=== PATIENT | male | born 1945 | race Caucasian/White ===

== ENCOUNTER 2025-04-27 14:52 | Inpatient (IN) ==
[2025-04-27] MEDS ORDERED: METOPROLOL TARTRATE 1 MG/ML VIAL IV ONE (15:10)
[2025-04-27] MEDS: METOPROLOL TARTRATE 1 MG/ML VIAL IV ONE (15:10)
--- NOTE | 2025-04-27 15:16 | XRay Report ---
XR chest 1V portable CLINICAL HISTORY: afib COMPARISON STUDY: None FINDINGS: There is mild cardiomegaly without pulmonary vascular congestion. No consolidation or pleur al effusion. No pneumothorax. IMPRESSION: No acute findings. ACT 112: Negative or not required by law. Electronically signed by: Toni Thomas M.D. 04/27/2025 3:15 PM
[2025-04-27 15:21] LABS: Hematocrit (blood only) 43.6 % (42.0-52.0); Hemoglobin 14.4 g/dl (14.0-18.0); Immature Granulocytes # (auto) 0.03 K/uL (0.01-0.20); Immature Granulocytes % (auto) 0.4 %; Mean Corpuscular Hemoglobin 31.0 pg (25.0-34.0); Mean Corpuscular Volume 93.8 fL (80.0-100.0); Platelet Count 141 K/uL (130-400); RDW Standard Deviation 46.8 fL (36.4-46.3); Red Blood Count 4.65 M/uL (4.70-6.10); White Blood Count 7.85 K/ul (4.8-10.8)
[2025-04-27] MEDS: OPTIRAY 320 125ml IV ONE (15:33)
[2025-04-27 15:40] LABS: Alanine Aminotransferase 13 U/L (7-52); Albumin Globulin Ratio 1.3 (0.9-2); Albumin Level 4.2 gm/dl (3.4-5.0); Alkaline Phosphatase 57 U/L (34-104); Anion Gap 11 (3-11); Bilirubin,Total 1.0 mg/dl (0.2-1.0); Blood Urea Nitrogen 15 mg/dl (6-23); Calcium 9.3 mg/dl (8.6-10.3); Carbon Dioxide 25 mmol/L (21-32); Chloride 100 mmol/L (98-107); Globulin 3.2 gm/dl (2.5-4.0); Glucose 155 mg/dl (70-99(Fasting)); Potassium 4.2 mmol/L (3.5-5.1); Sodium 136 mmol/L (136-145); Total Protein 7.4 gm/dl (6.0-8.3)
--- NOTE | 2025-04-27 15:47 | CT Scan Report ---
CT angio chest PE protocol CT DOSE: 898.99 mGy.cm HISTORY: Dyspnea, afib, PNA. TECHNIQUE: Multiple CTA images of the chest were obtained after the intravenous administration of 120 ml Optiray. Coronal and sagittal MIPS were obtained from the axial data set and were submitted for review. All measurements were obtained according to NASCET criteria. A dose lowering technique was u tilized adhering to the principles of ALARA. COMPARISON STUDY: None FINDINGS: There is motion artifact due to breathing. There are mild airway secretions. There is moder ate cardiomegaly with mild prominence of the pulmonary vasculature consistent with CHF. There are tra ce bilateral pleural effusions. There is septal thickening in the lungs and patchy groundglass opacit y at the mid and lower lungs which could represent pulmonary edema or pneumonia. There is bandlike op acity in the lung apices which likely represents scarring. No pneumothorax. No enlarged adenopathy. N o thoracic aortic aneurysm. No pulmonary embolism seen. No acute osseous findings. IMPRESSION: 1. No pulmonary embolism. 2. CHF with pulmonary edema versus pneumonia. ACT 112: Negative or not required by law. The above report was generated using voice recognition software. It may contain grammatical, syntax o r spelling errors. Electronically signed by: Toni Thomas M.D. 04/27/2025 3:45 PM
[2025-04-27] MEDS ORDERED: AZITHROMYCIN 500 MG/255 ML BAG IV ONE (15:48)
[2025-04-27] MEDS: METOPROLOL TARTRATE 1 MG/ML VIAL IV STA (15:59)
--- NOTE | 2025-04-27 16:01 | Emergency Department Note ---
Impression & Plan Atrial fibrillation with rapid ventricular response, Ventricular tachycardia, Pneumonia, CHF exacerbation ED Provider Note NAME: NATALIE [id number] LIDIA AGE: 80 SEX: M : 1945 ARRIVES VIA: Ambulance INFORMANT: Patient, ED PROVIDER(S): Vikram Gant MD CHIEF COMPLAINT: A-fib, chest pain HPI: This is a 80-year-old male presenting for A-fib and chest/back pain. Patient notes that being having low back pain and shoulder pain yesterday. He went to medical today where he was found to be in A-fib with RVR. He was sent to hypoxic as well. EMS provided oxygen without significant proved meant in his oxygenation. Patient continues to feel chest/back pain. He states his history of "leaky valve ". He reports has not had surgery for this yet. He reports previous heart attack in 2021. Patient describes prodrome of cough, chills previously over the past few days. ROS: See above HPI for pertinent positives & negatives. A total of 10 systems reviewed and were otherwise negative. PAST MEDICAL HISTORY: See Below PAST SURGICAL HISTORY: See Below FAMILY HISTORY: See Below SOCIAL HISTORY: See Below HOME MEDICATIONS: See Below ALLERGIES: See Below VITALS: See Below PHYSICAL EXAMINATION: General: resting comfortably in no acute distress Head: Normocephalic and atraumatic Eyes: Normal inspection, extraocular muscles intact Ear, nose, throat: Normal external exam Neck: Normal range of motion Respiratory: Crackles in all lung field Cardiovascular: Regular rate/rhythm, no murmur GI: soft, nontender, no guarding or rebound Extremities: nontender, moves all extremities Neuro: The patient awake and alert, appropriately conversive, no focal deficits, symmetric faces Skin: Warm, dry, and intact MEDICAL DECISION MAKING: This is a 80-year-old male presenting for A-fib/chest pain/back pain. Patient appears to be in A-fib with RVR with rates between 150 and 180. Will give metoprolol at this time. Patient has previous fluid overload on exam and legs. He has 2+ pitting edema. Otherwise patient describes prodrome of URI. Will do screening chest x-ray to assess for fluid overload versus pneumonia -Chest Xray independently interpreted by me showing cardiomegaly, no pneumothorax, focal opacity, or pleural effusions. -Blood reveals no leukocytosis or anemia. Creatinine 1.43. No severe electrolyte disturbances. -Troponin is elevated at 177 -CT chest does reveal signs of CHF with signs of pulmonary edema versus pneumonia -Will give antibiotics at this time but also give Lasix due to concerns of fluid overload, especially in setting of patient's previous aortic regurgitation, aortic stenosis, show regurg/stenosis and previous history of heart failure - Patient episode of NSVT for a few beats and then at when had a long run of ventricular tachycardia. Patient was asymptomatic at this time. He was awake, alert and talking. He spontaneously broke without any intervention. -At this time I bolused the patient with amiodarone as well as drip. Differential diagnosis: Tachydysrhythmia, CHF, pneumonia, PE Independent History obtained from: Skilled Nursing guards Diagnostics interpreted by me: ECG: None Cardiac Monitoring: An order was placed for continuous cardiac monitoring. The monitor shows a rate of 90 with atrial fibrillation hythm. Critical Care Note: I have personally spent 41 minutes of critical care time in the direct management of this patient. This includes bedside care, interpretation of diagnostic studies, and testing, discussion with consultants, patient, and family members, and other required patient management activities. This 41 minutes is in excess of all separately billable procedures. Past Med/Surg History Problem List (Updated 04/28/25 @ 23:54 by Vikram Gant MD) CHF exacerbation (Acute) Pneumonia (Acute) Ventricular tachycardia (Acute) Cardiomyopathy Elevated troponin Transaminitis Demand ischemia Atrial fibrillation with rapid ventricular response (Acute) Severe aortic regurgitation Pneumonia Hypoxic respiratory failure COVID V tach A-fib Valvular heart disease (HFpEF) heart failure with preserved ejection fraction Edema CKD (chronic kidney disease) Dyslipidemia Acute heart failure with preserved ejection fraction (HFpEF) Hypertension Mitral regurgitation and mitral stenosis Aortic regurgitation Aortic stenosis Medical History Cellulitis Major depressive disorder with psychotic features Degenerative disc disease Social History Smoking Status: Unknown if ever smoked Tobacco Type: Cigarettes Hx Alcohol Use: No Hx Substance Use: No Preferred Language: Swiss Communication Ability: Effective Visual Impairment: No Limitations Hearing Ability: Normal Gifted Teacher Required: No Beliefs That Will Affect Care: None Current Living Situation: Other Current Living Situation Comment: [facility] Feels Safe at Home: Yes Allergies Allergies Allergy/AdvReac Type Severity Reaction Status Date / Time No Known Drug Allergies Allergy Unknown Unverified 10/09/24 13:44 Home Meds Home Medications Medication Instructions Recorded Confirmed amlodipine 10 mg tablet 10 mg PO DAILY 11/20/22 10/09/24 aspirin 81 mg tablet,delayed 81 mg PO DAILY 11/20/22 10/09/24 release (Adult Low Dose Aspirin) atenolol 50 mg tablet 50 mg PO DAILY 11/20/22 10/09/24 lisinopril 40 mg tablet 40 mg PO DAILY 11/20/22 10/09/24 rosuvastatin 5 mg tablet 5 mg PO DAILY 11/20/22 10/09/24 vit B complex and vit C 1 tab PO DAILY 11/20/22 10/09/24 no.24-ferrous fum 66 mg-folic 1,000 mcg tablet (Nephron FA) thiothixene 2 mg capsule See Rx Instructions PO .COMPLEX 01/19/23 10/09/24 bumetanide 2 mg tablet 2 mg PO DAILY 10/09/24 10/09/24 dapagliflozin propanediol 10 mg 10 mg PO DAILY 10/09/24 10/09/24 tablet (Farxiga) omeprazole 20 mg capsule,delayed 20 mg PO DAILY 10/09/24 10/09/24 release trihexyphenidyl 5 mg tablet 5 mg PO TID 10/09/24 10/09/24 Results & Data (ED) Vital Signs Vital Signs - 24 hr 04/27/25 14:53 04/27/25 15:00 04/27/25 15:04 Temperature 37.0 C Temperature Source Oral Pulse Rate 155 H 158 H 145 H Pulse Rate from SpO2 Sensor 158 H Respiratory Rate 23 26 H Blood Pressure 112/68 Blood Pressure Mean 82 Pulse Oximetry 86 L 89 L Oxygen Delivery Method Room Air Non-rebreather Oxygen Flow Rate 15 Sepsis Recent Fever Within 48 Hours No Sepsis New/Unexplained Change in Mental Status No Sepsis Action Taken by Nursing Physician Notified Pulse Oximetry Post Tiitration 04/27/25 15:10 04/27/25 15:19 04/27/25 15:21 Temperature Temperature Source Pulse Rate 147 H 157 H Pulse Rate from SpO2 Sensor Respiratory Rate Blood Pressure 112/68 113/77 Blood Pressure Mean 94 Pulse Oximetry 81 L Oxygen Delivery Method Oxymask Oxygen Flow Rate 6 Sepsis Recent Fever Within 48 Hours Sepsis New/Unexplained Change in Mental Status Sepsis Action Taken by Nursing Pulse Oximetry Post Tiitration 04/27/25 15:41 04/27/25 15:41 04/27/25 15:42 Temperature Temperature Source Pulse Rate 152 H 145 H Pulse Rate from SpO2 Sensor 138 H Respiratory Rate 27 H Blood Pressure 115/91 115/91 Blood Pressure Mean 97 Pulse Oximetry 90 Oxygen Delivery Method Non-rebreather Oxygen Flow Rate 15 Sepsis Recent Fever Within 48 Hours Sepsis New/Unexplained Change in Mental Status Sepsis Action Taken by Nursing Pulse Oximetry Post Tiitration 04/27/25 15:45 04/27/25 15:45 04/27/25 15:50 Temperature Temperature Source Pulse Rate 138 H Pulse Rate from SpO2 Sensor 144 H Respiratory Rate 23 Blood Pressure 113/83 113/83 Blood Pressure Mean 90 93 Pulse Oximetry 89 L Oxygen Delivery Method Non-rebreather Non-rebreather Oxygen Flow Rate 15 15 Sepsis Recent Fever Within 48 Hours Sepsis New/Unexplained Change in Mental Status Sepsis Action Taken by Nursing Pulse Oximetry Post Tiitration 90 04/27/25 15:50 04/27/25 15:50 04/27/25 15:51 Temperature Temperature Source Pulse Rate 149 H Pulse Rate from SpO2 Sensor 155 H Respiratory Rate 22 Blood Pressure 104/85 Blood Pressure Mean 91 Pulse Oximetry 86 L Oxygen Delivery Method Non-rebreather Non-rebreather Oxygen Flow Rate 15 15 Sepsis Recent Fever Within 48 Hours Sepsis New/Unexplained Change in Mental Status Sepsis Action Taken by Nursing Pulse Oximetry Post Tiitration Laboratory Data 04/28/25 04:34 04/28/25 11:09 Lab Results 04/27/25 04/27/25 04/27/25 Range/Units 15:03 15:09 15:16 WBC 7.85 (4.8-10.8) K/ul RBC 4.65 L (4.70-6.10) M/uL Hgb 14.4 (14.0-18.0) g/dl POC Hgb 15.3 (14.0-18.0) g/dl Hct 43.6 (42.0-52.0) % POC Hct 45 (42-52) % MCV 93.8 (80.0-100.0) fL MCH 31.0 (25.0-34.0) pg MCHC 33.0 (32.0-36.0) g/dL RDW Std Deviation 46.8 H (36.4-46.3) fL RDW Coeff of Demarcus 13.7 (11.5-14.5) % Plt Count 141 (130-400) K/uL MPV 11.2 (9.4-12.4) fL Immature Gran % (Auto) 0.4 % Neut % (Auto) 74.4 % Lymph % (Auto) 8.9 % [place] % (Auto) 15.9 % Eos % (Auto) 0.1 % Baso % (Auto) 0.3 % Neut # (Auto) 5.84 (1.40-6.50) K/uL Lymph # (Auto) 0.70 L (1.20-3.40) K/uL [place] # (Auto) 1.25 H (0.11-0.59) K/uL Eos # (Auto) 0.01 (0.00-0.50) K/uL Baso # (Auto) 0.02 (0.00-0.20) K/uL Immature Gran # (Auto) 0.03 (0.01-0.20) K/uL PT 11.5 (9.0-12.0) Seconds INR 1.1 (0.9-1.1) APTT 31 (21-31) Seconds PTT Ratio 1.2 POC Sodium 137 (135-144) mmol/L Sodium 136 (136-145) mmol/L POC Potassium 4.2 (3.3-5.0) mmol/L Potassium 4.2 (3.5-5.1) mmol/L POC Chloride 100 L (101-112) mmol/L Chloride 100 (98-107) mmol/L Carbon Dioxide 25 (21-32) mmol/L POC Total CO2 24 (24-31) mmol/L Anion Gap 11 (3-11) POC Anion Gap 18.0 (16-25) mmol/L POC BUN 16 (7-18) mg/dl BUN 15 (6-23) mg/dl Creatinine 1.43 H (0.6-1.4) mg/dl POC Creatinine 1.5 H (0.6-1.3) mg/dl Est Cr Clr Drug Dosing Not Reportable eGFR 49.84 BUN/Creatinine Ratio 10.5 (10-20) Glucose 155 H (70-99(Fasting)) mg/dl POC Glucose (other) 154 H (70-99) mg/dl Calcium 9.3 (8.6-10.3) mg/dl POC Ioniz Calcium Madelin 1.11 L (1.12-1.32) mmol/l Total Bilirubin 1.0 (0.2-1.0) mg/dl AST 26 (13-39) U/L ALT 13 (7-52) U/L Alkaline Phosphatase 57 (34-104) U/L Troponin I High Sens 177.4 H* (0-20) pg/ml B-Natriuretic Peptide 728 H (0-100) pg/ml Total Protein 7.4 (6.0-8.3) gm/dl Albumin 4.2 (3.4-5.0) gm/dl Globulin 3.2 (2.5-4.0) gm/dl Albumin/Globulin Ratio 1.3 (0.9-2) Urine Color Urine Appearance (Clear) Urine pH (4.5-7.5) Ur Specific [place] (1.000-1.030) Urine Protein (Negative) Urine Glucose (UA) (Negative) Urine Ketones (Negative) Urine Blood (Negative) Urine Nitrite (Negative) Urine Bilirubin (Negative) Urine Urobilinogen (Negative) Ur Leukocyte Esterase (Negative) Urine Comment Adenovirus (PCR) Not Detected (NotDetected) B. pertussis DNA (PCR) Not Detected (NotDetected) B.parapertussis DNA PCR Not Detected (NotDetected) C. pneumoniae DNA (PCR) Not Detected (NotDetected) Coronavirus OC43 (PCR) Not Detected (NotDetected) Coronavirus HKU1 (PCR) Not Detected (NotDetected) Coronavirus 229E (PCR) Not Detected (NotDetected) SARS-CoV-2 (PCR) DETECTED A (NotDetected) Coronavirus NL63 (PCR) Not Detected (NotDetected) Human Metapneumovir PCR Not Detected (NotDetected) Influenza Type A (PCR) Not Detected (NotDetected) Influenza Type B (PCR) Not Detected (NotDetected) M. pneumoniae (PCR) Not Detected (NotDetected) Parainfluenza 1 (PCR) Not Detected (NotDetected) Parainfluenza 2 (PCR) Not Detected (NotDetected) Parainfluenza 3 (PCR) Not Detected (NotDetected) Parainfluenza 4 (PCR) Not Detected (NotDetected) RSV (PCR) Not Detected (NotDetected) Entero/Rhino (PCR) Not Detected (NotDetected) 04/27/25 Range/Units 16:18 WBC (4.8-10.8) K/ul RBC (4.70-6.10) M/uL Hgb (14.0-18.0) g/dl POC Hgb (14.0-18.0) g/dl Hct (42.0-52.0) % POC Hct (42-52) % MCV (80.0-100.0) fL MCH (25.0-34.0) pg MCHC (32.0-36.0) g/dL RDW Std Deviation (36.4-46.3) fL RDW Coeff of Demarcus (11.5-14.5) % Plt Count (130-400) K/uL MPV (9.4-12.4) fL Immature Gran % (Auto) % Neut % (Auto) % Lymph % (Auto) % [place] % (Auto) % Eos % (Auto) % Baso % (Auto) % Neut # (Auto) (1.40-6.50) K/uL Lymph # (Auto) (1.20-3.40) K/uL [place] # (Auto) (0.11-0.59) K/uL Eos # (Auto) (0.00-0.50) K/uL Baso # (Auto) (0.00-0.20) K/uL Immature Gran # (Auto) (0.01-0.20) K/uL PT (9.0-12.0) Seconds INR (0.9-1.1) APTT (21-31) Seconds PTT Ratio POC Sodium (135-144) mmol/L Sodium (136-145) mmol/L POC Potassium (3.3-5.0) mmol/L Potassium (3.5-5.1) mmol/L POC Chloride (101-112) mmol/L Chloride (98-107) mmol/L Carbon Dioxide (21-32) mmol/L POC Total CO2 (24-31) mmol/L Anion Gap (3-11) POC Anion Gap (16-25) mmol/L POC BUN (7-18) mg/dl BUN (6-23) mg/dl Creatinine (0.6-1.4) mg/dl POC Creatinine (0.6-1.3) mg/dl Est Cr Clr Drug Dosing eGFR BUN/Creatinine Ratio (10-20) Glucose (70-99(Fasting)) mg/dl POC Glucose (other) (70-99) mg/dl Calcium (8.6-10.3) mg/dl POC Ioniz Calcium [place] (1.12-1.32) mmol/l Total Bilirubin (0.2-1.0) mg/dl AST (13-39) U/L ALT (7-52) U/L Alkaline Phosphatase (34-104) U/L Troponin I High Sens (0-20) pg/ml B-Natriuretic Peptide (0-100) pg/ml Total Protein (6.0-8.3) gm/dl Albumin (3.4-5.0) gm/dl Globulin (2.5-4.0) gm/dl Albumin/Globulin Ratio (0.9-2) Urine Color Yellow Urine Appearance Clear (Clear) Urine pH 5.5 (4.5-7.5) Ur Specific [place] 1.037 H (1.000-1.030) Urine Protein Negative (Negative) Urine Glucose (UA) 3+ H (Negative) Urine Ketones Negative (Negative) Urine Blood Negative (Negative) Urine Nitrite Negative (Negative) Urine Bilirubin Negative (Negative) Urine Urobilinogen Negative (Negative) Ur Leukocyte Esterase Negative (Negative) Urine Comment Adenovirus (PCR) (NotDetected) B. pertussis DNA (PCR) (NotDetected) B.parapertussis DNA PCR (NotDetected) C. pneumoniae DNA (PCR) (NotDetected) Coronavirus OC43 (PCR) (NotDetected) Coronavirus HKU1 (PCR) (NotDetected) Coronavirus 229E (PCR) (NotDetected) SARS-CoV-2 (PCR) (NotDetected) Coronavirus NL63 (PCR) (NotDetected) Human Metapneumovir PCR (NotDetected) Influenza Type A (PCR) (NotDetected) Influenza Type B (PCR) (NotDetected) M. pneumoniae (PCR) (NotDetected) Parainfluenza 1 (PCR) (NotDetected) Parainfluenza 2 (PCR) (NotDetected) Parainfluenza 3 (PCR) (NotDetected) Parainfluenza 4 (PCR) (NotDetected) RSV (PCR) (NotDetected) Entero/Rhino (PCR) (NotDetected) Administered Medications Aspirin (Aspirin 81 Mg Ectab) 81 mg PO DAILY PB Stop: 05/28/25 08:59 Last Admin: 04/28/25 08:23 Dose: 81 mg Documented By: LAVERNE Guaifenesin (Guaifenesin 600 Mg Tabcr) 1,200 mg PO Q12 PB Stop: 05/27/25 20:59 Last Admin: 04/28/25 20:37 Dose: 1,200 mg Documented By: Admin: 04/28/25 08:28 Dose: 1,200 mg Documented By: Admin: 04/27/25 20:15 Dose: Not Given Documented By: CATY Amiodarone HCl/Dextrose (Nexterone / D5w) 360 mg in 200 mls @ 16.667 mls/hr IV .Q12H PB Stop: 05/27/25 22:14 Last Admin: 04/28/25 21:45 Dose: 0.5 mg/min, 16.7 mls/hr Documented By: EDEN Co-signed By: CATY Infusion: 04/28/25 21:36 Dose: Infused Documented By: MMDora Co-signed By: CATY Admin: 04/28/25 09:37 Dose: 0.5 mg/min, 16.7 mls/hr Documented By: LAVERNE Co-signed By: CB Infusion: 04/28/25 09:37 Dose: Infused Documented By: LAVERNE Co-signed By: CB Infusion: 04/28/25 07:03 Dose: 0.5 mg/min, 16.7 mls/hr Documented By: CATY Co-signed By: LAVERNE Admin: 04/27/25 22:43 Dose: 0.5 mg/min, 16.7 mls/hr Documented By: TLWilliam Co-signed By: [id number] Cefepime HCl (Maxipime 2000mg) 2,000 mg in 20 mls @ 5 mls/min IV Q12H PB; Protocol Stop: 05/02/25 20:59 Last Admin: 04/28/25 20:38 Dose: 5 mls/min Documented By: Admin: 04/28/25 08:21 Dose: 5 mls/min Documented By: Admin: 04/27/25 20:15 Dose: 5 mls/min Documented By: CATY Heparin Sodium/Dextrose (Heparin 24042 Unit/500 Ml D5w) 25,000 units in 500 mls @ 24 mls/hr IV .[id number] PB; Protocol Stop: 05/27/25 17:29 Last Titration: 04/28/25 19:16 Dose: 1,200 units/hr, 24 mls/hr Documented By: LAVERNE Co-signed By: CATY Admin: 04/28/25 16:23 Dose: 1,200 units/hr, 24 mls/hr Documented By: LAVERNE Co-signed By: [facility] Titration: 04/28/25 16:23 Dose: Infused Documented By: LAVERNE Co-signed By: [facility] Titration: 04/28/25 07:03 Dose: 1,200 units/hr, 24 mls/hr Documented By: CATY Co-signed By: LAVERNE Titration: 04/28/25 05:25 Dose: 1,200 units/hr, 24 mls/hr Documented By: CATY Co-signed By: RASHIDA Titration: 04/28/25 01:35 Dose: 0 units/hr, 0 mls/hr Documented By: CATY Co-signed By: RASHIDAG Admin: 04/27/25 18:45 Dose: 1,650 units/hr, 33 mls/hr Documented By: LAVERNE Co-signed By: CATY Azithromycin (Zithromax) 500 mg in 255 mls @ 127.5 mls/hr IV Q24H PB Stop: 05/03/25 09:59 Last Infusion: 04/28/25 13:41 Dose: Infused Documented By: Admin: 04/28/25 11:04 Dose: 127.5 mls/hr Documented By: LAVERNE Hydrocortisone Sodium (Succinate 50 mg/ Syringe) 1 mls @ 4 mls/min IV Q6H PB Stop: 05/28/25 09:59 Last Admin: 04/28/25 22:19 Dose: 4 mls/min Documented By: Admin: 04/28/25 16:22 Dose: 4 mls/min Documented By: Admin: 04/28/25 11:04 Dose: 4 mls/min Documented By: LAVERNE Insulin Aspart (Insulin Aspart Per Unit Charge) 0 units SC Q6 PB Stop: 05/28/25 00:00 Last Admin: 04/28/25 23:49 Dose: Not Given Documented By: Admin: 04/28/25 18:21 Dose: Not Given Documented By: Admin: 04/28/25 12:24 Dose: Not Given Documented By: Admin: 04/28/25 05:41 Dose: 1 units Documented By: CATY Co-signed By: RICCO Admin: 04/27/25 23:53 Dose: 1 units Documented By: CATY Co-signed By: [id number] Metoprolol Tartrate (Metoprolol Tartrate 25 Mg Tab) 12.5 mg PO BID PB Stop: 05/28/25 09:44 Last Admin: 04/28/25 20:37 Dose: 12.5 mg Documented By: Admin: 04/28/25 11:05 Dose: 12.5 mg Documented By: LAVERNE Ondansetron HCl (Ondansetron Inj 2 Mg/Ml 2 Ml Vial) 4 mg IV Q4H PRN PRN Reason: Nausea Stop: 05/27/25 21:22 Last Admin: 04/27/25 21:36 Dose: 4 mg Documented By: CATY Pantoprazole Sodium (Pantoprazole 40 Mg Tab) 40 mg PO DAILY PB Stop: 05/28/25 08:59 Last Admin: 04/28/25 08:22 Dose: 40 mg Documented By: LAVERNE Rosuvastatin Calcium (Rosuvastatin Calcium 5 Mg Tab) 5 mg PO DAILY PB Stop: 05/28/25 08:59 Last Admin: 04/28/25 08:22 Dose: 5 mg Documented By: LAVERNE Thiothixene (Thiothixene 1 Mg Cap) 3 mg PO BID PB Stop: 05/27/25 20:59 Last Admin: 04/28/25 20:38 Dose: 3 mg Documented By: Admin: 04/28/25 08:21 Dose: 3 mg Documented By: Admin: 04/27/25 21:14 Dose: 3 mg Documented By: TLM Thiothixene (Thiothixene 5 Mg Cap) 5 mg PO BID PB Stop: 05/27/25 20:59 Last Admin: 04/28/25 20:38 Dose: 5 mg Documented By: Admin: 04/28/25 08:21 Dose: 5 mg Documented By: Admin: 04/27/25 21:14 Dose: 5 mg Documented By: TLM Trihexyphenidyl HCl (Trihexyphenidyl Hcl 5 Mg Tab) 5 mg PO TIDM PB Stop: 05/27/25 18:29 Last Admin: 04/28/25 16:22 Dose: 5 mg Documented By: Admin: 04/28/25 12:45 Dose: 5 mg Documented By: Admin: 04/28/25 08:25 Dose: 5 mg Documented By: Admin: 04/27/25 19:04 Dose: Not Given Documented By: AMS Vitamin B Complex/Folic Acid (Nephrocaps) 1 cap PO DAILY PB Stop: 05/28/25 08:59 Last Admin: 04/28/25 08:21 Dose: 1 cap Documented By: AMS Discontinued Medications Amiodarone HCl (Amiodarone Iv Bolus & Drip) 1 each IV NOW STA; Protocol Stop: 04/27/25 16:16 Last Admin: 04/27/25 16:41 Dose: Not Given Documented By: CEF Amiodarone HCl (Amiodarone Hcl Inj 50 Mg/Ml 3 Ml Vial) Confirm Administered Dose 150 mg IV .STK-MED ONE Stop: 04/27/25 16:31 Last Admin: 04/27/25 16:40 Dose: Not Given Documented By: CEF Dexamethasone (Dexamethasone 1 Mg Tab) 1 mg PO NOW STA Stop: 04/27/25 17:26 Last Admin: 04/27/25 18:43 Dose: Not Given Documented By: AMS Furosemide (Furosemide 40 Mg/4 Ml Vial) 40 mg IV ONE ONE Stop: 04/27/25 15:56 Last Admin: 04/27/25 16:02 Dose: 40 mg Documented By: CEF Furosemide (Furosemide 40 Mg/4 Ml Vial) 40 mg IV ONE ONE Stop: 04/28/25 10:41 Last Admin: 04/28/25 11:04 Dose: 40 mg Documented By: AMS Heparin Sodium (Porcine) (Heparin Sod (Porcine) 1000 Unit/Ml) 7,000 units IV NOW ONE Stop: 04/27/25 17:36 Last Admin: 04/27/25 18:45 Dose: 7,000 units Documented By: LAVERNE Co-signed By: CATY Heparin Sodium/Dextrose (Heparin Iv Adult Wt-Based Standard W/ Initial Bolus Protocol) 1 each IV NOW STA; Protocol Stop: 04/27/25 17:21 Last Admin: 04/27/25 18:45 Dose: 1 each Documented By: LAVERNE Ceftriaxone Sodium (Rocephin) 2,000 mg in 50 mls @ 100 mls/hr IV NOW STA Stop: 04/27/25 16:17 Last Infusion: 04/27/25 19:46 Dose: Infused Documented By: Admin: 04/27/25 16:46 Dose: 100 mls/hr Documented By: CEF Amiodarone HCl/Dextrose (Nexterone / D5w) 150 mg in 100 mls @ 600 mls/hr IV NOW STA Stop: 04/27/25 16:24 Last Infusion: 04/27/25 16:47 Dose: Infused Documented By: CEF Co-signed By: CHRISTOPHER Admin: 04/27/25 16:34 Dose: 600 mls/hr Documented By: CEF Co-signed By: MICHELLE Amiodarone HCl/Dextrose (Nexterone / D5w) 360 mg in 200 mls @ 33.333 mls/hr IV ONE ONE Stop: 04/27/25 22:24 Last Infusion: 04/27/25 22:48 Dose: Infused Documented By: CATY Co-signed By: TJ Infusion: 04/27/25 19:02 Dose: 1 mg/min, 33.3 mls/hr Documented By: LAVERNE Co-signed By: CATY Admin: 04/27/25 16:45 Dose: 1 mg/min, 33.3 mls/hr Documented By: CEF Co-signed By: CHRISTOPHER Doxycycline Hyclate 100 mg/ (Dextrose) 100 mls @ 50 mls/hr IV NOW STA Stop: 04/27/25 18:17 Last Infusion: 04/27/25 19:30 Dose: Infused Documented By: Admin: 04/27/25 17:12 Dose: 50 mls/hr Documented By: CEF Magnesium Sulfate/Dextrose (Magnesium Sulfate / D5w) 1 gm in 100 mls @ 200 mls/hr IV Q30M PB Stop: 04/27/25 18:01 Last Infusion: 04/27/25 19:30 Dose: Infused Documented By: Admin: 04/27/25 18:43 Dose: 200 mls/hr Documented By: Infusion: 04/27/25 17:52 Dose: Infused Documented By: Admin: 04/27/25 17:22 Dose: 200 mls/hr Documented By: CEF Remdesivir 200 mg/ Sodium (Chloride) 250 mls @ 125 mls/hr IV NOW ONE Stop: 04/28/25 11:44 Last Infusion: 04/28/25 13:41 Dose: Infused Documented By: Admin: 04/28/25 11:04 Dose: 125 mls/hr Documented By: LAVERNE Digoxin 250 mcg/ Syringe 10 mls @ 2 mls/min IV NOW STA Stop: 04/28/25 14:06 Last Admin: 04/28/25 14:31 Dose: 2 mls/min Documented By: LAVERNE Digoxin 250 mcg/ Syringe 10 mls @ 2 mls/min IV ONE ONE Stop: 04/28/25 16:04 Last Admin: 04/28/25 16:22 Dose: 2 mls/min Documented By: LAVERNE Insulin Aspart (Insulin Aspart Per Unit Charge) 0 units SC NOW STA Stop: 04/27/25 19:51 Last Admin: 04/27/25 20:14 Dose: 3 units Documented By: CATY Co-signed By: [id number] Ioversol (Optiray 320 125ml) 118 ml IV ONCE ONE Stop: 04/27/25 15:33 Last Admin: 04/27/25 15:33 Dose: 118 ml Documented By: NIC Metoclopramide HCl (Metoclopramide Hcl Inj 5 Mg/Ml 2 Ml Vial) 10 mg IV Q6H PRN PRN Reason: Nausea Last Admin: 04/28/25 01:20 Dose: 10 mg Documented By: CATY Metoprolol Tartrate (Metoprolol Tartrate 1 Mg/Ml Vial) Confirm Administered Dose 5 mg IV .STK-MED ONE Stop: 04/27/25 15:02 Last Admin: 04/27/25 15:10 Dose: 5 mg Documented By: CEF Metoprolol Tartrate (Metoprolol Tartrate 1 Mg/Ml Vial) 5 mg IV NOW STA Stop: 04/27/25 15:49 Last Admin: 04/27/25 15:59 Dose: 5 mg Documented By: CEF Miscellaneous (Stat Iv Infusion Titration Per Protocol) 1 each N/A NOW STA Stop: 04/27/25 16:16 Last Admin: 04/27/25 16:41 Dose: Not Given Documented By: CEF Imaging Data Radiologist's Impression: Chest X-Ray 04/27/25 15:00 XR chest 1V portable CLINICAL HISTORY: afib COMPARISON STUDY: None FINDINGS: There is mild cardiomegaly without pulmonary vascular congestion. No consolidation or pleural effusion. No pneumothorax. IMPRESSION: No acute findings. ACT 112: Negative or not required by law. Electronically signed by: Toni Thomas M.D. 04/27/2025 3:15 PM Chest CTA 04/27/25 15:08 CT angio chest PE protocol CT DOSE: 898.99 mGy.cm HISTORY: Dyspnea, afib, PNA. TECHNIQUE: Multiple CTA images of the chest were obtained after the intravenous administration of 120 ml Optiray. Coronal and sagittal MIPS were obtained from the axial data set and were submitted for review. All measurements were obtained according to NASCET criteria. A dose lowering technique was utilized adhering to the principles of ALARA. COMPARISON STUDY: None FINDINGS: There is motion artifact due to breathing. There are mild airway secretions. There is moderate cardiomegaly with mild prominence of the pulmonary vasculature consistent with CHF. There are trace bilateral pleural effusions. There is septal thickening in the lungs and patchy groundglass opacity at the mid and lower lungs which could represent pulmonary edema or pneumonia. There is bandlike opacity in the lung apices which likely represents scarring. No pneumothorax. No enlarged adenopathy. No thoracic aortic aneurysm. No pulmonary embolism seen. No acute osseous findings. IMPRESSION: 1. No pulmonary embolism. 2. CHF with pulmonary edema versus pneumonia. ACT 112: Negative or not required by law. The above report was generated using voice recognition software. It may contain grammatical, syntax or spelling errors. Electronically signed by: Toni Thomas M.D. 04/27/2025 3:45 PM Discharge Plan Visit Data Chief Complaint: Cardiac Assessment ED Provider: Vikram Gant Discharge Problem: Atrial fibrillation with rapid ventricular response, Ventricular tachycardia, Pneumonia, CHF exacerbation Patient Disposition: Admitted As Inpatient Condition: Serious Discharge Instructions Interventions: ED Discharge Assessment Last Done: 04/27/25 17:43
[2025-04-27] MEDS: FUROSEMIDE 40 MG/4 ML VIAL IV ONE (16:02)
[2025-04-27 16:15] LABS: Chlamydia pneumoniae PCR Not Detected (NotDetected); Coronavirus 229E PCR Not Detected (NotDetected); Coronavirus CoV-2 (COVID19)PCR DETECTED (NotDetected); Coronavirus HKU1 PCR Not Detected (NotDetected); Coronavirus NL63 PCR Not Detected (NotDetected); Coronavirus OC43PCR Not Detected (NotDetected); Human Metapneumovirus PCR Not Detected (NotDetected); Parainfluenza Virus 1 PCR Not Detected (NotDetected); Parainfluenza Virus 2 PCR Not Detected (NotDetected); Parainfluenza Virus 3 PCR Not Detected (NotDetected); Parainfluenza Virus 4 PCR Not Detected (NotDetected); Respiratory Syncytial VirusPCR Not Detected (NotDetected); Rhinovirus/Enterovirus PCR Not Detected (NotDetected)
[2025-04-27] MEDS ORDERED: 0.2 MICRON FILTER SET 1 EACH IV STA (16:15)
[2025-04-27] MEDS: AMIODARONE / D5W 150 MG/100 ML BAG IV STA (16:34)
[2025-04-27] MEDS: AMIODARONE HCL INJ 50 MG/ML 3 ML VIAL IV ONE (16:40)
[2025-04-27] MEDS: AMIODARONE IV BOLUS & DRIP IV STA (16:41)
[2025-04-27] MEDS: STAT IV Infusion **Titration per Protocol STA (16:41)
[2025-04-27] MEDS: AMIODARONE / D5W 360 MG/200 ML BAG IV ONE (16:45)
[2025-04-27] MEDS: cefTRIAXone SODIUM 2,000 MG/50 ML BAG IV STA (16:46)
[2025-04-27 17:07] LABS: Appearance Urine Clear (Clear); Glucose Urine UA 3+ (Negative)
--- NOTE | 2025-04-27 17:08 | History & Physical Report ---
Date of Service April 27, 2025 Assessment & Plan (1) A-fib: Plan: Mr.william maria is a 80 yo male, longterm; with PMH of CAD, CHFpEF, aortic stenosis, mitral stenosis, CKD, depression with psychosis, hypertension he been having coughing, shortness of breath for 3-4 days, also been having left side chest pain radiate into the forearm. on wednesday, 04/27, presented from longterm to our hospital with shortness of breath, found to has hypoxic respiratory failure on 15 liter, A-fib with RVR,CTA found pneumonia versus volume overload. covid positve he's was started on amiodarone infusion, ceftriaxone, doxycycline and started on lasix. he will be in medicine services for A-fib/V-tach, and acute respiratory failure. pneumonia 1. acute A-fib/Vtach 2. acute hypoxic respiratory failure 3. pneumonia 4. covid infection. 5. aortic stenosis 6. CHF with preserved EF 7. CKD 8. hypertension 9. PMh of CAD 10. hx of overactive bladder 1. acute A-fib, V-tach amiodarone infusion, heparin repeat echo, cardilogy notified 2. chest pain episode, cycyle troponin, aspirin, heparin ACS dose. statin 3. pna. cefepime, doxycycyline, mucinex. 4. covid infection, 5. acute respiratory failure, he need 15 liter oxygen albuterol, mucinex. low dose prednisone 6. aortic stenosis, avoid nitrate severe mitral regurgitation echo done in 2024, show moderate 7. CHF, he's normally take atenolol 50mg and bumex 2mg daily lisinopril 40mg at home 8. GERD, he's on omeprazole 20mg at home 9. he's on thiothixene 2mg (4 caps) BID 8mg BID 10. code status: full code (2) V tach: (3) COVID: (4) Hypoxic respiratory failure: (5) Pneumonia: History of Present Illness Chief Complaint: 3-4 days history of coughing, shortness of breath PNA, 15 liter oxygen A-fib, V-tach covid infection hx of aortic stenosis Primary Care Provider: [facility] Mr. Prince Maria is a 80 yo male, he live in longterm. PMH of Aortic stenosis, cAD, CHF with preserve EF, HTN, mitral regurgitation. since 3-4 days ago, he been having shortness of breath, congestion and difficulty breathing since yesterday, he was also having chest discomfort episode. he's normally can walk around his longterm block ([address]) several times per day. his last echo show EF of 70% on 04/27/2025, he's was brought from longterm to our hospital ED for evaluation, he's was found to has hypoxic and need 15 liter via ventimask his CTA negative for PE, but found PNA versus volume overload, he's covid positive he's was found to has A-fib episode, seen by ED physician and started on amaiodarone infusion ED colleague started him on ceftriaxone, doxycycycline. he's s/p lasix on evaluation at 4:45pm, his BP was soft in the 100, and HR in 120 he's was AAOx3; no dizziness. he's requested for full code he's denied updating the daughter Allergies Allergy/AdvReac Type Severity Reaction Status Date / Time No Known Drug Allergies Allergy Unknown Unverified 10/09/24 13:44 Home Medications Medication Instructions Recorded Confirmed Type amlodipine 10 mg tablet 10 mg PO DAILY 11/20/22 10/09/24 History aspirin 81 mg tablet,delayed 81 mg PO DAILY 11/20/22 10/09/24 History release (Adult Low Dose Aspirin) atenolol 50 mg tablet 50 mg PO DAILY 11/20/22 10/09/24 History lisinopril 40 mg tablet 40 mg PO DAILY 11/20/22 10/09/24 History rosuvastatin 5 mg tablet 5 mg PO DAILY 11/20/22 10/09/24 History vit B complex and vit C 1 tab PO DAILY 11/20/22 10/09/24 History no.24-ferrous fum 66 mg-folic 1,000 mcg tablet (Nephron FA) thiothixene 2 mg capsule See Rx Instructions PO .COMPLEX 01/19/23 10/09/24 History bumetanide 2 mg tablet 2 mg PO DAILY 10/09/24 10/09/24 History dapagliflozin propanediol 10 mg 10 mg PO DAILY 10/09/24 10/09/24 History tablet (Farxiga) omeprazole 20 mg capsule,delayed 20 mg PO DAILY 10/09/24 10/09/24 History release trihexyphenidyl 5 mg tablet 5 mg PO TID 10/09/24 10/09/24 History Past Med/Surg History Problem List (Updated 04/27/25 @ 17:01 by David Koch DO) Pneumonia Hypoxic respiratory failure COVID V tach A-fib Valvular heart disease (HFpEF) heart failure with preserved ejection fraction Edema CKD (chronic kidney disease) Dyslipidemia Acute heart failure with preserved ejection fraction (HFpEF) Hypertension Mitral regurgitation and mitral stenosis Aortic regurgitation Aortic stenosis Medical History Cellulitis Major depressive disorder with psychotic features Degenerative disc disease CKD (chronic kidney disease) Dyslipidemia Acute heart failure with preserved ejection fraction (HFpEF) Hypertension Mitral regurgitation and mitral stenosis Aortic regurgitation Aortic stenosis Social History Smoking Status: Former smoker Tobacco Type: Cigarettes Preferred Language: Chilean Visual Impairment: No Limitations Hearing Ability: Normal Supervisor Data Processing Required: No Beliefs That Will Affect Care: None Feels Safe at Home: Yes Review of Systems Review of Systems: Constitutional: No Weight Change, No Fever, No Chills, No Night Sweats, No Fatigue, No Malaise Cardiovascular: positive Chest Pain, No SOB, No PND, No Dyspnea on Exertion, No Orthopnea, No Edema, No Palpitations Respiratory: + for shortness of breath; congestion; no orthopnea; no wheezing; no muscle achiness Gastrointestinal: No Nausea, No Vomiting, No Diarrhea, No Constipation, No Pain, No Heartburn, No Anorexia, No Dysphagia, No Hematochezia, No Melena, Genitourinary: no dysuria Musculoskeletal: no muscle ach Skin: No Skin Lesions, No Pruritis, No Hair Changes, No Breast/Skin Changes, No Nipple Discharge Neuro: no dizziness; no confusion, no weakness Heme/Lymph: No Bruising, No Bleeding, No Transfusions History, No Lymphadenopathy Endocrine: No Polyuria, No Polydipsia, No Temperature Intolerance Physical Exam Physical Exam: VITALS: Reviewed. WEIGHT/BMI reviewed. GEN: Healthy appearing, well-developed, NAD. HEENT -Head: NC/AT; -Eyes: PERRL, EOMI. No discharge or redn ess; -Ears: External ears are normal. Normal TMs. -Nose: Normal nares. NECK: no JVD CV: RRR, no m/r/g. + for murmur LUNGS: on 15 liter; congested breath sound; no wheezing ABD: Soft, NT/ND, NBS, no masses or organomegaly. SKIN: Warm, well perfused. No skin rashes or abnormal lesions. MSK: No deformities, Normal gait. EXT: No clubbing, cyanosis, or edema. Neuro: AAOx3 Results & Data Results & Data Vital Signs (Past 12 Hours) Vital Signs Temp Pulse Resp BP Pulse Ox O2 Del Method O2 Flow Rate 04/27/25 16:40 120 H 04/27/25 15:59 149 H 124/82 04/27/25 15:51 149 H 22 86 L Non-rebreather 15 04/27/25 15:50 104/85 04/27/25 15:50 Non-rebreather 15 04/27/25 15:50 Non-rebreather 15 04/27/25 15:45 138 H 23 113/83 89 L Non-rebreather 15 04/27/25 15:45 113/83 04/27/25 15:42 145 H 27 H 90 Non-rebreather 15 04/27/25 15:41 115/91 04/27/25 15:41 152 H 115/91 04/27/25 15:21 113/77 04/27/25 15:19 157 H 81 L Oxymask 6 04/27/25 15:10 147 H 112/68 04/27/25 15:04 145 H 04/27/25 15:00 158 H 26 H 89 L Non-rebreather 15 04/27/25 14:53 37.0 C 155 H 23 112/68 86 L Room Air Laboratory Results Laboratory Results - last 72 hr 04/27/25 04/27/25 04/27/25 15:03 15:09 15:16 WBC 7.85 RBC 4.65 L Hgb 14.4 POC Hgb 15.3 Hct 43.6 POC Hct 45 MCV 93.8 MCH 31.0 MCHC 33.0 RDW Std Deviation 46.8 H RDW Coeff of Demarcus 13.7 Plt Count 141 MPV 11.2 Immature Gran % (Auto) 0.4 Neut % (Auto) 74.4 Lymph % (Auto) 8.9 [place] % (Auto) 15.9 Eos % (Auto) 0.1 Baso % (Auto) 0.3 Neut # (Auto) 5.84 Lymph # (Auto) 0.70 L [place] # (Auto) 1.25 H Eos # (Auto) 0.01 Baso # (Auto) 0.02 Immature Gran # (Auto) 0.03 POC Sodium 137 Sodium 136 POC Potassium 4.2 Potassium 4.2 POC Chloride 100 L Chloride 100 Carbon Dioxide 25 POC Total CO2 24 Anion Gap 11 POC Anion Gap 18.0 POC BUN 16 BUN 15 Creatinine 1.43 H POC Creatinine 1.5 H Est Cr Clr Drug Dosing Not Reportable eGFR 49.84 BUN/Creatinine Ratio 10.5 Glucose 155 H POC Glucose (other) 154 H Calcium 9.3 POC Ioniz Calcium Madelin 1.11 L Total Bilirubin 1.0 AST 26 ALT 13 Alkaline Phosphatase 57 Troponin I High Sens 177.4 H* B-Natriuretic Peptide 728 H Total Protein 7.4 Albumin 4.2 Globulin 3.2 Albumin/Globulin Ratio 1.3 Adenovirus (PCR) Not Detected B. pertussis DNA (PCR) Not Detected B.parapertussis DNA PCR Not Detected C. pneumoniae DNA (PCR) Not Detected Coronavirus OC43 (PCR) Not Detected Coronavirus HKU1 (PCR) Not Detected Coronavirus 229E (PCR) Not Detected SARS-CoV-2 (PCR) DETECTED A Coronavirus NL63 (PCR) Not Detected Human Metapneumovir PCR Not Detected Influenza Type A (PCR) Not Detected Influenza Type B (PCR) Not Detected M. pneumoniae (PCR) Not Detected Parainfluenza 1 (PCR) Not Detected Parainfluenza 2 (PCR) Not Detected Parainfluenza 3 (PCR) Not Detected Parainfluenza 4 (PCR) Not Detected RSV (PCR) Not Detected Entero/Rhino (PCR) Not Detected Medications Administered Current Inpatient Medications Guaifenesin (Guaifenesin 600 Mg Tabcr) 1,200 mg PO Q12 PB Stop: 05/27/25 20:59 Amiodarone HCl/Dextrose (Nexterone / D5w) 360 mg in 200 mls @ 33.333 mls/hr IV ONE ONE Stop: 04/27/25 22:24 Last Admin: 04/27/25 16:45 Dose: 1 mg/min, 33.3 mls/hr Amiodarone HCl/Dextrose (Nexterone / D5w) 360 mg in 200 mls @ 16.667 mls/hr IV .Q12H PB Stop: 05/27/25 22:14 Doxycycline Hyclate 100 mg/ (Dextrose) 100 mls @ 50 mls/hr IV NOW STA Stop: 04/27/25 18:17 Cefepime HCl (Maxipime 2000mg) 2,000 mg in 20 mls @ 5 mls/min IV Q12H PB; Prot ocol Stop: 05/02/25 20:59 PG Care Time/CCT Total # of Minutes Spent Total Time Spent with Patient: Total time spent is greater than 50% in coordination of care (as documented) at patient's floor/unit and/or counseling patient: Coding Level of Care Code 30076 INT INP/OBS CARE 2/55MIN Diagnoses A-fib I48.91 V tach I47.20 COVID U07.1 Hypoxic respiratory failure J96.91 Pneumonia J18.9 Time Spent (min) 55
[2025-04-27] MEDS: DOXYCYCLINE HYCLATE 100 MG in DEXTROSE 5% MINI-B 100 ML IV STA (17:12)
[2025-04-27] MEDS ORDERED: Heparin IV Adult Wt-Based Low-Dose *NO* INITIAL Bolus Protocol IV STA (17:14)
--- NOTE | 2025-04-27 17:16 | Critical Care Consultation ---
Date of Consultation April 27, 2025 Assessment & Plan (1) Hypoxic respiratory failure: Wean oxygen as able. BiPAP as needed. Acute hypoxic respite failure likely secondary to pulmonary edema plus or minus viral pneumonia component given COVID-19. Patient empirically being treated for community-acquired pneumonia as well by hospitalist service. Airborne precautions. Add urine Legionella antigen. Check CRP and ESR. Consider addition of corticosteroids if clinical deterioration or significantly elevated biomarkers. (2) Acute heart failure with preserved ejection fraction (HFpEF): Patient received 40 mg of IV Lasix in the ER. Monitoring urine output and respiratory status closely. Consider additional Lasix as needed. (3) Atrial fibrillation with rapid ventricular response: Discussed with ER physician. I recommended giving magnesium sulfate. Patient placed on amiodarone given V. tach. Consider the addition of low-dose metoprolol as well. Check TSH. Trend troponins. Initiate low-dose heparin infusion. (4) Severe aortic regurgitation: Patient severely preload dependent given significant valvular issues. Patient received diuretics in the ER. If vasopressor support is required, would favor phenylephrine in light of the patient's atrial fibrillation and ventricular tachycardia. (5) Aortic stenosis: See above comments regarding preload dependence. (6) V tach: Amiodarone as above. Monitor telemetry closely. TSH ordered. Maintain magnesium above 2 and potassium above 4. (7) Mitral regurgitation and mitral stenosis: Plan CRITICAL CARE TIME I have personally spent 45 minutes of critical care time in the direct management of this patient. This is a life/limb threatening event. This includes time spent evaluating patient, direct bedside care, chart review, placing orders, interpretation of diagnostic studies, discussion with consultants, patient, and family members, as well as other required patient management activities. This time is exclusive of all separately billable procedures, and teaching time and separate from and in addition to any other critical care service time. I personally spent 45 minutes on the date of service in activities related to this patient's encounter, including 30 minutes of counseling with patient regarding treatment plan and 15 minutes of clinical review of lab results and documentation. I did memorial counselor the patient regarding their diagnosis and treatment plan and they expressed understanding. This note was dictated using voice recognition software and may include grammatical errors, extra words, word substitutions and other inaccuracies due to errors in the voice recognition software and differences in speech patterns. History of Present Illness Reason for Consultation: "V. tach, ARF (15 L), PNA, A-fib" History of Present Illness 80-year-old male with a history of severe aortic regurgitation, moderate aortic stenosis and moderate mitral stenosis who was found to be short of breath and presented today. He was brought to the hospital and was found to be in A-fib RVR. He had a brief run of ventricular tachycardia and was started on amiodarone. He received 40 mg of IV Lasix. He is currently on 15 L nonre breather with saturations in the low 90s. Chest CT revealed bilateral pulmonary edema and small bilateral effusions. No pulmonary embolism identified. I did personally review the imaging. Respiratory viral panel was positive for COVID- 19. Patient afebrile currently. No significant leukocytosis noted. Patient with mild ZORAN and BNP is elevated. Allergies Allergy/AdvReac Type Severity Reaction Status Date / Time No Known Drug Allergies Allergy Unknown Unverified 10/09/24 13:44 Home Medications Medication Instructions Recorded Confirmed Type amlodipine 10 mg tablet 10 mg PO DAILY 11/20/22 10/09/24 History aspirin 81 mg tablet,delayed 81 mg PO DAILY 11/20/22 10/09/24 History release (Adult Low Dose Aspirin) atenolol 50 mg tablet 50 mg PO DAILY 11/20/22 10/09/24 History lisinopril 40 mg tablet 40 mg PO DAILY 11/20/22 10/09/24 History rosuvastatin 5 mg tablet 5 mg PO DAILY 11/20/22 10/09/24 History vit B complex and vit C 1 tab PO DAILY 11/20/22 10/09/24 History no.24-ferrous fum 66 mg-folic 1,000 mcg tablet (Nephron FA) thiothixene 2 mg capsule See Rx Instructions PO .COMPLEX 01/19/23 10/09/24 History bumetanide 2 mg tablet 2 mg PO DAILY 10/09/24 10/09/24 History dapagliflozin propanediol 10 mg 10 mg PO DAILY 10/09/24 10/09/24 History tablet (Farxiga) omeprazole 20 mg capsule,delayed 20 mg PO DAILY 10/09/24 10/09/24 History release trihexyphenidyl 5 mg tablet 5 mg PO TID 10/09/24 10/09/24 History Patient History Medical History Cellulitis Major depressive disorder with psychotic features Degenerative disc disease CKD (chronic kidney disease) Dyslipidemia Acute heart failure with preserved ejection fraction (HFpEF) Hypertension Mitral regurgitation and mitral stenosis Aortic regurgitation Aortic stenosis Social History Smoking Status: Former smoker Tobacco Type: Cigarettes Preferred Language: Greenlandic Visual Impairment: No Limitations Hearing Ability: Normal Engineering Documentation Specialist Required: No Beliefs That Will Affect Care: None Feels Safe at Home: Yes Review of Systems Review of Systems: All systems reviewed & are unremarkable except as noted in HPI & below Physical Exam Physical Exam: Constitutional: Patient appears to be of their stated age. Patient is in no apparent distress. Patient is well-developed. Eyes: Pupils are equal round and reactive to light. Conjunctivae are normal. Anicteric sclera. Ears nose, mouth and throat: Mallampati class 2. Normal posterior oropharynx. Uvula is midline. Nonrebreather in place. Neck: Trachea is midline. Visual inspection is normal. Respiratory: Mild bibasilar crackles. Tachypneic. Cardiovascular: Regular rate and rhythm. No murmurs. No edema. Gastrointestinal: Normal bowel sounds, soft, nontender and nondistended. No hepatosplenomegaly noted. Musculoskeletal: No cyanosis. Patient is able to move all extremities. Strength is 5 out of 5 in the upper and lower extremities. Skin: No rashes, warm dry and intact. Neurologic: No obvious focal neurological deficits seen. Psychiatric: Alert and oriented x3 with a euthymic affect. Results & Data Results & Data Vital Signs (Past 12 Hours) Vital Signs Temp Pulse Resp BP Pulse Ox O2 Del Method O2 Flow Rate 04/27/25 16:50 109/85 04/27/25 16:45 100/81 04/27/25 16:45 124 H 24 100/81 86 L Non-rebreather 04/27/25 16:40 120 H 04/27/25 16:39 119 H 24 84 L Non-rebreather 04/27/25 16:27 146 H 20 90 Non-rebreather 04/27/25 16:21 148 H 23 127/94 89 L Non-rebreather 04/27/25 16:18 169 H 25 H 99/81 L 87 L Non-rebreather 04/27/25 16:00 124/93 04/27/25 15:59 149 H 124/82 04/27/25 15:55 124/82 04/27/25 15:51 149 H 22 86 L Non-rebreather 15 04/27/25 15:50 104/85 04/27/25 15:50 Non-rebreather 15 04/27/25 15:50 Non-rebreather 15 04/27/25 15:45 138 H 23 113/83 89 L Non-rebreather 15 04/27/25 15:45 113/83 04/27/25 15:42 145 H 27 H 90 Non-rebreather 15 04/27/25 15:41 115/91 04/27/25 15:41 152 H 115/91 04/27/25 15:21 113/77 04/27/25 15:19 157 H 81 L Oxymask 6 04/27/25 15:10 147 H 112/68 04/27/25 15:04 145 H 04/27/25 15:00 158 H 26 H 89 L Non-rebreather 15 04/27/25 14:53 37.0 C 155 H 23 112/68 86 L Room Air Coding Level of Care Code 20498 CRITICAL CARE 1ST 30-74M Diagnoses Hypoxic respiratory failure J96.91 Acute heart failure with preserved ejection fraction (HFpEF) I50.31 Atrial fibrillation with rapid ventricular response I48.91 Severe aortic regurgitation I35.1 Aortic valve stenosis, etiology of cardiac valve disease unspecified I35.0 Cardiac valve disease etiology: etiology unspecified V tach I47.20 Mitral stenosis with insufficiency, unspecified etiology I05.2 Cardiac valve disease etiology: etiology unspecified (5) Aortic stenosis Cardiac valve disease etiology: etiology unspecified Qualified Code(s): I35.0 - Nonrheumatic aortic (valve) stenosis (7) Mitral regurgitation and mitral stenosis Cardiac valve disease etiology: etiology unspecified Qualified Code(s): 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
[2025-04-27] MEDS: MAGNESIUM SULFATE / D5W 1 GM/100 ML BAG IV SCH (17:22)
[2025-04-27] MEDS ORDERED: HEPARIN 25000 UNIT/500 ML D5W 25,000 UNITS/500 ML BAG IV SCH (17:45)
[2025-04-27 18:11] LABS: Thyroid Stimulating Hormone 0.958 uIu/ml (0.300-4.500)
[2025-04-27] MEDS: Heparin IV Adult Wt-Based Standard w/ INITIAL Bolus Protocol IV STA (18:45)
[2025-04-27] MEDS: HEPARIN 25000 UNIT/500 ML D5W 25,000 UNITS/500 ML BAG IV SCH (18:45)
[2025-04-27] MEDS: HEPARIN SOD (PORCINE) 1000 UNIT/ML IV ONE (18:45)
[2025-04-27 18:54] LABS: INR 1.1 (0.9-1.1); Partial Thromboplastin Time 31 Seconds (21-31); Prothrombin Time 11.5 Seconds (9.0-12.0)
[2025-04-27] MEDS ORDERED: SODIUM CHLOR 7% 4 ML NEB NEB SCH (19:00)
[2025-04-27] MEDS: TRIHEXYPHENIDYL HCL 5 MG TAB PO SCH (19:04)
[2025-04-27] MEDS ORDERED: DEXTROSE 50% 50 ML SYRINGE IV PRN (19:25)
[2025-04-27] MEDS ORDERED: GLUCAGON FOR INJ 1 MG VIAL SQ PRN (19:25)
[2025-04-27] MEDS ORDERED: GLUCOSE 10 TAB/TUBE PO PRN (19:25)
[2025-04-27] MEDS ORDERED: GLUCOSE 40% GEL 15 GM TUBE PO PRN (19:25)
[2025-04-27] MEDS ORDERED: CARBOHYDRATES FOR HYPOGLYCEMIA PO PRN (19:25)
[2025-04-27] MEDS: INSULIN ASPART PER UNIT CHARGE SC STA (20:14)
[2025-04-27] MEDS: CEFEPIME 2000MG 2,000 MG/20 ML SYR IV SCH (20:15)
[2025-04-27] MEDS: guaiFENesin 600 MG TABCR PO SCH (20:15)
[2025-04-27] MEDS: THIOTHIXENE 5 MG CAP PO SCH (21:14)
[2025-04-27] MEDS: THIOTHIXENE 1 MG CAP PO SCH (21:14)
[2025-04-27] MEDS: ONDANSETRON INJ 2 MG/ML 2 ML VIAL IV PRN (21:36)
[2025-04-27] MEDS: AMIODARONE / D5W 360 MG/200 ML BAG IV SCH (22:43)
[2025-04-27] MEDS: INSULIN ASPART PER UNIT CHARGE SC SCH (23:53)
[2025-04-28] MEDS: METOCLOPRAMIDE HCL INJ 5 MG/ML 2 ML VIAL IV PRN (01:20)
[2025-04-28 01:27] LABS: ANTI-Xa, UFH(UnfractionatedHep 1.27 IU/ml (0.3-0.7)
[2025-04-28 03:33] LABS: ANTI-Xa, UFH(UnfractionatedHep 0.80 IU/ml (0.3-0.7)
[2025-04-28 04:57] LABS: Hematocrit (blood only) 40.9 % (42.0-52.0); Hemoglobin 13.8 g/dl (14.0-18.0); Mean Corpuscular Hemoglobin 30.8 pg (25.0-34.0); Mean Corpuscular Volume 91.3 fL (80.0-100.0); Platelet Count 160 K/uL (130-400); RDW Standard Deviation 45.5 fL (36.4-46.3); Red Blood Count 4.48 M/uL (4.70-6.10); White Blood Count 10.47 K/ul (4.8-10.8)
[2025-04-28 05:13] LABS: Alanine Aminotransferase 28.0 U/L (7-52); Albumin Globulin Ratio 1.1 (0.9-2); Albumin Level 3.6 gm/dl (3.4-5.0); Alkaline Phosphatase 53.0 U/L (34-104); Anion Gap 9.0 (3-11); Bilirubin,Total 0.8 mg/dl (0.2-1.0); Blood Urea Nitrogen 23.0 mg/dl (6-23); Calcium 9.2 mg/dl (8.6-10.3); Carbon Dioxide 27.0 mmol/L (21-32); Chloride 100.0 mmol/L (98-107); Creatinine Clr Calc Pharmacy 41.5 ml/min; Globulin 3.2 gm/dl (2.5-4.0); Glucose 153.0 mg/dl (70-99(Fasting)); Magnesium 2.5 mg/dl (1.7-2.4); Potassium 4.3 mmol/L (3.5-5.1); Sodium 136.0 mmol/L (136-145); Total Protein 6.8 gm/dl (6.0-8.3)
[2025-04-28 05:22] LABS: ANTI-Xa, UFH(UnfractionatedHep 0.30 IU/ml (0.3-0.7)
--- NOTE | 2025-04-28 06:24 | Electrocardiogram Report ---
Test Reason : Blood Pressure : */* mmHG Vent. Rate : 151 BPM Atrial Rate : * BPM P-R Int : * ms QRS Dur : 88 ms QT Int : 254 ms P-R-T Axes : * -6 171 degrees QTcB Int : 402 ms Atrial fibrillation with rapid ventricular response Minimal voltage criteria for LVH, may be normal variant ( Jovanni product ) Inferior infarct Abnormal ECG When compared with ECG of 20-Nov-2022 13:15, Atrial fibrillation has replaced Sinus rhythm ST now depressed in Lateral leads Inferior infarct is now Present Vent. rate has increased by 90 bpm Confirmed by Nate Craft ([id number]) on 04/28/2025 6:23:42 AM Referred By: Confirmed By: Nate Craft
[2025-04-28] MEDS: NEPHROCAPS PO SCH (08:21)
[2025-04-28] MEDS: ROSUVASTATIN CALCIUM 5 MG TAB PO SCH (08:22)
[2025-04-28] MEDS: ASPIRIN 81 MG ECTAB PO SCH (08:23)
[2025-04-28] MEDS ORDERED: ATENOLOL 50 MG TABLET PO SCH (09:00)
--- NOTE | 2025-04-28 09:57 | Critical Care Progress Note ---
Date of Service April 28, 2025 Assessment & Plan (1) Hypoxic respiratory failure: Plan: Wean oxygen as able. BiPAP as needed and high flow. Acute hypoxic respite failure likely secondary to pulmonary edema plus or minus viral pneumonia component given COVID-19. Patient empirically being treated for community- acquired pneumonia as well by hospitalist service. Will add back atypical coverage. Airborne precautions. Follow urine Legionella antigen. ESR moderately elevated and CRP minimally elevated. Will add hydrocortisone 50 mg every 6 hours. Will also add remdesivir for viral COVID-19 pneumonia. Follow-up chest x-ray today. Continue pantoprazole while on steroids and heparin infusion. (2) Acute heart failure with preserved ejection fraction (HFpEF): Plan: Patient received 40 mg of IV Lasix in the ER. Monitoring urine output and respiratory status closely. Consider additional Lasix as needed. (3) Atrial fibrillation with rapid ventricular response: Plan: Continue amiodarone infusion. Start metoprolol 12.5 mg twice daily. Awaiting cardiology evaluation. (4) Severe aortic regurgitation: Plan: Patient severely preload dependent given significant valvular issues. Patient received diuretics in the ER. If vasopressor support is required, would favor phenylephrine in light of the patient's atrial fibrillation and ventricular tachycardia. (5) Aortic stenosis: Plan: See above comments regarding preload dependence. (6) V tach: Plan: Amiodarone as above. Monitor telemetry closely. TSH unremarkable. Maintain magnesium above 2 and potassium above 4. (7) Mitral regurgitation and mitral stenosis: (8) Demand ischemia: Plan: Troponin severely elevated. Awaiting cardiology input. Continue heparin. (9) Transaminitis: Plan: AST elevated. Will need to monitor this closely and repeat labs later today. If AST continues to climb, will need to discontinue amiodarone. Plan CRITICAL CARE TIME I have personally spent 45 minutes of critical care time in the direct management of this patient. This is a life/limb threatening event. This includes time spent evaluating patient, direct bedside care, chart review, placing orders, interpretation of diagnostic studies, discussion with consultants, patient, and family members, as well as other required patient management activities. This time is exclusive of all separately billable procedures, and teaching time and separate from and in addition to any other critical care service time. I personally spent 45 minutes on the date of service in activities related to this patient's encounter, including 30 minutes of counseling with patient regarding treatment plan and 15 minutes of clinical review of lab results and documentation. I did director of group counseling program the patient regarding their diagnosis and treatment plan and they expressed understanding. This note was dictated using voice recognition software and may include grammatical errors, extra words, word substitutions and other inaccuracies due to errors in the voice recognition software and differences in speech patterns. Admission and Anticipated Discharge Date Admission Date: April 27, 2025 Subjective Overnight patient had some nausea with BiPAP and he remains on high flow currently. Patient with A-fib RVR at times. Denies chest pain. Troponin elevated today and remains on a heparin drip. Review of Systems Review of Systems: All systems reviewed & are unremarkable except as noted in HPI & below Physical Exam Physical Exam: Constitutional: Patient appears to be of their stated age. Patient is in no apparent distress. Patient is well-developed. Eyes: Pupils are equal round and reactive to light. Conjunctivae are normal. Anicteric sclera. Ears nose, mouth and throat: Mallampati class 2. Normal posterior oropharynx. Uvula is midline. Nonrebreather in place. Neck: Trachea is midline. Visual inspection is normal. Respiratory: Mild bibasilar crackles. Tachypneic. Cardiovascular: Regular rate and rhythm. No murmurs. No edema. Gastrointestinal: Normal bowel sounds, soft, nontender and nondistended. No hepatosplenomegaly noted. Musculoskeletal: No cyanosis. Patient is able to move all extremities. Strength is 5 out of 5 in the upper and lower extremities. Skin: No rashes, warm dry and intact. Neurologic: No obvious focal neurological deficits seen. Psychiatric: Alert and oriented x3 with a euthymic affect. Results & Data Results & Data Vital Signs (Past 12 Hours) Vital Signs Temp Pulse Pulse Resp BP Pulse Ox O2 Del Method 04/28/25 08:42 High Flow Nasal Cannula 04/28/25 08:39 37.1 C 115 H 18 98 04/28/25 08:03 37.2 C 99 H 14 97 High Flow Nasal Cannula 04/28/25 07:50 106/74 04/28/25 07:48 37.2 C 95 H 12 96 04/28/25 07:30 37.1 C 118 H 16 96 04/28/25 07:19 124 H 18 94 High Flow Nasal Cannula 04/28/25 07:16 105 H 04/28/25 07:00 36.9 C 93 H 18 112/68 97 04/28/25 06:06 37.1 C 103 H 19 113/67 99 High Flow Nasal Cannula 04/28/25 05:12 37.2 C 102 H 16 97/71 L 98 High Flow Nasal Cannula 04/28/25 04:42 37.2 C 108 H 19 100/78 96 High Flow Nasal Cannula 04/28/25 04:12 37.2 C 111 H 18 95/78 L 95 High Flow Nasal Cannula 04/28/25 03:42 37.3 C 103 H 14 104/67 97 High Flow Nasal Cannula 04/28/25 03:15 37.2 C 97 H 12 101/70 97 High Flow Nasal Cannula 04/28/25 02:56 116 H 20 94 High Flow Nasal Cannula 04/28/25 02:42 37.1 C 110 H 15 111/89 95 High Flow Nasal Cannula 04/28/25 01:30 37.0 C 124 H 17 102/88 93 CPAP 04/28/25 01:20 115 H 19 94 High Flow Nasal Cannula 04/28/25 00:43 37.0 C 114 H 21 113/91 96 CPAP 04/28/25 00:12 37.0 C 118 H 22 101/80 96 CPAP 04/27/25 23:57 121 H 04/27/25 23:47 124 H 23 98 04/27/25 23:42 37.4 C 113 H 19 109/84 97 CPAP 04/27/25 23:38 126 H 04/27/25 23:30 37.4 C 126 H 22 99/84 L 98 CPAP 04/27/25 22:43 37.5 C 102 H 20 97/75 L 97 CPAP 04/27/25 22:12 37.5 C 104 H 23 106/89 97 CPAP O2 Flow Rate FiO2 04/28/25 08:42 40 80 04/28/25 08:39 04/28/25 08:03 40 80 04/28/25 07:50 04/28/25 07:48 04/28/25 07:30 04/28/25 07:19 40 80 04/28/25 07:16 04/28/25 07:00 04/28/25 06:06 40 80 04/28/25 05:12 40 80 04/28/25 04:42 40 60 04/28/25 04:12 40 60 04/28/25 03:42 40 60 04/28/25 03:15 40 80 04/28/25 02:56 40 80 04/28/25 02:42 40 80 04/28/25 01:30 60 04/28/25 01:20 40 80 04/28/25 00:43 60 04/28/25 00:12 60 04/27/25 23:57 04/27/25 23:47 60 04/27/25 23:42 60 04/27/25 23:38 04/27/25 23:30 80 04/27/25 22:43 80 04/27/25 22:12 80 Coding Level of Care Code 05485 CRITICAL CARE 1ST 30-74M Diagnoses Hypoxic respiratory failure J96.91 Acute heart failure with preserved ejection fraction (HFpEF) I50.31 Atrial fibrillation with rapid ventricular response I48.91 Severe aortic regurgitation I35.1 Aortic valve stenosis, etiology of cardiac valve disease unspecified I35.0 Cardiac valve disease etiology: etiology unspecified V tach I47.20 Mitral stenosis with insufficiency, unspecified etiology I05.2 Cardiac valve disease etiology: etiology unspecified Demand ischemia I24.89 Transaminitis R74.01 (5) Aortic stenosis Cardiac valve disease etiology: etiology unspecified Qualified Code(s): I35.0 - Nonrheumatic aortic (valve) stenosis (7) Mitral regurgitation and mitral stenosis Cardiac valve disease etiology: etiology unspecified Qualified Code(s): 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
--- NOTE | 2025-04-28 10:22 | XRay Report ---
Technique: A frontal view of the chest was obtained Findings: There suspected mild pulmonary edema. There is more focal right lower lobe opacity. The heart is mildly enlarged. No pleural effusion or pneumothorax is seen. There is biapical pleural thickening No fracture is noted. No foreign body is seen Impression: 1. Mild cardiomegaly and mild pulmonary edema 2. Possible concurrent right lower lobe pneumonia ACT 112: Positive. There are findings on this exam that require communication between the performing entity and the patient following Patient Test Result Information Act ([place] ACT 112) guidelines. Electronically signed by Tyler Perez 04-28-2025 10:22 AM
--- NOTE | 2025-04-28 10:53 | Cardiology Consultation ---
Date of Consultation April 28, 2025 Assessment & Plan (1) (HFpEF) heart failure with preserved ejection fraction: (2) Atrial fibrillation with rapid ventricular response: (3) Elevated troponin: (4) Cardiomyopathy: (5) Valvular heart disease: Plan 1. Congestive heart failure: Although I am not sure of the severity of his pulmonary edema it does seem that he has significant congestive heart failure. This is probably multifactorial, the acute presentation is most likely due to development of rapid atrial fibrillation and his markedly elevated troponin may indicate myocardial injury rather than just demand ischemia. He is prone to congestive heart failure given his longstanding severe aortic insufficiency and mitral regurgitation resulting in a marked left ventricular volume overload. 2. Atrial fibrillation: He presented in atrial fibrillation with a rapid heart rate, this remains and it may be a little hard to control his heart rate due to his relatively low blood pressure. I would agree with weaning him off of amiodarone, which I do not like to use for rate control alone, and I would agree to going up on beta-blockade. Slowing his heart rate may actually help with blood pressure. We can also give him digoxin (which I will order) to help with heart rate without affecting his blood pressure. I will just give him a loading dose for now. 3. Elevated troponin: His elevated troponin is worrisome, it is possible it is due to demand ischemia but it is concerning with the rapid rise after presentation. There does appear to be inferior ST elevation especially seen in lead III but there may also be Q waves in aVF and he has lateral ST depression which is a new finding. This should be investigated and we will tentatively plan catheterization on Wednesday. There is no indication to do it urgently today. 4. Cardiomyopathy: He has a severe cardiomyopathy which is evidently new over the last year, I do not think it is all acute but I suspect has been there for at least some time although I am not sure of the timeframe. It may be due to his valvular heart disease, although I am also concerned about ischemia. He will need a heart catheterization, I would target Wednesday. 5. Valvular heart disease: I am not sure he has had catheterization but he has a history of severe valvular heart disease including aortic and mitral regurgitation. We will probably need to assess his valves at catheterization. I do not know if he will be a candidate for surgery but there is no good medical treatment for this. History of Present Illness Reason for Consultation: CHF, elevated troponin Attending Physician: David Koch DO History of Present Illness This is a 80-year-old incarcerated male with hypertension, hyperlipidemia, valvular heart disease and heart failure. We have seen him intermittently, most recently in September of this year. At that time he seemed to be doing well with his heart failure and valvular heart disease. By echocardiography February 07, 2024 (elsewhere) he was reported to have severe left ventricular dilatation with an ejection fraction of 70% (which is unusual wall combination presumably due to his AI and MR increasing his stroke-volume) as well as severe left ventricular filling pressure and moderate left atrial dilatation. Additionally he had a calcified aortic valve with moderate aortic stenosis and severe aortic regurgitation. He also had severe mitral regurgitation. He did however appear to have normal right atrial pressures. That is the last echocardiogram that I see in his records. He presented to the emergency room on April 27, 2025 with shortness of breath and hypoxic respiratory failure and was noted to be in atrial fibrillation with rapid ventricular response. From his chart I do not see a prior history of atrial fibrillation. His presenting electrocardiogram showed atrial fibrillation with a heart rate of 150 bpm with left ventricular hypertrophy. ST elevation is present in leads III and Q wave seem to be present in aVF, which are new. Here he was started on amiodarone and antibiotics for possible pneumonia. He was diuresed and seems to be improving. Laboratory studies here are notable for moderate creatinine elevation (1.68 today) and a markedly elevated troponin. On presentation his troponin was 177, that increased to 523 several hours later and up to 62,000 10 hours after presentation. That has remained at about 67,000 this morning. His echocardiogram shows severe left ventricular dysfunction with a marked reduction in his ejection fraction. Due to his COVID diagnosis I did not interview or examine the patient. Allergies Allergy/AdvReac Type Severity Reaction Status Date / Time No Known Drug Allergies Allergy Unknown Unverified 10/09/24 13:44 Home Medications Medication Instructions Recorded Confirmed Type amlodipine 10 mg tablet 10 mg PO DAILY 11/20/22 10/09/24 History aspirin 81 mg tablet,delayed 81 mg PO DAILY 11/20/22 10/09/24 History release (Adult Low Dose Aspirin) atenolol 50 mg tablet 50 mg PO DAILY 11/20/22 10/09/24 History lisinopril 40 mg tablet 40 mg PO DAILY 11/20/22 10/09/24 History rosuvastatin 5 mg tablet 5 mg PO DAILY 11/20/22 10/09/24 History vit B complex and vit C 1 tab PO DAILY 11/20/22 10/09/24 History no.24-ferrous fum 66 mg-folic 1,000 mcg tablet (Nephron FA) thiothixene 2 mg capsule See Rx Instructions PO .COMPLEX 01/19/23 10/09/24 History bumetanide 2 mg tablet 2 mg PO DAILY 10/09/24 10/09/24 History dapagliflozin propanediol 10 mg 10 mg PO DAILY 10/09/24 10/09/24 History tablet (Farxiga) omeprazole 20 mg capsule,delayed 20 mg PO DAILY 10/09/24 10/09/24 History release trihexyphenidyl 5 mg tablet 5 mg PO TID 10/09/24 10/09/24 History Patient History Medical History Cellulitis Major depressive disorder with psychotic features Degenerative disc disease Social History Smoking Status: Unknown if ever smoked Tobacco Type: Cigarettes Hx Alcohol Use: No Hx Substance Use: No Preferred Language: Croatian Communication Ability: Effective Visual Impairment: No Limitations Hearing Ability: Normal Manager Public Required: No Beliefs That Will Affect Care: None Current Living Situation: Other Current Living Situation Comment: [facility] [place] Feels Safe at Home: Yes Physical Exam Physical Exam: Due to his COVID diagnosis I did not examine the patient which has been done already today. Results & Data Vital Signs (Past 12 Hours) Vital Signs Temp Pulse Pulse Resp BP Pulse Ox O2 Del Method 04/28/25 08:42 High Flow Nasal Cannula 04/28/25 08:39 37.1 C 115 H 18 98 04/28/25 08:03 37.2 C 99 H 14 97 High Flow Nasal Cannula 04/28/25 07:50 106/74 04/28/25 07:48 37.2 C 95 H 12 96 04/28/25 07:30 37.1 C 118 H 16 96 04/28/25 07:19 124 H 18 94 High Flow Nasal Cannula 04/28/25 07:16 105 H 04/28/25 07:00 36.9 C 93 H 18 112/68 97 04/28/25 06:06 37.1 C 103 H 19 113/67 99 High Flow Nasal Cannula 04/28/25 05:12 37.2 C 102 H 16 97/71 L 98 High Flow Nasal Cannula 04/28/25 04:42 37.2 C 108 H 19 100/78 96 High Flow Nasal Cannula 04/28/25 04:12 37.2 C 111 H 18 95/78 L 95 High Flow Nasal Cannula 04/28/25 03:42 37.3 C 103 H 14 104/67 97 High Flow Nasal Cannula 04/28/25 03:15 37.2 C 97 H 12 101/70 97 High Flow Nasal Cannula 04/28/25 02:56 116 H 20 94 High Flow Nasal Cannula 04/28/25 02:42 37.1 C 110 H 15 111/89 95 High Flow Nasal Cannula 04/28/25 01:30 37.0 C 124 H 17 102/88 93 CPAP 04/28/25 01:20 115 H 19 94 High Flow Nasal Cannula 04/28/25 00:43 37.0 C 114 H 21 113/91 96 CPAP 04/28/25 00:12 37.0 C 118 H 22 101/80 96 CPAP 04/27/25 23:57 121 H 04/27/25 23:47 124 H 23 98 04/27/25 23:42 37.4 C 113 H 19 109/84 97 CPAP 04/27/25 23:38 126 H 04/27/25 23:30 37.4 C 126 H 22 99/84 L 98 CPAP O2 Flow Rate FiO2 04/28/25 08:42 40 80 04/28/25 08:39 04/28/25 08:03 40 80 04/28/25 07:50 04/28/25 07:48 04/28/25 07:30 04/28/25 07:19 40 80 04/28/25 07:16 04/28/25 07:00 04/28/25 06:06 40 80 04/28/25 05:12 40 80 04/28/25 04:42 40 60 04/28/25 04:12 40 60 04/28/25 03:42 40 60 04/28/25 03:15 40 80 04/28/25 02:56 40 80 04/28/25 02:42 40 80 04/28/25 01:30 60 09/13/25 01:20 40 80 04/28/25 00:43 60 04/28/25 00:12 60 04/27/25 23:57 04/27/25 23:47 60 04/27/25 23:42 60 04/27/25 23:38 04/27/25 23:30 80 Laboratory Results Cardiac Enzymes 04/27/25 04/27/25 04/28/25 Range/Units 15:03 16:45 01:21 AST 26 (13-39) U/L Troponin I High Sens 177.4 H* 523.2 H* D 14394.9 H* D (0-20) pg/ml B-Natriuretic Peptide 728 H (0-100) pg/ml 04/28/25 Range/Units 04:34 AST 237 H (13-39) U/L Troponin I High Sens 13634.1 H* (0-20) pg/ml B-Natriuretic Peptide (0-100) pg/ml Coagulation 04/27/25 Range/Units 15:03 PT 11.5 (9.0-12.0) Seconds APTT 31 (21-31) Seconds B-Natriuretic Peptide 728 H (0-100) pg/ml CBC 04/27/25 04/28/25 Range/Units 15:03 04:34 WBC 7.85 10.47 (4.8-10.8) K/ul RBC 4.65 L 4.48 L (4.70-6.10) M/uL Hgb 14.4 13.8 L (14.0-18.0) g/dl Hct 43.6 40.9 L (42.0-52.0) % Plt Count 141 160 (130-400) K/uL Neut # (Auto) 5.84 (1.40-6.50) K/uL Lymph # (Auto) 0.70 L (1.20-3.40) K/uL [place] # (Auto) 1.25 H (0.11-0.59) K/uL Eos # (Auto) 0.01 (0.00-0.50) K/uL Baso # (Auto) 0.02 (0.00-0.20) K/uL Comprehensive Metabolic Panel 04/27/25 04/28/25 Range/Units 15:03 04:34 Sodium 136 136 (136-145) mmol/L Potassium 4.2 4.3 (3.5-5.1) mmol/L Chloride 100 100 (98-107) mmol/L Carbon Dioxide 25 27 (21-32) mmol/L BUN 15 23 (6-23) mg/dl Creatinine 1.43 H 1.68 H (0.6-1.4) mg/dl Glucose 155 H 153 H (70-99(Fasting)) mg/dl Calcium 9.3 9.2 (8.6-10.3) mg/dl AST 26 237 H (13-39) U/L ALT 13 28 (7-52) U/L Alkaline Phosphatase 57 53 (34-104) U/L Total Protein 7.4 6.8 (6.0-8.3) gm/dl Albumin 4.2 3.6 (3.4-5.0) gm/dl Intake and Output 04/27/25 04/28/25 04/28/25 22:59 06:59 14:59 Intake Total 650.000 / 875.500 225.5 / 875.500 271.230 / 271.230 Output Total 125 / 450 325 / 450 125 / 125 Balance 525.000 / 425.500 -99.5 / 425.500 146.230 / 146.230 Intake: IV 650.000 / 875.500 225.5 / 875.500 221.230 / 221.230 Amiodarone / D5w 150 mg In 100 100 / 100 ml @ 600 mls/hr IV NOW STA Rx#: [id number] Amiodarone / D5w 360 mg In 200 200.000 / 200.000 182.030 / 182.030 ml @ 0.5 MG/MIN 16.667 mls/hr IV .Q12H PB Rx#:[id number] Doxycycline Hyclate 100 mg In 100 / 100 Dextrose 5% Mini-B 100 ml @ 50 mls/hr IV NOW STA Rx#:[id number] Heparin 17943 Unit/500 ml D5w 225.5 / 225.5 39.2 / 39.2 25,000 units In 500 ml @ 1,200 UNITS/HR 24 mls/hr IV .[id number] PB Rx#:[id number] Magnesium Sulfate / D5w 1 gm In 200 / 200 100 ml @ 200 mls/hr IV Q30M [facility] Rx#:[id number] cefTRIAXone SODIUM 2,000 mg In 50 / 50 50 ml @ 100 mls/hr IV NOW STA Rx#:[id number] Oral 50 / 50 Output: Urine Amount (Catheter) 125 / 450 325 / 450 125 / 125 Temp Sensing Landa 125 / 450 325 / 450 125 / 125 # Bowel Movements 0 / 0 Other: Other Intake Source NPO NPO sips with meds Weight 98.5 kg 95.8 kg Weight Measurement Method [facility] Diagnostic Findings Telemetry: Atrial fibrillation, rate quite variable but seems to be trending down. PG Care Time/CCT Total # of Minutes Spent Total Time Spent with Patient: Total time spent is greater than 50% in coordination of care (as documented) at patient's floor/unit and/or counseling patient: Coding Level of Care Code 24251 INT INP/OBS CARE 3/75MIN Diagnoses Chronic heart failure with preserved ejection fraction I50.32 Heart failure chronicity: chronic Atrial fibrillation with rapid ventricular response I48.91 Elevated troponin R79.89 Cardiomyopathy I42.9 Valvular heart disease I38 (1) (HFpEF) heart failure with preserved ejection fraction Heart failure chronicity: chronic Qualified Code(s): I50.32 - Chronic diastolic (congestive) heart failure
[2025-04-28] MEDS: HYDROCORTISONE SOD 50 MG in SYRINGE 0 ML IV SCH (11:04)
[2025-04-28] MEDS: REMDESIVIR 200 mg: Day 1 IV ONE (11:04)
[2025-04-28] MEDS: FUROSEMIDE 40 MG/4 ML VIAL IV ONE (11:04)
[2025-04-28] MEDS: AZITHROMYCIN 500 MG/255 ML BAG IV SCH (11:04)
[2025-04-28] MEDS: METOPROLOL TARTRATE 25 MG TAB PO SCH (11:05)
[2025-04-28 11:43] LABS: Alanine Aminotransferase 29.0 U/L (7-52); Albumin Globulin Ratio 1.2 (0.9-2); Albumin Level 3.5 gm/dl (3.4-5.0); Alkaline Phosphatase 50.0 U/L (34-104); Anion Gap 7.0 (3-11); Bilirubin,Total 0.8 mg/dl (0.2-1.0); Blood Urea Nitrogen 25.0 mg/dl (6-23); Calcium 9.2 mg/dl (8.6-10.3); Carbon Dioxide 28.0 mmol/L (21-32); Chloride 100.0 mmol/L (98-107); Creatinine Clr Calc Pharmacy 40.3 ml/min; Globulin 3.0 gm/dl (2.5-4.0); Glucose 134.0 mg/dl (70-99(Fasting)); Potassium 4.0 mmol/L (3.5-5.1); Sodium 135.0 mmol/L (136-145); Total Protein 6.5 gm/dl (6.0-8.3)
[2025-04-28 11:59] LABS: ANTI-Xa, UFH(UnfractionatedHep 0.43 IU/ml (0.3-0.7)
--- NOTE | 2025-04-28 13:18 | XCELERA ---
[id number]
--- NOTE | 2025-04-28 13:39 | Hospitalist Progress Note ---
Date of Service April 28, 2025 Assessment & Plan (1) A-fib: Plan: Mr.william maria is a 80 yo male, fdc; with PMH of CAD, CHFpEF, aortic stenosis, mitral stenosis, CKD, depression with psychosis, hypertension he been having coughing, shortness of breath for 3-4 days, also been having left side chest pain radiate into the forearm. on wednesday, 04/27, presented from [facility] to our hospital with shortness of breath, found to has hypoxic respiratory failure on 15 liter, A-fib with RVR,CTA found pneumonia versus volume overload. covid positve he's was started on amiodarone infusion, ceftriaxone, doxycycline and started on lasix. he will be in medicine services for A-fib/V-tach, and acute respiratory failure. pneumonia 1. acute A-fib/Vtach 2. acute hypoxic respiratory failure 3. pneumonia 4. covid infection. 5. aortic stenosis 6. CHF with preserved EF 7. CKD 8. hypertension 9. PMh of CAD 10. hx of overactive bladder 1. acute A-fib, V-tach amiodarone infusion, heparin repeat echo, no worsening chest pain on aspirin, statin 2. chest pain episode, cycyle troponin, aspirin, heparin ACS dose. statin chest pain resolved since yesterday 3. pna. cefepime, doxycycyline, mucinex. ?? viral versus bacteria started on remdemsivir by pulmonary 4. covid infection, decadron, restarted on remdemsivir he's on mucinex. 5. acute respiratory failure he on 40 liter oxygen albuterol, mucinex. decadron 6. aortic stenosis, avoid nitrate severe mitral regurgitation echo done in 2024, show moderate 7. CHF, he's normally take atenolol 50mg and bumex 2mg daily lisinopril 40mg at home 8. GERD, he's on omeprazole 20mg at home 9. he's on thiothixene 2mg (4 caps) BID 8mg BID 10. 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; started him on remdemsivir for covid infection meanwhile, he's on decadron heparin drip for A-fib noted he has aortic stenosis Review of Systems Review of Systems: Constitutional: No Weight Change, No Fever, No Chills, No Night Sweats, No Fatigue, No Malaise Cardiovascular: No Chest Pain, No SOB, No PND, No Dyspnea on Exertion, No Orthopnea, No Claudication, No Edema, No Palpitations Respiratory: No Cough, No Sputum, No Wheezing, No Smoke Exposure, No Dyspnea Gastrointestinal: No Nausea, No Vomiting, No Diarrhea, No Constipation, No Pain, No Heartburn, No Anorexia, No Dysphagia, No Hematochezia, No Melena, No Flatulence, No Jaundice Musculoskeletal: No Arthralgias, No Myalgias, No Joint Swelling, No Joint Stiffness, No Back Pain, No Neck Pain, No Injury History Neuro: no dizziness;no headache; no confusion Psych: No Anxiety/Panic, No Depression, No Insomnia, No Personality Changes, No Delusions, No Rumination, No SI/HI/AH/VH, No Social Issues, No Memory Changes, No Violence/Abuse Hx., No Eating Concerns Physical Exam Physical Exam: VITALS: Reviewed. WEIGHT/BMI reviewed. GEN: Healthy appearing, well-developed, NAD. -Head: NC/AT; -Eyes: PERRL, EOMI. No discharge or redn ess; -Ears: External ears are normal. Normal TMs. CV: RRR, no m/r/g. LUNGS: CTAB, no w/r/c. on 40 liter oxygen ABD: Soft, NT/ND, NBS, no masses or organomegaly. : N/A SKIN: Warm, well perfused. No skin rashes or abnormal lesions. MSK: No deformities, Normal gait. EXT: No clubbing, cyanosis, or edema. NEURO: Ambulating with no limitations. Normal muscle strength and tone. No focal deficits. Results & Data Results & Data Vital Signs (Past 12 Hours) Vital Signs Temp Pulse Pulse Resp BP Pulse Ox O2 Del Method 04/28/25 13:35 136 H 18 97 High Flow Nasal Cannula 04/28/25 12:50 99/61 L 04/28/25 12:48 37.3 C 100 H 18 97 04/28/25 12:37 89/71 L 04/28/25 12:36 37.3 C 98 H 16 97 04/28/25 11:50 87/60 L 04/28/25 11:45 37.2 C 103 H 16 96 04/28/25 11:33 37.2 C 95 H 14 96 04/28/25 11:00 37.3 C 116 H 15 96 04/28/25 10:50 103/78 04/28/25 10:42 37.2 C 113 H 13 96 04/28/25 10:39 37.2 C 94 H 15 97 04/28/25 10:00 37.1 C 111 H 15 98 04/28/25 09:50 97/59 L 04/28/25 09:42 37.1 C 119 H 20 98 04/28/25 09:30 37.1 C 105 H 16 97 04/28/25 09:15 37.1 C 117 H 14 98 04/28/25 09:10 98/81 L 04/28/25 08:54 37.0 C 127 H 14 97 04/28/25 08:42 High Flow Nasal Cannula 04/28/25 08:39 37.1 C 115 H 18 98 04/28/25 08:03 37.2 C 99 H 14 97 High Flow Nasal Cannula 04/28/25 07:50 106/74 04/28/25 07:48 37.2 C 95 H 12 96 04/28/25 07:30 37.1 C 118 H 16 96 04/28/25 07:19 124 H 18 94 High Flow Nasal Cannula 04/28/25 07:16 105 H 04/28/25 07:00 36.9 C 93 H 18 112/68 97 04/28/25 06:06 37.1 C 103 H 19 113/67 99 High Flow Nasal Cannula 04/28/25 05:12 37.2 C 102 H 16 97/71 L 98 High Flow Nasal Cannula 04/28/25 04:42 37.2 C 108 H 19 100/78 96 High Flow Nasal Cannula 04/28/25 04:12 37.2 C 111 H 18 95/78 L 95 High Flow Nasal Cannula 04/28/25 03:42 37.3 C 103 H 14 104/67 97 High Flow Nasal Cannula 04/28/25 03:15 37.2 C 97 H 12 101/70 97 High Flow Nasal Cannula 04/28/25 02:56 116 H 20 94 High Flow Nasal Cannula 04/28/25 02:42 37.1 C 110 H 15 111/89 95 High Flow Nasal Cannula O2 Flow Rate FiO2 04/28/25 13:35 40 80 04/28/25 12:50 04/28/25 12:48 04/28/25 12:37 04/28/25 12:36 04/28/25 11:50 04/28/25 11:45 04/28/25 11:33 04/28/25 11:00 04/28/25 10:50 04/28/25 10:42 04/28/25 10:39 04/28/25 10:00 04/28/25 09:50 04/28/25 09:42 04/28/25 09:30 04/28/25 09:15 04/28/25 09:10 04/28/25 08:54 04/28/25 08:42 40 80 04/28/25 08:39 04/28/25 08:03 40 80 04/28/25 07:50 04/28/25 07:48 04/28/25 07:30 04/28/25 07:19 40 80 04/28/25 07:16 04/28/25 07:00 04/28/25 06:06 40 80 04/28/25 05:12 40 80 04/28/25 04:42 40 60 04/28/25 04:12 40 60 04/28/25 03:42 40 60 04/28/25 03:15 40 80 04/28/25 02:56 40 80 04/28/25 02:42 40 80 PG Care Time/CCT Total # of Minutes Spent Total Time Spent with Patient: Total time spent is greater than 50% in coordination of care (as documented) at patient's floor/unit and/or counseling patient: Coding Level of Care Code 21911 SUB INP/OBS CARE 09/09MIN Diagnoses A-fib I48.91 V tach I47.20 COVID U07.1 Hypoxic respiratory failure J96.91 Pneumonia J18.9 Time Spent (min) 25
[2025-04-28] MEDS: DIGOXIN 250 MCG in SYRINGE 9 ML IV STA (14:31)
[2025-04-28] MEDS: DIGOXIN 250 MCG in SYRINGE 9 ML IV ONE (16:22)
[2025-04-29 04:59] LABS: Hematocrit (blood only) 38.6 % (42.0-52.0); Hemoglobin 13.3 g/dl (14.0-18.0); Mean Corpuscular Hemoglobin 31.9 pg (25.0-34.0); Mean Corpuscular Volume 92.6 fL (80.0-100.0); Platelet Count 137 K/uL (130-400); RDW Standard Deviation 47.0 fL (36.4-46.3); Red Blood Count 4.17 M/uL (4.70-6.10); White Blood Count 7.99 K/ul (4.8-10.8)
[2025-04-29 05:12] LABS: Alanine Aminotransferase 24.0 U/L (7-52); Albumin Globulin Ratio 1.2 (0.9-2); Albumin Level 3.3 gm/dl (3.4-5.0); Alkaline Phosphatase 46.0 U/L (34-104); Anion Gap 8.0 (3-11); Bilirubin,Total 1.0 mg/dl (0.2-1.0); Blood Urea Nitrogen 29.0 mg/dl (6-23); Calcium 8.7 mg/dl (8.6-10.3); Carbon Dioxide 28.0 mmol/L (21-32); Chloride 100.0 mmol/L (98-107); Creatinine Clr Calc Pharmacy 43.8 ml/min; Globulin 2.8 gm/dl (2.5-4.0); Glucose 129.0 mg/dl (70-99(Fasting)); Magnesium 2.4 mg/dl (1.7-2.4); Potassium 4.1 mmol/L (3.5-5.1); Sodium 136.0 mmol/L (136-145); Total Protein 6.1 gm/dl (6.0-8.3)
[2025-04-29 05:24] LABS: ANTI-Xa, UFH(UnfractionatedHep 0.51 IU/ml (0.3-0.7)
[2025-04-29] MEDS ORDERED: Nursing to Pharmacy Communication SCH (09:45)
--- NOTE | 2025-04-29 10:09 | Cardiology Progress Note ---
Date of Service April 29, 2025 Assessment & Plan (1) (HFpEF) heart failure with preserved ejection fraction: (2) Atrial fibrillation with rapid ventricular response: (3) Elevated troponin: (4) Cardiomyopathy: (5) Valvular heart disease: Plan 1. Congestive heart failure: Although I am not sure of the severity of his pulmonary edema it does seem that he has significant congestive heart failure. This is probably multifactorial, the acute presentation is most likely due to development of rapid atrial fibrillation and his markedly elevated troponin may indicate myocardial injury rather than just demand ischemia. He is prone to congestive heart failure given his longstanding severe aortic insufficiency and mitral regurgitation resulting in a marked left ventricular volume overload. I do not know if his cardiomyopathy is recent, the last data I have did not show left ventricular dysfunction. 2. Atrial fibrillation: He presented in atrial fibrillation with a rapid heart rate, atrial fibrillation remains and his heart rate has come under reasonable control. I am going to go up on beta-blockade slightly. His blood pressure has been good. I am going to check a digoxin level before adding a daily dose. 3. Elevated troponin: His elevated troponin is worrisome, it is possible it is due to demand ischemia but it is concerning with the rapid rise after presentation. The high-sensitivity troponin peaked at 66,785 and has decreased since suggesting that the event is not ongoing. This would be consistent with a coronary event rather than demand ischemia.There did appear to be transient inferior ST elevation especially seen in lead III on initial electrocardiography but there may also be Q waves in aVF and he has lateral ST depression which is a new finding. This should be investigated and we will tentatively plan catheterization on Wednesday. His creatinine had bumped slightly but is down today so that should be safe. There is no indication to do it urgently today. 4. Cardiomyopathy: He has a severe cardiomyopathy which is evidently new over the last year, I do not think it is all acute but I suspect has been there for at least some time although I am not sure of the timeframe. It may be due to his valvular heart disease, although I am also concerned about ischemia. He will need a heart catheterization, I would target Wednesday. 5. Valvular heart disease: I am not sure he has had catheterization but he has a history of severe valvular heart disease including aortic and mitral regurgitation. We will probably need to assess his valves at catheterization. I do not know if he will be a candidate for surgery but there is no good medical treatment for severe AI and Admission and Anticipated Discharge Date Admission Date: April 27, 2025 Subjective I did not interview him or examine him due to his COVID diagnosis. He appears to be comfortable in bed visually. Physical Exam Physical Exam: Due to his COVID diagnosis I did not examine the patient which has been done already today. Results & Data Vital Signs (Past 12 Hours) Vital Signs Temp Pulse Pulse Resp BP Pulse Ox O2 Del Method 04/29/25 08:36 36.6 C 96 H 18 96 04/29/25 08:03 36.6 C 82 16 108/69 96 04/29/25 08:00 89 04/29/25 07:42 36.7 C 75 13 95 04/29/25 07:00 36.6 C 91 H 16 100/68 97 Nasal Cannula 04/29/25 05:50 36.7 C 86 15 106/77 97 Nasal Cannula 04/29/25 05:00 96 Nasal Cannula 04/29/25 04:50 36.7 C 99 H 16 116/77 96 Nasal Cannula 04/29/25 03:50 36.9 C 88 14 112/58 L 97 Nasal Cannula 04/29/25 03:10 99 Nasal Cannula 04/29/25 02:51 91 H 16 97 Nasal Cannula 04/29/25 02:50 36.9 C 82 18 115/71 99 High Flow Nasal Cannula 04/29/25 01:51 90 16 91/55 L 95 High Flow Nasal Cannula 04/29/25 00:50 37.0 C 86 16 119/74 95 Nasal Cannula 04/29/25 00:00 96 H 04/28/25 23:50 37.1 C 99 H 14 112/68 94 High Flow Nasal Cannula 04/28/25 23:48 90 17 93 High Flow Nasal Cannula 04/28/25 22:51 37.2 C 102 H 18 99/71 L 95 High Flow Nasal Cannula O2 Flow Rate FiO2 04/29/25 08:36 04/29/25 08:03 04/29/25 08:00 04/29/25 07:42 04/29/25 07:00 3 04/29/25 05:50 3 04/29/25 05:00 6 04/29/25 04:50 3 04/29/25 03:50 6 04/29/25 03:10 35 40 04/29/25 02:51 6 04/29/25 02:50 35 40 04/29/25 01:51 35 40 04/29/25 00:50 35 40 04/29/25 00:00 04/28/25 23:50 35 40 04/28/25 23:48 35 40 04/28/25 22:51 35 40 Laboratory Results Cardiac Enzymes 04/28/25 04/28/25 04/28/25 Range/Units 11:09 15:48 22:30 AST 225 H (13-39) U/L Troponin I High Sens 47169.5 H* D 61799.3 H* D 67598.3 H* (0-20) pg/ml 04/29/25 Range/Units 04:23 AST 132 H (13-39) U/L Troponin I High Sens 06601.6 H* (0-20) pg/ml CBC 04/29/25 Range/Units 04:23 WBC 7.99 (4.8-10.8) K/ul RBC 4.17 L (4.70-6.10) M/uL Hgb 13.3 L (14.0-18.0) g/dl Hct 38.6 L (42.0-52.0) % Plt Count 137 (130-400) K/uL Comprehensive Metabolic Panel 04/28/25 04/29/25 Range/Units 11:09 04:23 Sodium 135 L 136 (136-145) mmol/L Potassium 4.0 4.1 (3.5-5.1) mmol/L Chloride 100 100 (98-107) mmol/L Carbon Dioxide 28 28 (21-32) mmol/L BUN 25 H 29 H (6-23) mg/dl Creatinine 1.73 H 1.59 H (0.6-1.4) mg/dl Glucose 134 H 129 H (70-99(Fasting)) mg/dl Calcium 9.2 8.7 (8.6-10.3) mg/dl AST 225 H 132 H (13-39) U/L ALT 29 24 (7-52) U/L Alkaline Phosphatase 50 46 (34-104) U/L Total Protein 6.5 6.1 (6.0-8.3) gm/dl Albumin 3.5 3.3 L (3.4-5.0) gm/dl Intake and Output 04/28/25 04/29/25 04/29/25 22:59 06:59 14:59 Intake Total 493.2 / 1519.030 249.6 / 1519.030 234.800 / 234.800 Output Total 275 / 1225 500 / 1225 100 / 100 Balance 218.2 / 294.030 -250.4 / 294.030 134.800 / 134.800 Intake: IV 493.2 / 1469.030 249.6 / 1469.030 234.800 / 234.800 Amiodarone / D5w 360 mg In 200 200 / 382.030 200.000 / 200.000 ml @ 0.5 MG/MIN 16.667 mls/hr IV .Q12H PB Rx#:[id number] Heparin 82798 Unit/500 ml D5w 293.2 / 582.0 249.6 / 582.0 34.8 / 34.8 25,000 units In 500 ml @ 1,200 UNITS/HR 24 mls/hr IV .[id number] BP Rx#:[id number] Output: Urine Amount (Catheter) 275 / 1225 500 / 1225 100 / 100 Temp Sensing Landa 275 / 1225 500 / 1225 100 / 100 # Bowel Movements 0 / 0 Other: Other Intake Source NPO NPO Weight 93.7 kg Weight Measurement Method Built in [facility] Diagnostic Findings Telemetry: His heart rate has gradually dropped, he is currently averaging perhaps 90 bpm which is not an appropriate given his heart disease. PG Care Time/CCT Total # of Minutes Spent Total Time Spent with Patient: Total time spent is greater than 50% in coordination of care (as documented) at patient's floor/unit and/or counseling patient: Coding Level of Care Code 66920 SUB INP/OBS CARE 2/35MIN Diagnoses Chronic heart failure with preserved ejection fraction I50.32 Heart failure chronicity: chronic Atrial fibrillation with rapid ventricular response I48.91 Elevated troponin R79.89 Cardiomyopathy I42.9 Valvular heart disease I38 (1) (HFpEF) heart failure with preserved ejection fraction Heart failure chronicity: chronic Qualified Code(s): I50.32 - Chronic diastolic (congestive) heart failure
--- NOTE | 2025-04-29 11:22 | Critical Care Progress Note ---
Date of Service April 29, 2025 Assessment & Plan (1) Hypoxic respiratory failure: Plan: Respiratory status improved significantly with diuresis. Likely multifactorial related to COVID-19 and congestive heart failure. Continue diuresis, but does appear and steroids. Continue broad-spectrum antibiotics. (2) Acute heart failure with preserved ejection fraction (HFpEF): Plan: Continue as needed diuretics per primary team. (3) Atrial fibrillation with rapid ventricular response: Plan: Appreciate EP input. Defer management of A-fib to them at this time. Continue beta-rodo. (4) Severe aortic regurgitation: Plan: Will need ischemic evaluation. (5) Aortic stenosis: (6) V tach: Plan: Amiodarone per EP. Replace electrolytes as needed. Will need ischemic evaluation as noted previously. (7) Mitral regurgitation and mitral stenosis: (8) Demand ischemia: Plan: Troponin severely elevated. Awaiting interventional cardiology input. Continue heparin. (9) Transaminitis: Plan: LFTs stable. Plan Patient stable for downgrade to PCU. ICU services to sign off. Thank you for the consult. Please call with questions. Admission and Anticipated Discharge Date Admission Date: April 27, 2025 Subjective Patient's oxygen requirements have improved significantly with improving blood pressure and heart rates. No acute events otherwise. Review of Systems Review of Systems: All systems reviewed & are unremarkable except as noted in HPI & below Physical Exam Physical Exam: Constitutional: Patient appears to be of their stated age. Patient is in no apparent distress. Patient is well-developed. Eyes: Pupils are equal round and reactive to light. Conjunctivae are normal. Anicteric sclera. Ears nose, mouth and throat: Mallampati class 2. Normal posterior oropharynx. Uvula is midline. Nonrebreather in place. Neck: Trachea is midline. Visual inspection is normal. Respiratory: Mild bibasilar crackles. Tachypneic. Cardiovascular: Regular rate and rhythm. No murmurs. No edema. Gastrointestinal: Normal bowel sounds, soft, nontender and nondistended. No hepatosplenomegaly noted. Musculoskeletal: No cyanosis. Patient is able to move all extremities. Strength is 5 out of 5 in the upper and lower extremities. Skin: No rashes, warm dry and intact. Neurologic: No obvious focal neurological deficits seen. Psychiatric: Alert and oriented x3 with a euthymic affect. Results & Data Results & Data Vital Signs (Past 12 Hours) Vital Signs Temp Pulse Pulse Resp BP Pulse Ox O2 Del Method 04/29/25 10:14 Nasal Cannula 04/29/25 10:00 36.7 C 102 H 13 97 04/29/25 09:50 125/84 04/29/25 09:33 36.6 C 82 12 97 04/29/25 09:03 36.6 C 88 16 98 04/29/25 08:50 135/68 04/29/25 08:36 36.6 C 96 H 18 96 04/29/25 08:03 36.6 C 82 16 108/69 96 04/29/25 08:00 89 04/29/25 07:42 36.7 C 75 13 95 04/29/25 07:00 36.6 C 91 H 16 100/68 97 Nasal Cannula 04/29/25 05:50 36.7 C 86 15 106/77 97 Nasal Cannula 04/29/25 05:00 96 Nasal Cannula 04/29/25 04:50 36.7 C 99 H 16 116/77 96 Nasal Cannula 04/29/25 03:50 36.9 C 88 14 112/58 L 97 Nasal Cannula 04/29/25 03:10 99 Nasal Cannula 04/29/25 02:51 91 H 16 97 Nasal Cannula 04/29/25 02:50 36.9 C 82 18 115/71 99 High Flow Nasal Cannula 04/29/25 01:51 90 16 91/55 L 95 High Flow Nasal Cannula 04/29/25 00:50 37.0 C 86 16 119/74 95 Nasal Cannula 04/29/25 00:00 96 H 04/28/25 23:50 37.1 C 99 H 14 112/68 94 High Flow Nasal Cannula 04/28/25 23:48 90 17 93 High Flow Nasal Cannula O2 Flow Rate FiO2 04/29/25 10:14 3 04/29/25 10:00 04/29/25 09:50 04/29/25 09:33 04/29/25 09:03 04/29/25 08:50 04/29/25 08:36 04/29/25 08:03 04/29/25 08:00 04/29/25 07:42 04/29/25 07:00 3 04/29/25 05:50 3 04/29/25 05:00 6 04/29/25 04:50 3 04/29/25 03:50 6 04/29/25 03:10 35 40 04/29/25 02:51 6 04/29/25 02:50 35 40 04/29/25 01:51 35 40 04/29/25 00:50 35 40 04/29/25 00:00 04/28/25 23:50 35 40 04/28/25 23:48 35 40 Coding Level of Care Code 56249 SUB INP/OBS CARE 2/35MIN Diagnoses Hypoxic respiratory failure J96.91 Acute heart failure with preserved ejection fraction (HFpEF) I50.31 Atrial fibrillation with rapid ventricular response I48.91 Severe aortic regurgitation I35.1 Aortic valve stenosis, etiology of cardiac valve disease unspecified I35.0 Cardiac valve disease etiology: etiology unspecified V tach I47.20 Mitral stenosis with insufficiency, unspecified etiology I05.2 Cardiac valve disease etiology: etiology unspecified Demand ischemia I24.89 Transaminitis R74.01 (5) Aortic stenosis Cardiac valve disease etiology: etiology unspecified Qualified Code(s): I35.0 - Nonrheumatic aortic (valve) stenosis (7) Mitral regurgitation and mitral stenosis Cardiac valve disease etiology: etiology unspecified Qualified Code(s): 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
[2025-04-29] MEDS: REMDESIVIR 100mg: Days 2-5 IV SCH (11:32)
[2025-04-29] MEDS: INSULIN ASPART PER UNIT CHARGE SC SCH (11:51)
--- NOTE | 2025-04-29 12:51 | Hospitalist Progress Note ---
Date of Service April 29, 2025 Assessment & Plan (1) A-fib: Plan: Mr.william maria is a 80 yo male, [facility]; with PMH of CAD, CHFpEF, aortic stenosis, mitral stenosis, CKD, depression with psychosis, hypertension on 04/27, presented from [facility] with cough, left side chest pain shortness of breath for 3-4 days, he been having coughing, shortness of breath for 3-4 days, also been having left side chest pain radiate into the forearm. he's was hypotensive, hypoxic needing 15-30 liter, and admitted to ICU he's was in A-fib and there is question of V-tach, started on amiodarone infusion, and heparin for ACS dose he's was started on remdesmivor for covid PNA, and maintain on cefepiome and doxycycyline 04/27, amiodarone, heparin for A-fib, ACS, cefepime and doxycycyline, needing 20- 30 liter informally spoke with [facility], they unable to determine appropriateness of remdemsivir 04/28, chest pain resolved; still on high flow oxygen, pulmonary started on remdemsivir on high flow, cardiology added low dose metoprolol 12.5 04/29, weaning to 3-4 liter oxygen, no chest pain , still on amiodarone and heparin 1. acute A-fib/Vtach 2. acute hypoxic respiratory failure 3. pneumonia 4. covid infection. 5. aortic stenosis 6. CHF with preserved EF 7. CKD 8. hypertension 9. PMh of CAD 10. hx of overactive bladder overall plan c/w heparin ACS dose and amiodarone avoid nitrate given his aortic stenosis cardiology plan for [facility] on Wednesday he's now weaned to 3 liter oxygen, c/w resmdemsivir, cefepime and monitor LFT, creatinine function hold off on lasix given he's will has contrast low on Wednesday 1. acute A-fib, V-tach he's on metoprolol 12.5 BID and amiodarone he's on heparin ACS dose chest pain resolved. he's on crestor 5mg he's off home med of atenolol 2. STEMI troponin peak at 66,[address] noted inferior wall ST elevation and Q wave in the aVF and lateral ST depression cardiology plan for [facility] on Wednesday cycyle troponin, aspirin, heparin ACS dose. statin chest pain resolved since yesterday 3. pna. cefepime, doxycycline, Mucinex. ?? viral versus bacteria he's was hypotensive on admission and need ICU stay started on remdemsivir by pulmonary he's weaning to 3-4 lite oxygen 4. covid infection, decadron, restarted on remdemsivir he's on mucinex. he's weaning to 3 liter oxygen 5. acute respiratory failure weaned to 3-4 liter oxygen on Wednesday (04/29) albuterol, mucinex. decadron 6. aortic stenosis, avoid nitrate severe mitral regurgitation echo done in 2024, show moderate 7. CHF, he's normally take atenolol 50mg and bumex 2mg daily lisinopril 40mg at home 8. GERD, he's on omeprazole 20mg at home 9. he's on thiothixene 2mg (4 caps) BID 8mg BID 10. code status: full code (2) V tach: (3) COVID: (4) Hypoxic respiratory failure: (5) Pneumonia: Admission and Anticipated Discharge Date Admission Date: April 27, 2025 Subjective reviewed cardiology note, they are planning for [facility] on Wednesday asssuming oxygen need is stable and BP stable his oxygen need decrease to below 4 liter his BP at noon is stable at 12 no subjective chest pain, shortness of breath, no confusion he's remained on amiodarone infusion, heparin drip continue to trend AST/ALT he's on remdemsivir for covid, he's on cefepime and multifocal PNA cardiology team following reviewed their note he's quitted smoking in 1980s Review of Systems Review of Systems: Constitutional: No Weight Change, No Fever, No Chills, No Night Sweats, No Fatigue, No Malaise Cardiovascular: No Chest Pain, No SOB, No PND, No Dyspnea on Exertion, No Claudication, No Edema, No Palpitations Respiratory: No Cough, No Sputum, No Wheezing, No Smoke Exposure, No Dyspnea Gastrointestinal: No Nausea, No Vomiting, No Diarrhea, No Constipation, No Pain, No Heartburn, No Anorexia, No Dysphagia, No Hematochezia, No Melena, No Flatulence, No Jaundice Musculoskeletal: no muscle ach Skin: No Skin Lesions, No Pruritis, No Hair Changes, No Breast/Skin Changes, No Nipple Discharge Neuro: No Weakness, No Numbness, No Paresthesias, No Loss of Consciousness, No Syncope, No Dizziness, No Headache, Psych: No Anxiety/Panic, No Depression, No Insomnia, No Personality Changes, No Delusions, No Rumination, No SI/HI/AH/VH, No Social Issues, No Memory Changes, No Violence/Abuse Hx., No Eating Concerns Physical Exam Physical Exam: VITALS: Reviewed. WEIGHT/BMI reviewed. GEN: Healthy appearing, well-developed, NAD. -Head: NC/AT; NECK: Supple, with no masses. CV: RRR, no m/r/g. LUNGS: severely decrease breath sound; on supplemental oxygen; no accessory muscle usage ABD: Soft, NT/ND, NBS, no masses or organomegaly. : N/A SKIN: Warm, well perfused. No skin rashes or abnormal lesions. EXT: No clubbing, cyanosis, or edema. NEURO AAox3 Results & Data Results & Data Vital Signs (Past 12 Hours) Vital Signs Temp Pulse Pulse Resp BP Pulse Ox O2 Del Method 04/29/25 10:14 Nasal Cannula 04/29/25 10:00 36.7 C 102 H 13 97 04/29/25 09:50 125/84 04/29/25 09:33 36.6 C 82 12 97 04/29/25 09:03 36.6 C 88 16 98 04/29/25 08:50 135/68 04/29/25 08:36 36.6 C 96 H 18 96 04/29/25 08:03 36.6 C 82 16 108/69 96 04/29/25 08:00 89 04/29/25 07:42 36.7 C 75 13 95 04/29/25 07:00 36.6 C 91 H 16 100/68 97 Nasal Cannula 04/29/25 05:50 36.7 C 86 15 106/77 97 Nasal Cannula 04/29/25 05:00 96 Nasal Cannula 04/29/25 04:50 36.7 C 99 H 16 116/77 96 Nasal Cannula 04/29/25 03:50 36.9 C 88 14 112/58 L 97 Nasal Cannula 04/29/25 03:10 99 Nasal Cannula 04/29/25 02:51 91 H 16 97 Nasal Cannula 04/29/25 02:50 36.9 C 82 18 115/71 99 High Flow Nasal Cannula 04/29/25 01:51 90 16 91/55 L 95 High Flow Nasal Cannula 04/29/25 00:50 37.0 C 86 16 119/74 95 Nasal Cannula O2 Flow Rate FiO2 04/29/25 10:14 3 04/29/25 10:00 04/29/25 09:50 04/29/25 09:33 04/29/25 09:03 04/29/25 08:50 04/29/25 08:36 04/29/25 08:03 04/29/25 08:00 04/29/25 07:42 04/29/25 07:00 3 04/29/25 05:50 3 04/29/25 05:00 6 04/29/25 04:50 3 04/29/25 03:50 6 04/29/25 03:10 35 40 04/29/25 02:51 6 04/29/25 02:50 35 40 04/29/25 01:51 35 40 04/29/25 00:50 35 40 Laboratory Results Laboratory Results - last 72 hr 04/27/25 04/27/25 04/27/25 15:03 15:09 15:16 WBC 7.85 RBC 4.65 L Hgb 14.4 POC Hgb 15.3 Hct 43.6 POC Hct 45 MCV 93.8 MCH 31.0 MCHC 33.0 RDW Std Deviation 46.8 H RDW Coeff of Demarcus 13.7 Plt Count 141 MPV 11.2 Immature Gran % (Auto) 0.4 Neut % (Auto) 74.4 Lymph % (Auto) 8.9 Dawes % (Auto) 15.9 Eos % (Auto) 0.1 Baso % (Auto) 0.3 Neut # (Auto) 5.84 Lymph # (Auto) 0.70 L Dawes # (Auto) 1.25 H Eos # (Auto) 0.01 Baso # (Auto) 0.02 Immature Gran # (Auto) 0.03 ESR PT 11.5 INR 1.1 APTT 31 PTT Ratio 1.2 Heparin Anti-Xa, Unfract POC Sodium 137 Sodium 136 POC Potassium 4.2 Potassium 4.2 POC Chloride 100 L Chloride 100 Carbon Dioxide 25 POC Total CO2 24 Anion Gap 11 POC Anion Gap 18.0 POC BUN 16 BUN 15 Creatinine 1.43 H POC Creatinine 1.5 H Est Cr Clr Drug Dosing Not Reportable eGFR 49.84 BUN/Creatinine Ratio 10.5 Glucose 155 H POC Glucose POC Glucose (other) 154 H Calcium 9.3 POC Ioniz Calcium Madelin 1.11 L Phosphorus Magnesium Total Bilirubin 1.0 AST 26 ALT 13 Alkaline Phosphatase 57 Troponin I High Sens 177.4 H* C-Reactive Protein B-Natriuretic Peptide 728 H Total Protein 7.4 Albumin 4.2 Globulin 3.2 Albumin/Globulin Ratio 1.3 TSH Urine Color Urine Appearance Urine pH Ur Specific [place] Urine Protein Urine Glucose (UA) Urine Ketones Urine Blood Urine Nitrite Urine Bilirubin Urine Urobilinogen Ur Leukocyte Esterase Urine Comment Nasal Screen MRSA (PCR) Digoxin Adenovirus (PCR) Not Detected B. pertussis DNA (PCR) Not Detected B.parapertussis DNA PCR Not Detected C. pneumoniae DNA (PCR) Not Detected Coronavirus OC43 (PCR) Not Detected Coronavirus HKU1 (PCR) Not Detected Coronavirus 229E (PCR) Not Detected SARS-CoV-2 (PCR) DETECTED A Coronavirus NL63 (PCR) Not Detected Human Metapneumovir PCR Not Detected Influenza Type A (PCR) Not Detected Influenza Type B (PCR) Not Detected M. pneumoniae (PCR) Not Detected Parainfluenza 1 (PCR) Not Detected Parainfluenza 2 (PCR) Not Detected Parainfluenza 3 (PCR) Not Detected Parainfluenza 4 (PCR) Not Detected RSV (PCR) Not Detected Entero/Rhino (PCR) Not Detected 04/27/25 04/27/25 04/27/25 16:18 16:45 16:59 WBC RBC Hgb POC Hgb Hct POC Hct MCV MCH MCHC RDW Std Deviation RDW Coeff of Demarcus Plt Count MPV Immature Gran % (Auto) Neut % (Auto) Lymph % (Auto) Dawes % (Auto) Eos % (Auto) Baso % (Auto) Neut # (Auto) Lymph # (Auto) Dawes # (Auto) Eos # (Auto) Baso # (Auto) Immature Gran # (Auto) ESR 51 H PT INR APTT PTT Ratio Heparin Anti-Xa, Unfract POC Sodium Sodium POC Potassium Potassium POC Chloride Chloride Carbon Dioxide POC Total CO2 Anion Gap POC Anion Gap POC BUN BUN Creatinine POC Creatinine Est Cr Clr Drug Dosing eGFR BUN/Creatinine Ratio Glucose POC Glucose POC Glucose (other) Calcium POC Ioniz Calcium Madelin Phosphorus Magnesium Total Bilirubin AST ALT Alkaline Phosphatase Troponin I High Sens 523.2 H* D C-Reactive Protein 2.60 H B-Natriuretic Peptide Total Protein Albumin Globulin Albumin/Globulin Ratio TSH 0.958 Urine Color Yellow Urine Appearance Clear Urine pH 5.5 Ur Specific [place] 1.037 H Urine Protein Negative Urine Glucose (UA) 3+ H Urine Ketones Negative Urine Blood Negative Urine Nitrite Negative Urine Bilirubin Negative Urine Urobilinogen Negative Ur Leukocyte Esterase Negative Urine Comment Nasal Screen MRSA (PCR) Digoxin Adenovirus (PCR) B. pertussis DNA (PCR) B.parapertussis DNA PCR C. pneumoniae DNA (PCR) Coronavirus OC43 (PCR) Coronavirus HKU1 (PCR) Coronavirus 229E (PCR) SARS-CoV-2 (PCR) Coronavirus NL63 (PCR) Human Metapneumovir PCR Influenza Type A (PCR) Influenza Type B (PCR) M. pneumoniae (PCR) Parainfluenza 1 (PCR) Parainfluenza 2 (PCR) Parainfluenza 3 (PCR) Parainfluenza 4 (PCR) RSV (PCR) Entero/Rhino (PCR) 04/27/25 04/27/25 04/27/25 17:52 18:39 23:47 WBC RBC Hgb POC Hgb Hct POC Hct MCV MCH MCHC RDW Std Deviation RDW Coeff of Demarcus Plt Count MPV Immature Gran % (Auto) Neut % (Auto) Lymph % (Auto) Dawes % (Auto) Eos % (Auto) Baso % (Auto) Neut # (Auto) Lymph # (Auto) Daw[place] # (Auto) Eos # (Auto) Baso # (Auto) Immature Gran # (Auto) ESR PT INR APTT PTT Ratio Heparin Anti-Xa, Unfract POC Sodium Sodium POC Potassium Potassium POC Chloride Chloride Carbon Dioxide POC Total CO2 Anion Gap POC Anion Gap POC BUN BUN Creatinine POC Creatinine Est Cr Clr Drug Dosing eGFR BUN/Creatinine Ratio Glucose POC Glucose 199 H 153 H POC Glucose (other) Calcium POC Ioniz Calcium [place] Phosphorus Magnesium Total Bilirubin AST ALT Alkaline Phosphatase Troponin I High Sens C-Reactive Protein B-Natriuretic Peptide Total Protein Albumin Globulin Albumin/Globulin Ratio TSH Urine Color Urine Appearance Urine pH Ur Specific [place] Urine Protein Urine Glucose (UA) Urine Ketones Urine Blood Urine Nitrite Urine Bilirubin Urine Urobilinogen Ur Leukocyte Esterase Urine Comment Nasal Screen MRSA (PCR) Negative Digoxin Adenovirus (PCR) B. pertussis DNA (PCR) B.parapertussis DNA PCR C. pneumoniae DNA (PCR) Coronavirus OC43 (PCR) Coronavirus HKU1 (PCR) Coronavirus 229E (PCR) SARS-CoV-2 (PCR) Coronavirus NL63 (PCR) Human Metapneumovir PCR Influenza Type A (PCR) Influenza Type B (PCR) M. pneumoniae (PCR) Parainfluenza 1 (PCR) Parainfluenza 2 (PCR) Parainfluenza 3 (PCR) Parainfluenza 4 (PCR) RSV (PCR) Entero/Rhino (PCR) 04/28/25 04/28/25 04/28/25 00:43 01:21 02:42 WBC RBC Hgb POC Hgb Hct POC Hct MCV MCH MCHC RDW Std Deviation RDW Coeff of Demarcus Plt Count MPV Immature Gran % (Auto) Neut % (Auto) Lymph % (Auto) Dawes % (Auto) Eos % (Auto) Baso % (Auto) Neut # (Auto) Lymph # (Auto) Dawes # (Auto) Eos # (Auto) Baso # (Auto) Immature Gran # (Auto) ESR PT INR APTT PTT Ratio Heparin Anti-Xa, Unfract 1.27 H* 0.80 H* POC Sodium Sodium POC Potassium Potassium POC Chloride Chloride Carbon Dioxide POC Total CO2 Anion Gap POC Anion Gap POC BUN BUN Creatinine POC Creatinine Est Cr Clr Drug Dosing eGFR BUN/Creatinine Ratio Glucose POC Glucose POC Glucose (other) Calcium POC Ioniz Calcium [place] Phosphorus Magnesium Total Bilirubin AST ALT Alkaline Phosphatase Troponin I High Sens 32938.9 H* D C-Reactive Protein B-Natriuretic Peptide Total Protein Albumin Globulin Albumin/Globulin Ratio TSH Urine Color Urine Appearance Urine pH Ur Specific [place] Urine Protein Urine Glucose (UA) Urine Ketones Urine Blood Urine Nitrite Urine Bilirubin Urine Urobilinogen Ur Leukocyte Esterase Urine Comment Nasal Screen MRSA (PCR) Digoxin Adenovirus (PCR) B. pertussis DNA (PCR) B.parapertussis DNA PCR C. pneumoniae DNA (PCR) Coronavirus OC43 (PCR) Coronavirus HKU1 (PCR) Coronavirus 229E (PCR) SARS-CoV-2 (PCR) Coronavirus NL63 (PCR) Human Metapneumovir PCR Influenza Type A (PCR) Influenza Type B (PCR) M. pneumoniae (PCR) Parainfluenza 1 (PCR) Parainfluenza 2 (PCR) Parainfluenza 3 (PCR) Parainfluenza 4 (PCR) RSV (PCR) Entero/Rhino (PCR) 04/28/25 04/28/25 04/28/25 04:34 04:35 11:09 WBC 10.47 RBC 4.48 L Hgb 13.8 L POC Hgb Hct 40.9 L POC Hct MCV 91.3 MCH 30.8 MCHC 33.7 RDW Std Deviation 45.5 RDW Coeff of Demarcus 13.7 Plt Count 160 MPV 11.0 Immature Gran % (Auto) Neut % (Auto) Lymph % (Auto) [place] % (Auto) Eos % (Auto) Baso % (Auto) Neut # (Auto) Lymph # (Auto) [place] # (Auto) Eos # (Auto) Baso # (Auto) Immature Gran # (Auto) ESR PT INR APTT PTT Ratio Heparin Anti-Xa, Unfract 0.30 0.43 POC Sodium Sodium 136 135 L POC Potassium Potassium 4.3 4.0 POC Chloride Chloride 100 100 Carbon Dioxide 27 28 POC Total CO2 Anion Gap 9 7 POC Anion Gap POC BUN BUN 23 25 H Creatinine 1.68 H 1.73 H POC Creatinine Est Cr Clr Drug Dosing 41.5 40.3 eGFR 41.08 39.66 BUN/Creatinine Ratio 13.7 14.5 Glucose 153 H 134 H POC Glucose POC Glucose (other) Calcium 9.2 9.2 POC Ioniz Calcium Madelin Phosphorus 3.1 Magnesium 2.5 H Total Bilirubin 0.8 0.8 AST 237 H 225 H ALT 28 29 Alkaline Phosphatase 53 50 Troponin I High Sens 14679.1 H* 68472.5 H* D C-Reactive Protein B-Natriuretic Peptide Total Protein 6.8 6.5 Albumin 3.6 3.5 Globulin 3.2 3.0 Albumin/Globulin Ratio 1.1 1.2 TSH Urine Color Urine Appearance Urine pH Ur Specific [place] Urine Protein Urine Glucose (UA) Urine Ketones Urine Blood Urine Nitrite Urine Bilirubin Urine Urobilinogen Ur Leukocyte Esterase Urine Comment Nasal Screen MRSA (PCR) Digoxin Adenovirus (PCR) B. pertussis DNA (PCR) B.parapertussis DNA PCR C. pneumoniae DNA (PCR) Coronavirus OC43 (PCR) Coronavirus HKU1 (PCR) Coronavirus 229E (PCR) SARS-CoV-2 (PCR) Coronavirus NL63 (PCR) Human Metapneumovir PCR Influenza Type A (PCR) Influenza Type B (PCR) M. pneumoniae (PCR) Parainfluenza 1 (PCR) Parainfluenza 2 (PCR) Parainfluenza 3 (PCR) Parainfluenza 4 (PCR) RSV (PCR) Entero/Rhino (PCR) 04/28/25 04/28/25 04/28/25 15:48 18:12 22:30 WBC RBC Hgb POC Hgb Hct POC Hct MCV MCH MCHC RDW Std Deviation RDW Coeff of Demarcus Plt Count MPV Immature Gran % (Auto) Neut % (Auto) Lymph % (Auto) [place] % (Auto) Eos % (Auto) Baso % (Auto) Neut # (Auto) Lymph # (Auto) [place] # (Auto) Eos # (Auto) Baso # (Auto) Immature Gran # (Auto) ESR PT INR APTT PTT Ratio Heparin Anti-Xa, Unfract POC Sodium Sodium POC Potassium Potassium POC Chloride Chloride Carbon Dioxide POC Total CO2 Anion Gap POC Anion Gap POC BUN BUN Creatinine POC Creatinine Est Cr Clr Drug Dosing eGFR BUN/Creatinine Ratio Glucose POC Glucose 139 H POC Glucose (other) Calcium POC Ioniz Calcium [place] Phosphorus Magnesium Total Bilirubin AST ALT Alkaline Phosphatase Troponin I High Sens 88508.3 H* D 03247.3 H* C-Reactive Protein B-Natriuretic Peptide Total Protein Albumin Globulin Albumin/Globulin Ratio TSH Urine Color Urine Appearance Urine pH Ur Specific [place] Urine Protein Urine Glucose (UA) Urine Ketones Urine Blood Urine Nitrite Urine Bilirubin Urine Urobilinogen Ur Leukocyte Esterase Urine Comment Nasal Screen MRSA (PCR) Digoxin Adenovirus (PCR) B. pertussis DNA (PCR) B.parapertussis DNA PCR C. pneumoniae DNA (PCR) Coronavirus OC43 (PCR) Coronavirus HKU1 (PCR) Coronavirus 229E (PCR) SARS-CoV-2 (PCR) Coronavirus NL63 (PCR) Human Metapneumovir PCR Influenza Type A (PCR) Influenza Type B (PCR) M. pneumoniae (PCR) Parainfluenza 1 (PCR) Parainfluenza 2 (PCR) Parainfluenza 3 (PCR) Parainfluenza 4 (PCR) RSV (PCR) Entero/Rhino (PCR) 04/28/25 04/29/25 04/29/25 23:47 04:23 11:38 WBC 7.99 RBC 4.17 L Hgb 13.3 L POC Hgb Hct 38.6 L POC Hct MCV 92.6 MCH 31.9 MCHC 34.5 RDW Std Deviation 47.0 H RDW Coeff of Demarcus 13.7 Plt Count 137 MPV 11.1 Immature Gran % (Auto) Neut % (Auto) Lymph % (Auto) [place] % (Auto) Eos % (Auto) Baso % (Auto) Neut # (Auto) Lymph # (Auto) [place] # (Auto) Eos # (Auto) Baso # (Auto) Immature Gran # (Auto) ESR PT INR APTT PTT Ratio Heparin Anti-Xa, Unfract 0.51 POC Sodium Sodium 136 POC Potassium Potassium 4.1 POC Chloride Chloride 100 Carbon Dioxide 28 POC Total CO2 Anion Gap 8 POC Anion Gap POC BUN BUN 29 H Creatinine 1.59 H POC Creatinine Est Cr Clr Drug Dosing 43.8 eGFR 43.89 BUN/Creatinine Ratio 18.2 Glucose 129 H POC Glucose 116 H POC Glucose (other) Calcium 8.7 POC Ioniz Calcium [place] Phosphorus Magnesium 2.4 Total Bilirubin 1.0 AST 132 H ALT 24 Alkaline Phosphatase 46 Troponin I High Sens 45769.6 H* C-Reactive Protein B-Natriuretic Peptide Total Protein 6.1 Albumin 3.3 L Globulin 2.8 Albumin/Globulin Ratio 1.2 TSH Urine Color Urine Appearance Urine pH Ur Specific [place] Urine Protein Urine Glucose (UA) Urine Ketones Urine Blood Urine Nitrite Urine Bilirubin Urine Urobilinogen Ur Leukocyte Esterase Urine Comment Nasal Screen MRSA (PCR) Digoxin 1.2 Adenovirus (PCR) B. pertussis DNA (PCR) B.parapertussis DNA PCR C. pneumoniae DNA (PCR) Coronavirus OC43 (PCR) Coronavirus HKU1 (PCR) Coronavirus 229E (PCR) SARS-CoV-2 (PCR) Coronavirus NL63 (PCR) Human Metapneumovir PCR Influenza Type A (PCR) Influenza Type B (PCR) M. pneumoniae (PCR) Parainfluenza 1 (PCR) Parainfluenza 2 (PCR) Parainfluenza 3 (PCR) Parainfluenza 4 (PCR) RSV (PCR) Entero/Rhino (PCR) 04/29/25 11:41 WBC RBC Hgb POC Hgb Hct POC Hct MCV MCH MCHC RDW Std Deviation RDW Coeff of Demarcus Plt Count MPV Immature Gran % (Auto) Neut % (Auto) Lymph % (Auto) [place] % (Auto) Eos % (Auto) Baso % (Auto) Neut # (Auto) Lymph # (Auto) [place] # (Auto) Eos # (Auto) Baso # (Auto) Immature Gran # (Auto) ESR PT INR APTT PTT Ratio Heparin Anti-Xa, Unfract POC Sodium Sodium POC Potassium Potassium POC Chloride Chloride Carbon Dioxide POC Total CO2 Anion Gap POC Anion Gap POC BUN BUN Creatinine POC Creatinine Est Cr Clr Drug Dosing eGFR BUN/Creatinine Ratio Glucose POC Glucose 153 H POC Glucose (other) Calcium POC Ioniz Calcium [place] Phosphorus Magnesium Total Bilirubin AST ALT Alkaline Phosphatase Troponin I High Sens C-Reactive Protein B-Natriuretic Peptide Total Protein Albumin Globulin Albumin/Globulin Ratio TSH Urine Color Urine Appearance Urine pH Ur Specific [place] Urine Protein Urine Glucose (UA) Urine Ketones Urine Blood Urine Nitrite Urine Bilirubin Urine Urobilinogen Ur Leukocyte Esterase Urine Comment Nasal Screen MRSA (PCR) Digoxin Adenovirus (PCR) B. pertussis DNA (PCR) B.parapertussis DNA PCR C. pneumoniae DNA (PCR) Coronavirus OC43 (PCR) Coronavirus HKU1 (PCR) Coronavirus 229E (PCR) SARS-CoV-2 (PCR) Coronavirus NL63 (PCR) Human Metapneumovir PCR Influenza Type A (PCR) Influenza Type B (PCR) M. pneumoniae (PCR) Parainfluenza 1 (PCR) Parainfluenza 2 (PCR) Parainfluenza 3 (PCR) Parainfluenza 4 (PCR) RSV (PCR) Entero/Rhino (PCR) Medications Administered Current Inpatient Medications Amlodipine Besylate (Amlodipine Besylate 5 Mg Tab) 10 mg PO DAILY PB Stop: 05/28/25 08:59 Aspirin (Aspirin 81 Mg Ectab) 81 mg PO DAILY PB Stop: 05/28/25 08:59 Last Admin: 04/29/25 08:47 Dose: 81 mg Bumetanide (Bumetanide 1 Mg Tab) 2 mg PO DAILY [facility] Stop: 05/28/25 08:59 Dextrose (Dextrose 50% 50 Ml Syringe) 25 - 50 ml IV UD PRN; Protocol PRN Reason: Hypoglycemia Protocol Stop: 05/27/25 19:24 Glucagon (Glucagon For Inj 1 Mg Vial) 1 mg SQ UD PRN; Protocol PRN Reason: Hypoglycemia Protocol Stop: 05/27/25 19:24 Glucose (Glucose 40% Gel 15 Gm Tube) 15 - 30 gm PO UD PRN; Protocol PRN Reason: Hypoglycemia Protocol Stop: 05/27/25 19:24 Glucose (Glucose 10 Tab/Tube) 4 - 8 tab PO UD PRN; Protocol PRN Reason: Hypoglycemia Protocol Stop: 05/27/25 19:24 Guaifenesin (Guaifenesin 600 Mg Tabcr) 1,200 mg PO Q12 PB Stop: 05/27/25 20:59 Last Admin: 04/29/25 08:47 Dose: 1,200 mg Amiodarone HCl/Dextrose (Nexterone / D5w) 360 mg in 200 mls @ 16.667 mls/hr IV .Q12H PB Stop: 05/27/25 22:14 Last Admin: 04/29/25 09:47 Dose: 0.5 mg/min, 16.7 mls/hr Cefepime HCl (Maxipime 2000mg) 2,000 mg in 20 mls @ 5 mls/min IV Q12H PB; Protocol Stop: 05/02/25 20:59 Last Admin: 04/29/25 08:46 Dose: 5 mls/min Heparin Sodium/Dextrose (Heparin 18178 Unit/500 Ml D5w) 25,000 units in 500 mls @ 24 mls/hr IV .[id number] PB; Protocol Stop: 05/27/25 17:29 Last Admin: 04/29/25 11:32 Dose: 1,200 units/hr, 24 mls/hr Remdesivir 100 mg/ Sodium (Chloride) 250 mls @ 250 mls/hr IV Q24H [facility] Stop: 05/02/25 12:59 Last Admin: 04/29/25 11:32 Dose: 250 mls/hr Azithromycin (Zithromax) 500 mg in 255 mls @ 127.5 mls/hr IV Q24H [facility] Stop: 05/03/25 09:59 Last Infusion: 04/29/25 11:53 Dose: Infused Hydrocortisone Sodium (Succinate 50 mg/ Syringe) 1 mls @ 4 mls/min IV Q6H PB Stop: 05/28/25 09:59 Last Admin: 04/29/25 09:50 Dose: 4 mls/min Insulin Aspart (Insulin Aspart Per Unit Charge) 0 units SC ACHS [facility] Stop: 05/29/25 11:29 Last Admin: 04/29/25 11:51 Dose: 5 units Lisinopril (Lisinopril 40 Mg Tab) 40 mg PO DAILY PB Stop: 05/28/25 08:59 Metoprolol Tartrate (Metoprolol Tartrate 25 Mg Tab) 12.5 mg PO TID PB Stop: 05/29/25 16:59 Miscellaneous (Carbohydrates For Hypoglycemia ) 15 - 30 gm PO UD PRN PRN Reason: Hypoglycemia Protocol Stop: 05/27/25 19:24 Ondansetron HCl (Ondansetron Inj 2 Mg/Ml 2 Ml Vial) 4 mg IV Q4H PRN PRN Reason: Nausea Stop: 05/27/25 21:22 Last Admin: 04/27/25 21:36 Dose: 4 mg Pantoprazole Sodium (Pantoprazole 40 Mg Tab) 40 mg PO DAILY PB Stop: 05/28/25 08:59 Last Admin: 04/29/25 08:47 Dose: 40 mg Rosuvastatin Calcium (Rosuvastatin Calcium 5 Mg Tab) 5 mg PO DAILY PB Stop: 05/28/25 08:59 Last Admin: 04/29/25 08:47 Dose: 5 mg Thiothixene (Thiothixene 1 Mg Cap) 3 mg PO BID PB Stop: 05/27/25 20:59 Last Admin: 04/29/25 08:46 Dose: 3 mg Thiothixene (Thiothixene 5 Mg Cap) 5 mg PO BID PB Stop: 05/27/25 20:59 Last Admin: 04/29/25 08:47 Dose: 5 mg Trihexyphenidyl HCl (Trihexyphenidyl Hcl 5 Mg Tab) 5 mg PO TIDM PB Stop: 05/27/25 18:29 Last Admin: 04/29/25 11:32 Dose: 5 mg Vitamin B Complex/Folic Acid (Nephrocaps) 1 cap PO DAILY PB Stop: 05/28/25 08:59 Last Admin: 04/29/25 08:46 Dose: 1 cap PG Care Time/CCT Total # of Minutes Spent Total Time Spent with Patient: Total time spent is greater than 50% in coordination of care (as documented) at patient's floor/unit and/or counseling patient: Coding Level of Care Code 74477 SUB INP/OBS CARE 09/09MIN Diagnoses A-fib I48.91 V tach I47.20 COVID U07.1 Hypoxic respiratory failure J96.91 Pneumonia J18.9 Time Spent (min) 25
[2025-04-29] MEDS: METOPROLOL TARTRATE 25 MG TAB PO SCH (16:59)
[2025-04-30] MEDS: BUMETANIDE 1 MG TAB PO SCH (08:37)
[2025-04-30 08:47] LABS: ANTI-Xa, UFH(UnfractionatedHep < 0.10 IU/ml (0.3-0.7)
--- NOTE | 2025-04-30 09:56 | Hospitalist Progress Note ---
Date of Service April 30, 2025 Assessment & Plan (1) A-fib: Plan: Mr.william maria is a 80 yo male, nursing home; with PMH of CAD, CHFpEF, aortic stenosis, mitral stenosis, CKD, depression with psychosis, hypertension on 04/27, presented from nursing home with cough, left side chest pain shortness of breath for 3-4 days, he been having coughing, shortness of breath for 3-4 days, also been having left side chest pain radiate into the forearm. he's was hypotensive, hypoxic needing 15-30 liter, and admitted to ICU he's was in A-fib and there is question of V-tach, started on amiodarone infusion, and heparin for ACS dose he's was started on remdesmivor for covid PNA, and maintain on cefepiome and doxycycyline 04/27, amiodarone, heparin for A-fib, ACS, cefepime and doxycycyline, needing 20- 30 liter informally spoke with [facility], they unable to determine appropriateness of remdemsivir 04/28, chest pain resolved; still on high flow oxygen, pulmonary started on remdemsivir on high flow, cardiology added low dose metoprolol 12.5 04/29, weaning to 3-4 liter oxygen, no chest pain , still on amiodarone and heparin 04/30/ cardiology plan for [facility] today; off heparin since 4am oxygen status stable, no chest pain, no shortness of breath 1. acute A-fib/Vtach 2. acute hypoxic respiratory failure 3. pneumonia 4. covid infection. 5. aortic stenosis 6. CHF with preserved EF 7. CKD 8. hypertension 9. PMh of CAD 10. hx of overactive bladder overall plan defer to cardiology about urgency of addressing aortic stenosis off heparin since 4am plan for [facility] today continue to monitor LFT on remdemsivir he's currently on 1-2 liter oxygen 1. acute A-fib, V-tach he's on metoprolol 12.5 BID and amiodarone he's on heparin ACS dose chest pain resolved. he's on crestor 5mg he's off home med of atenolol 2. STEMI troponin peak at 66,[address] noted inferior wall ST elevation and Q wave in the aVF and lateral ST depression cardiology plan for [facility] on Wednesday cycyle troponin, aspirin, heparin ACS dose. statin chest pain resolved since yesterday 3. pna. cefepime, doxycycline, Mucinex. ?? viral versus bacteria he's was hypotensive on admission and need ICU stay started on remdemsivir by pulmonary he's weaning to 3-4 lite oxygen 4. covid infection, decadron, restarted on remdemsivir he's on mucinex. he's weaning to 3 liter oxygen 5. acute respiratory failure weaned to 3-4 liter oxygen on Wednesday (04/29) albuterol, mucinex. decadron 6. aortic stenosis, avoid nitrate severe mitral regurgitation echo done in 2024, show moderate 7. CHF, he's normally take atenolol 50mg and bumex 2mg daily lisinopril 40mg at home 8. GERD, he's on omeprazole 20mg at home 9. he's on thiothixene 2mg (4 caps) BID 8mg BID 10. code status: full code (2) V tach: (3) COVID: (4) Hypoxic respiratory failure: (5) Pneumonia: Admission and Anticipated Discharge Date Admission Date: April 27, 2025 Subjective cardiology plan for [facility] today he off heparin since 4am no chest pain, no shortness of breath oxygen requirement stable he still on amiodarone infusion, remdemsivir he is AAOx3; and appeared comfortable Review of Systems Review of Systems: Constitutional: No Weight Change, No Fever, No Chills, No Night Sweats, No Fatigue, No Malaise Cardiovascular: chest pain resolved; no palpitation; no diaphoresis respiratory: no coughing, no wheezing; no congestion Gastrointestinal: No Nausea, No Vomiting, No Diarrhea, No Constipation, No Pain, No Heartburn, No Anorexia, No Dysphagia, No Hematochezia, No Melena, No Flatulence, No Jaundice Musculoskeletal: No Arthralgias, No Myalgias, No Joint Swelling, No Joint Stiffness, No Back Pain, No Neck Pain, No Injury History Skin: No Skin Lesions, No Pruritis, No Hair Changes, No Breast/Skin Changes, No Nipple Discharge Neuro: No Weakness, No Numbness, No Paresthesias, No Loss of Consciousness, No Syncope, No Dizziness, No Headache, No Coordination Changes, No Recent Falls Physical Exam Physical Exam: VITALS: Reviewed. WEIGHT/BMI reviewed. GEN: Healthy appearing, well-developed, NAD. -Head: NC/AT; -Eyes: PERRL, EOMI. No discharge or redn ess; CV: RRR, no m/r/g. LUNGS: CTAB, no w/r/c. on oxygen ABD: Soft, NT/ND, NBS, no masses or organomegaly. SKIN: Warm, well perfused. No skin rashes or abnormal lesions. MSK: No deformities, Normal gait. EXT: No clubbing, cyanosis, or edema. NEURO: AAOx3 Results & Data Results & Data Vital Signs (Past 12 Hours) Vital Signs Temp Pulse Pulse Resp BP Pulse Ox O2 Del Method 04/30/25 08:10 83 18 140/85 95 Nasal Cannula 04/30/25 04:08 36.6 C 90 18 120/70 97 Nasal Cannula 04/29/25 23:36 36.9 C 92 H 18 132/77 92 Nasal Cannula 04/29/25 22:02 98 H O2 Flow Rate 04/30/25 08:10 1 04/30/25 04:08 04/29/25 23:36 2 04/29/25 22:02 Laboratory Results Laboratory Results - last 72 hr 04/27/25 04/27/25 04/27/25 15:03 15:09 15:16 WBC 7.85 RBC 4.65 L Hgb 14.4 POC Hgb 15.3 Hct 43.6 POC Hct 45 MCV 93.8 MCH 31.0 MCHC 33.0 RDW Std Deviation 46.8 H RDW Coeff of Demarcus 13.7 Plt Count 141 MPV 11.2 Immature Gran % (Auto) 0.4 Neut % (Auto) 74.4 Lymph % (Auto) 8.9 Nicholas % (Auto) 15.9 Eos % (Auto) 0.1 Baso % (Auto) 0.3 Neut # (Auto) 5.84 Lymph # (Auto) 0.70 L Nicholas # (Auto) 1.25 H Eos # (Auto) 0.01 Baso # (Auto) 0.02 Immature Gran # (Auto) 0.03 ESR PT 11.5 INR 1.1 APTT 31 PTT Ratio 1.2 Heparin Anti-Xa, Unfract POC Sodium 137 Sodium 136 POC Potassium 4.2 Potassium 4.2 POC Chloride 100 L Chloride 100 Carbon Dioxide 25 POC Total CO2 24 Anion Gap 11 POC Anion Gap 18.0 POC BUN 16 BUN 15 Creatinine 1.43 H POC Creatinine 1.5 H Est Cr Clr Drug Dosing Not Reportable eGFR 49.84 BUN/Creatinine Ratio 10.5 Glucose 155 H POC Glucose POC Glucose (other) 154 H Calcium 9.3 POC Ioniz Calcium Madelin 1.11 L Phosphorus Magnesium Total Bilirubin 1.0 AST 26 ALT 13 Alkaline Phosphatase 57 Troponin I High Sens 177.4 H* C-Reactive Protein B-Natriuretic Peptide 728 H Total Protein 7.4 Albumin 4.2 Globulin 3.2 Albumin/Globulin Ratio 1.3 TSH Urine Color Urine Appearance Urine pH Ur Specific Union Urine Protein Urine Glucose (UA) Urine Ketones Urine Blood Urine Nitrite Urine Bilirubin Urine Urobilinogen Ur Leukocyte Esterase Urine Comment Nasal Screen MRSA (PCR) Digoxin Adenovirus (PCR) Not Detected B. pertussis DNA (PCR) Not Detected B.parapertussis DNA PCR Not Detected C. pneumoniae DNA (PCR) Not Detected Coronavirus OC43 (PCR) Not Detected Coronavirus HKU1 (PCR) Not Detected Coronavirus 229E (PCR) Not Detected SARS-CoV-2 (PCR) DETECTED A Coronavirus NL63 (PCR) Not Detected Human Metapneumovir PCR Not Detected Influenza Type A (PCR) Not Detected Influenza Type B (PCR) Not Detected M. pneumoniae (PCR) Not Detected Parainfluenza 1 (PCR) Not Detected Parainfluenza 2 (PCR) Not Detected Parainfluenza 3 (PCR) Not Detected Parainfluenza 4 (PCR) Not Detected RSV (PCR) Not Detected Entero/Rhino (PCR) Not Detected 04/27/25 04/27/25 04/27/25 16:18 16:45 16:59 WBC RBC Hgb POC Hgb Hct POC Hct MCV MCH MCHC RDW Std Deviation RDW Coeff of Demarcus Plt Count MPV Immature Gran % (Auto) Neut % (Auto) Lymph % (Auto) Nicholas % (Auto) Eos % (Auto) Baso % (Auto) Neut # (Auto) Lymph # (Auto) Nicholas # (Auto) Eos # (Auto) Baso # (Auto) Immature Gran # (Auto) ESR 51 H PT INR APTT PTT Ratio Heparin Anti-Xa, Unfract POC Sodium Sodium POC Potassium Potassium POC Chloride Chloride Carbon Dioxide POC Total CO2 Anion Gap POC Anion Gap POC BUN BUN Creatinine POC Creatinine Est Cr Clr Drug Dosing eGFR BUN/Creatinine Ratio Glucose POC Glucose POC Glucose (other) Calcium POC Ioniz Calcium Madelin Phosphorus Magnesium Total Bilirubin AST ALT Alkaline Phosphatase Troponin I High Sens 523.2 H* D C-Reactive Protein 2.60 H B-Natriuretic Peptide Total Protein Albumin Globulin Albumin/Globulin Ratio TSH 0.958 Urine Color Yellow Urine Appearance Clear Urine pH 5.5 Ur Specific Union 1.037 H Urine Protein Negative Urine Glucose (UA) 3+ H Urine Ketones Negative Urine Blood Negative Urine Nitrite Negative Urine Bilirubin Negative Urine Urobilinogen Negative Ur Leukocyte Esterase Negative Urine Comment Nasal Screen MRSA (PCR) Digoxin Adenovirus (PCR) B. pertussis DNA (PCR) B.parapertussis DNA PCR C. pneumoniae DNA (PCR) Coronavirus OC43 (PCR) Coronavirus HKU1 (PCR) Coronavirus 229E (PCR) SARS-CoV-2 (PCR) Coronavirus NL63 (PCR) Human Metapneumovir PCR Influenza Type A (PCR) Influenza Type B (PCR) M. pneumoniae (PCR) Parainfluenza 1 (PCR) Parainfluenza 2 (PCR) Parainfluenza 3 (PCR) Parainfluenza 4 (PCR) RSV (PCR) Entero/Rhino (PCR) 04/27/25 04/27/25 04/27/25 17:52 18:39 23:47 WBC RBC Hgb POC Hgb Hct POC Hct MCV MCH MCHC RDW Std Deviation RDW Coeff of Demarcus Plt Count MPV Immature Gran % (Auto) Neut % (Auto) Lymph % (Auto) Nicholas % (Auto) Eos % (Auto) Baso % (Auto) Neut # (Auto) Lymph # (Auto) Nicholas # (Auto) Eos # (Auto) Baso # (Auto) Immature Gran # (Auto) ESR PT INR APTT PTT Ratio Heparin Anti-Xa, Unfract POC Sodium Sodium POC Potassium Potassium POC Chloride Chloride Carbon Dioxide POC Total CO2 Anion Gap POC Anion Gap POC BUN BUN Creatinine POC Creatinine Est Cr Clr Drug Dosing eGFR BUN/Creatinine Ratio Glucose POC Glucose 199 H 153 H POC Glucose (other) Calcium POC Ioniz Calcium Madelin Phosphorus Magnesium Total Bilirubin AST ALT Alkaline Phosphatase Troponin I High Sens C-Reactive Protein B-Natriuretic Peptide Total Protein Albumin Globulin Albumin/Globulin Ratio TSH Urine Color Urine Appearance Urine pH Ur Specific Union Urine Protein Urine Glucose (UA) Urine Ketones Urine Blood Urine Nitrite Urine Bilirubin Urine Urobilinogen Ur Leukocyte Esterase Urine Comment Nasal Screen MRSA (PCR) Negative Digoxin Adenovirus (PCR) B. pertussis DNA (PCR) B.parapertussis DNA PCR C. pneumoniae DNA (PCR) Coronavirus OC43 (PCR) Coronavirus HKU1 (PCR) Coronavirus 229E (PCR) SARS-CoV-2 (PCR) Coronavirus NL63 (PCR) Human Metapneumovir PCR Influenza Type A (PCR) Influenza Type B (PCR) M. pneumoniae (PCR) Parainfluenza 1 (PCR) Parainfluenza 2 (PCR) Parainfluenza 3 (PCR) Parainfluenza 4 (PCR) RSV (PCR) Entero/Rhino (PCR) 04/28/25 04/28/25 04/28/25 00:43 01:21 02:42 WBC RBC Hgb POC Hgb Hct POC Hct MCV MCH MCHC RDW Std Deviation RDW Coeff of Demarcus Plt Count MPV Immature Gran % (Auto) Neut % (Auto) Lymph % (Auto) Nicholas % (Auto) Eos % (Auto) Baso % (Auto) Neut # (Auto) Lymph # (Auto) Nicholas # (Auto) Eos # (Auto) Baso # (Auto) Immature Gran # (Auto) ESR PT INR APTT PTT Ratio Heparin Anti-Xa, Unfract 1.27 H* 0.80 H* POC Sodium Sodium POC Potassium Potassium POC Chloride Chloride Carbon Dioxide POC Total CO2 Anion Gap POC Anion Gap POC BUN BUN Creatinine POC Creatinine Est Cr Clr Drug Dosing eGFR BUN/Creatinine Ratio Glucose POC Glucose POC Glucose (other) Calcium POC Ioniz Calcium Madelin Phosphorus Magnesium Total Bilirubin AST ALT Alkaline Phosphatase Troponin I High Sens 73210.9 H* D C-Reactive Protein B-Natriuretic Peptide Total Protein Albumin Globulin Albumin/Globulin Ratio TSH Urine Color Urine Appearance Urine pH Ur Specific Union Urine Protein Urine Glucose (UA) Urine Ketones Urine Blood Urine Nitrite Urine Bilirubin Urine Urobilinogen Ur Leukocyte Esterase Urine Comment Nasal Screen MRSA (PCR) Digoxin Adenovirus (PCR) B. pertussis DNA (PCR) B.parapertussis DNA PCR C. pneumoniae DNA (PCR) Coronavirus OC43 (PCR) Coronavirus HKU1 (PCR) Coronavirus 229E (PCR) SARS-CoV-2 (PCR) Coronavirus NL63 (PCR) Human Metapneumovir PCR Influenza Type A (PCR) Influenza Type B (PCR) M. pneumoniae (PCR) Parainfluenza 1 (PCR) Parainfluenza 2 (PCR) Parainfluenza 3 (PCR) Parainfluenza 4 (PCR) RSV (PCR) Entero/Rhino (PCR) 04/28/25 04/28/25 04/28/25 04:34 04:35 11:09 WBC 10.47 RBC 4.48 L Hgb 13.8 L POC Hgb Hct 40.9 L POC Hct MCV 91.3 MCH 30.8 MCHC 33.7 RDW Std Deviation 45.5 RDW Coeff of Demarcus 13.7 Plt Count 160 MPV 11.0 Immature Gran % (Auto) Neut % (Auto) Lymph % (Auto) Nicholas % (Auto) Eos % (Auto) Baso % (Auto) Neut # (Auto) Lymph # (Auto) Nicholas # (Auto) Eos # (Auto) Baso # (Auto) Immature Gran # (Auto) ESR PT INR APTT PTT Ratio Heparin Anti-Xa, Unfract 0.30 0.43 POC Sodium Sodium 136 135 L POC Potassium Potassium 4.3 4.0 POC Chloride Chloride 100 100 Carbon Dioxide 27 28 POC Total CO2 Anion Gap 9 7 POC Anion Gap POC BUN BUN 23 25 H Creatinine 1.68 H 1.73 H POC Creatinine Est Cr Clr Drug Dosing 41.5 40.3 eGFR 41.08 39.66 BUN/Creatinine Ratio 13.7 14.5 Glucose 153 H 134 H POC Glucose POC Glucose (other) Calcium 9.2 9.2 POC Ioniz Calcium Madelni Phosphorus 3.1 Magnesium 2.5 H Total Bilirubin 0.8 0.8 AST 237 H 225 H ALT 28 29 Alkaline Phosphatase 53 50 Troponin I High Sens 58683.1 H* 31175.5 H* D C-Reactive Protein B-Natriuretic Peptide Total Protein 6.8 6.5 Albumin 3.6 3.5 Globulin 3.2 3.0 Albumin/Globulin Ratio 1.1 1.2 TSH Urine Color Urine Appearance Urine pH Ur Specific Union Urine Protein Urine Glucose (UA) Urine Ketones Urine Blood Urine Nitrite Urine Bilirubin Urine Urobilinogen Ur Leukocyte Esterase Urine Comment Nasal Screen MRSA (PCR) Digoxin Adenovirus (PCR) B. pertussis DNA (PCR) B.parapertussis DNA PCR C. pneumoniae DNA (PCR) Coronavirus OC43 (PCR) Coronavirus HKU1 (PCR) Coronavirus 229E (PCR) SARS-CoV-2 (PCR) Coronavirus NL63 (PCR) Human Metapneumovir PCR Influenza Type A (PCR) Influenza Type B (PCR) M. pneumoniae (PCR) Parainfluenza 1 (PCR) Parainfluenza 2 (PCR) Parainfluenza 3 (PCR) Parainfluenza 4 (PCR) RSV (PCR) Entero/Rhino (PCR) 04/28/25 04/28/25 04/28/25 15:48 18:12 22:30 WBC RBC Hgb POC Hgb Hct POC Hct MCV MCH MCHC RDW Std Deviation RDW Coeff of Demarcus Plt Count MPV Immature Gran % (Auto) Neut % (Auto) Lymph % (Auto) Nicholas % (Auto) Eos % (Auto) Baso % (Auto) Neut # (Auto) Lymph # (Auto) Nicholas # (Auto) Eos # (Auto) Baso # (Auto) Immature Gran # (Auto) ESR PT INR APTT PTT Ratio Heparin Anti-Xa, Unfract POC Sodium Sodium POC Potassium Potassium POC Chloride Chloride Carbon Dioxide POC Total CO2 Anion Gap POC Anion Gap POC BUN BUN Creatinine POC Creatinine Est Cr Clr Drug Dosing eGFR BUN/Creatinine Ratio Glucose POC Glucose 139 H POC Glucose (other) Calcium POC Ioniz Calcium Madelin Phosphorus Magnesium Total Bilirubin AST ALT Alkaline Phosphatase Troponin I High Sens 30921.3 H* D 04242.3 H* C-Reactive Protein B-Natriuretic Peptide Total Protein Albumin Globulin Albumin/Globulin Ratio TSH Urine Color Urine Appearance Urine pH Ur Specific Union Urine Protein Urine Glucose (UA) Urine Ketones Urine Blood Urine Nitrite Urine Bilirubin Urine Urobilinogen Ur Leukocyte Esterase Urine Comment Nasal Screen MRSA (PCR) Digoxin Adenovirus (PCR) B. pertussis DNA (PCR) B.parapertussis DNA PCR C. pneumoniae DNA (PCR) Coronavirus OC43 (PCR) Coronavirus HKU1 (PCR) Coronavirus 229E (PCR) SARS-CoV-2 (PCR) Coronavirus NL63 (PCR) Human Metapneumovir PCR Influenza Type A (PCR) Influenza Type B (PCR) M. pneumoniae (PCR) Parainfluenza 1 (PCR) Parainfluenza 2 (PCR) Parainfluenza 3 (PCR) Parainfluenza 4 (PCR) RSV (PCR) Entero/Rhino (PCR) 04/28/25 04/29/25 04/29/25 23:47 04:23 11:38 WBC 7.99 RBC 4.17 L Hgb 13.3 L POC Hgb Hct 38.6 L POC Hct MCV 92.6 MCH 31.9 MCHC 34.5 RDW Std Deviation 47.0 H RDW Coeff of Demarcus 13.7 Plt Count 137 MPV 11.1 Immature Gran % (Auto) Neut % (Auto) Lymph % (Auto) Nicholas % (Auto) Eos % (Auto) Baso % (Auto) Neut # (Auto) Lymph # (Auto) Nicholas # (Auto) Eos # (Auto) Baso # (Auto) Immature Gran # (Auto) ESR PT INR APTT PTT Ratio Heparin Anti-Xa, Unfract 0.51 POC Sodium Sodium 136 POC Potassium Potassium 4.1 POC Chloride Chloride 100 Carbon Dioxide 28 POC Total CO2 Anion Gap 8 POC Anion Gap POC BUN BUN 29 H Creatinine 1.59 H POC Creatinine Est Cr Clr Drug Dosing 43.8 eGFR 43.89 BUN/Creatinine Ratio 18.2 Glucose 129 H POC Glucose 116 H POC Glucose (other) Calcium 8.7 POC Ioniz Calcium Madelin Phosphorus Magnesium 2.4 Total Bilirubin 1.0 AST 132 H ALT 24 Alkaline Phosphatase 46 Troponin I High Sens 83577.6 H* C-Reactive Protein B-Natriuretic Peptide Total Protein 6.1 Albumin 3.3 L Globulin 2.8 Albumin/Globulin Ratio 1.2 TSH Urine Color Urine Appearance Urine pH Ur Specific Union Urine Protein Urine Glucose (UA) Urine Ketones Urine Blood Urine Nitrite Urine Bilirubin Urine Urobilinogen Ur Leukocyte Esterase Urine Comment Nasal Screen MRSA (PCR) Digoxin 1.2 Adenovirus (PCR) B. pertussis DNA (PCR) B.parapertussis DNA PCR C. pneumoniae DNA (PCR) Coronavirus OC43 (PCR) Coronavirus HKU1 (PCR) Coronavirus 229E (PCR) SARS-CoV-2 (PCR) Coronavirus NL63 (PCR) Human Metapneumovir PCR Influenza Type A (PCR) Influenza Type B (PCR) M. pneumoniae (PCR) Parainfluenza 1 (PCR) Parainfluenza 2 (PCR) Parainfluenza 3 (PCR) Parainfluenza 4 (PCR) RSV (PCR) Entero/Rhino (PCR) 04/29/25 04/29/25 04/29/25 11:41 16:26 20:52 WBC RBC Hgb POC Hgb Hct POC Hct MCV MCH MCHC RDW Std Deviation RDW Coeff of Demarcus Plt Count MPV Immature Gran % (Auto) Neut % (Auto) Lymph % (Auto) Nicholas % (Auto) Eos % (Auto) Baso % (Auto) Neut # (Auto) Lymph # (Auto) Nicholas # (Auto) Eos # (Auto) Baso # (Auto) Immature Gran # (Auto) ESR PT INR APTT PTT Ratio Heparin Anti-Xa, Unfract POC Sodium Sodium POC Potassium Potassium POC Chloride Chloride Carbon Dioxide POC Total CO2 Anion Gap POC Anion Gap POC BUN BUN Creatinine POC Creatinine Est Cr Clr Drug Dosing eGFR BUN/Creatinine Ratio Glucose POC Glucose 153 H 127 H 116 H POC Glucose (other) Calcium POC Ioniz Calcium Madelin Phosphorus Magnesium Total Bilirubin AST ALT Alkaline Phosphatase Troponin I High Sens C-Reactive Protein B-Natriuretic Peptide Total Protein Albumin Globulin Albumin/Globulin Ratio TSH Urine Color Urine Appearance Urine pH Ur Specific Union Urine Protein Urine Glucose (UA) Urine Ketones Urine Blood Urine Nitrite Urine Bilirubin Urine Urobilinogen Ur Leukocyte Esterase Urine Comment Nasal Screen MRSA (PCR) Digoxin Adenovirus (PCR) B. pertussis DNA (PCR) B.parapertussis DNA PCR C. pneumoniae DNA (PCR) Coronavirus OC43 (PCR) Coronavirus HKU1 (PCR) Coronavirus 229E (PCR) SARS-CoV-2 (PCR) Coronavirus NL63 (PCR) Human Metapneumovir PCR Influenza Type A (PCR) Influenza Type B (PCR) M. pneumoniae (PCR) Parainfluenza 1 (PCR) Parainfluenza 2 (PCR) Parainfluenza 3 (PCR) Parainfluenza 4 (PCR) RSV (PCR) Entero/Rhino (PCR) 04/30/25 04/30/25 07:30 07:42 WBC RBC Hgb POC Hgb Hct POC Hct MCV MCH MCHC RDW Std Deviation RDW Coeff of Demarcus Plt Count MPV Immature Gran % (Auto) Neut % (Auto) Lymph % (Auto) Nicholas % (Auto) Eos % (Auto) Baso % (Auto) Neut # (Auto) Lymph # (Auto) Nicholas # (Auto) Eos # (Auto) Baso # (Auto) Immature Gran # (Auto) ESR PT INR APTT PTT Ratio Heparin Anti-Xa, Unfract < 0.10 L POC Sodium Sodium Cancelled POC Potassium Potassium Cancelled POC Chloride Chloride Cancelled Carbon Dioxide Cancelled POC Total CO2 Anion Gap Cancelled POC Anion Gap POC BUN BUN Cancelled Creatinine Cancelled POC Creatinine Est Cr Clr Drug Dosing Cancelled eGFR Cancelled BUN/Creatinine Ratio Cancelled Glucose Cancelled POC Glucose POC Glucose (other) Calcium Cancelled POC Ioniz Calcium Madelin Phosphorus Magnesium Cancelled Total Bilirubin Cancelled AST Cancelled ALT Cancelled Alkaline Phosphatase Cancelled Troponin I High Sens C-Reactive Protein B-Natriuretic Peptide Total Protein Cancelled Albumin Cancelled Globulin Cancelled Albumin/Globulin Ratio Cancelled TSH Urine Color Urine Appearance Urine pH Ur Specific Union Urine Protein Urine Glucose (UA) Urine Ketones Urine Blood Urine Nitrite Urine Bilirubin Urine Urobilinogen Ur Leukocyte Esterase Urine Comment Nasal Screen MRSA (PCR) Digoxin Adenovirus (PCR) B. pertussis DNA (PCR) B.parapertussis DNA PCR C. pneumoniae DNA (PCR) Coronavirus OC43 (PCR) Coronavirus HKU1 (PCR) Coronavirus 229E (PCR) SARS-CoV-2 (PCR) Coronavirus NL63 (PCR) Human Metapneumovir PCR Influenza Type A (PCR) Influenza Type B (PCR) M. pneumoniae (PCR) Parainfluenza 1 (PCR) Parainfluenza 2 (PCR) Parainfluenza 3 (PCR) Parainfluenza 4 (PCR) RSV (PCR) Entero/Rhino (PCR) Diagnostic Findings Chest X-Ray 04/28/25 09:46 Technique: A frontal view of the chest was obtained Findings: There suspected mild pulmonary edema. There is more focal right lower lobe opacity. The heart is mildly enlarged. No pleural effusion or pneumothorax is seen. There is biapical pleural thickening No fracture is noted. No foreign body is seen Impression: 1. Mild cardiomegaly and mild pulmonary edema 2. Possible concurrent right lower lobe pneumonia ACT 112: Positive. There are findings on this exam that require communication between the performing entity and the patient following Patient Test Result Information Act ([place] ACT 112) guidelines. Electronically signed by Tyler Perez 04-28-2025 10:22 AM PG Care Time/CCT Total # of Minutes Spent Total Time Spent with Patient: Total time spent is greater than 50% in coordination of care (as documented) at patient's floor/unit and/or counseling patient: Coding Level of Care Code 26942 SUB INP/OBS CARE 1/25MIN Diagnoses A-fib I48.91 V tach I47.20 COVID U07.1 Hypoxic respiratory failure J96.91 Pneumonia J18.9 Time Spent (min) 24
--- NOTE | 2025-04-30 10:03 | Pre Anesthesia Assessment ---
Date of Service April 30, 2025 Pre Sedation Assessment Vital Signs Temp Pulse Pulse Resp BP Pulse Ox O2 Del Method 04/30/25 08:10 83 18 140/85 95 Nasal Cannula 04/30/25 04:08 36.6 C 90 18 120/70 97 Nasal Cannula 04/29/25 23:36 36.9 C 92 H 18 132/77 92 Nasal Cannula 04/29/25 22:02 98 H 04/29/25 20:57 36.5 C 77 18 120/82 98 Nasal Cannula 04/29/25 20:00 Nasal Cannula 04/29/25 15:00 Nasal Cannula 04/29/25 14:30 102 H 04/29/25 14:08 36.5 C 104 H 20 120/66 96 Nasal Cannula O2 Flow Rate 04/30/25 08:10 1 04/30/25 04:08 04/29/25 23:36 2 04/29/25 22:02 04/29/25 20:57 04/29/25 20:00 2 04/29/25 15:00 2 04/29/25 14:30 04/29/25 14:08 2 Cardiovascular Additional Comments: Regular rate and rhythm. S4 gallop. Grade 3/6 systolic murmur. Respiratory Additional Comments: Diminished air movement. Crackles, coarse. Pre-Sedation Airway Assessment Smoking Status: Unknown if ever smoked Mallampati 3 ASA 4 Notes The planned sedation has been discussed with the patient. Informed Consent was obtained. I have identified the patient, determined the appropriateness of sedation and have assessed the patient immediately prior to the procedure. All medicine(s) and interventions are by my order.
[2025-04-30] MEDS: HEPARIN (PORCINE) 1000 UNIT/ML 10 ML (CATH LAB USE ONLY) ONE (10:38)
[2025-04-30] MEDS: NITROGLYCERIN/D5W 100MCG/ML 20ML SYR ONE (10:39)
[2025-04-30] MEDS: OPTIRAY 350 ONE (10:39)
[2025-04-30] MEDS: MIDAZOLAM HCL 1 MG/ML 2ML VIAL ONE (10:39)
[2025-04-30] MEDS: niCARdipine 2,000 MCG/20 ML SYR ONE (10:40)
--- NOTE | 2025-04-30 10:44 | Post Anesthesia Assessment ---
Date of Service April 30, 2025 Post Sedation Assessment Vital Signs Temp Pulse Pulse Resp BP Pulse Ox O2 Del Method 04/30/25 08:10 83 18 140/85 95 Nasal Cannula 04/30/25 04:08 36.6 C 90 18 120/70 97 Nasal Cannula 04/29/25 23:36 36.9 C 92 H 18 132/77 92 Nasal Cannula 04/29/25 22:02 98 H 04/29/25 20:57 36.5 C 77 18 120/82 98 Nasal Cannula 04/29/25 20:00 Nasal Cannula 04/29/25 15:00 Nasal Cannula 04/29/25 14:30 102 H 04/29/25 14:08 36.5 C 104 H 20 120/66 96 Nasal Cannula O2 Flow Rate 04/30/25 08:10 1 04/30/25 04:08 04/29/25 23:36 2 04/29/25 22:02 04/29/25 20:57 04/29/25 20:00 2 04/29/25 15:00 2 04/29/25 14:30 04/29/25 14:08 2 Recovery Score Activity: Moves 4 extremities Respiration: Deep Breath/Cough Circulation: +/-20% PreAnes Value Consciousness: Fully Awake Oxygen Saturation: > 92% On Room Air Discharge Sedation Level of Care: Fast Track Phase II Post Sedation Plan On clinical assessment, the patient appears to have tolerated the sedation without complications. Patient is recovering as anticipated. Patient will continue to be monitored by nursing and may be discharged when sedation discharge criteria are met per below protocol. Upon Completions of procedure up to 15 minutes continue every 5 minute vital signs and the P.A.R. score; then discharge to a Phase I or Fast Track to Phase II per the following guidelines: * Discharge Patient to appropriate Phase II area if PAR is 8 or greater or return to pre- procedure baseline. The post - procedure orders will be as directed. * If PAR score is less than 8 or not return to pre-procedure baseline then patient will follow Phase I monitoring till PAR is reached for Phase II. The Phase I may be done in procedure room or may call to secure a Phase I area. * If naloxone or flumazenil are used for reversal, hold in Phase I for continued monitoring from when last reversal dose was given for a minimum of 60 minutes or longer pending the nurse and/or physician discretion of patient condition before discharge to Phase II. Please call the Sedation Physician to re-evaluate and complete post-note for discharge to Phase II area. Do NOT discharge from procedure sedation or Phase 1 until post- sedation evaluation note is complete by procedure /sedation MD Sedation Discharge Instructions to be given to the patient at discharge to home. [facility] [place]odes ([place]arges) Indication for Procedure Indication for procedure: cardiomyopathy NSTEMI severe valve disease
--- NOTE | 2025-04-30 10:56 | Cardiac Catheterization ---
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 Cardiac Status Clinical evaluation leading to the procedure CAD Presenation: Non STEMI Anginal Classification: CCS IV Heart Failure: NYHA Class: CCS IV Cardiogenic Shock within 24 Hours: No Cardiac Arrest within 24 Hours: No Imaging Studies Past 6 Months: Yes Stress Studies Past 6 Months: No Coronary Anatomy Dominant: Right Left Main (% Stenosis): Ostial (50%) LAD (% Stenosis): Mid (40%) D1 (% Stenosis): Normal D2 (% Stenosis): Normal D3 (% Stenosis): Normal Circumflex (% Stenosis): Normal OM1 (% Stenosis): Normal OM2 (% Stenosis): Normal L PL1 (% Stenosis): Normal RCA (% Stenosis): Normal R PDA (% Stenosis): Normal R PL1 (% Stenosis): Normal Diagnostic Physicians Name: Octavio Lynn MD, PhD Closure Device Percutaneous Entry Location: Radial Closure Device: Radial Band Recommendations: Medical Therapy and/or Counseling, CABG and Valve Replacement Cardiac Cath Procedure Full Procedure Date April 30, 2025 Pre-Procedure Diagnosis Pre-Procedure Diagnosis: Non STEMI, Valvular Disease and Cardiomyopathy AUC Score AUC Score: 09 Post-Procedure Diagnosis Post-Procedure Diagnosis: Severe CAD Procedure(s) Performed Procedure(s) Performed: Coronary Angiography and Ultrasound Guided Vascular Access Molder Octavio Lynn MD, PhD Estimated Blood Loss Estimated Blood Loss: 3 cc Medication(s) Medication(s): Fentanyl, Heparin, Lidocaine 1%, Nicardipine, Nitroglycerin and Versed Summary of Findings Brief description: Patient was brought to the cardiac catheterization suite where he was shaved and prepped in a sterile fashion. Sedated using IV Versed and fentanyl. Soft tissues of the right wrist were anesthetized using 2 mL of 1% Xylocaine. Using ultrasound for guidance (image saved), the right radial artery was accessed and a 6 [place] radial artery glide sheath was placed. Patient was provided anticoagulation with IV heparin and antispasmodics including nicardipine and nitroglycerin. All catheters were advanced and exchanged over a 0.035 J-tip wire. Left coronary angiography in orthogonal views with a 5 [place] JL 3.5 diagnostic catheter. Right coronary angiography in orthogonal views with a 5 [place] Rhodhiss 4 diagnostic catheter. Diagnostic catheters were removed. Radial artery sheath was removed. Hemostasis was obtained using a TR band. Patient was hemodynamically stable and asymptomatic. He is returned to the recovery area. This ended the case. Coronary angiography findings: LMT-large caliber vessel bifurcating into LAD and circumflex. Ostial to proximal 50% stenosis. Significant pressure dampening on engagement with ventricularization of the pressure waveform. [id number] and transapical vessel. Gives a large branching D1, large branching D2, medium caliber D3 and D4, and small caliber D5 and D6. Proximal LAD without disease. Mid vessel has a long eccentric 40% stenosis. The remainder of the LAD and its branches have only mild luminal irregularities. [id number] and nondominant. Travels in the AV groove where it gives a large caliber high rising OM1, a medium caliber OM 2, and distally terminates as a small caliber posterolateral branch. The proximal and mid circumflex are large in caliber but after the second obtuse marginal the distal AV groove vessel is small. There is no more than mild luminal irregularities in the circumflex and its branches. RCA-this is large caliber and dominant. Distally bifurcates into the PDA large PDA and large multi branching posterolateral. No more than mild luminal irregularities in the RCA and its branches. Summary: 1. 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 High risk findings including ventricularization and pressure dampening. Suspect the left main disease significantly contributes to his cardiomyopathy. 2. Patient has known severe valvular heart disease. Severe cardiomyopathy. Recommend referral to tertiary center regarding valve replacement/repair and bypass for his left main disease. 3. 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 Hemodynamics Rest Ao:: 105/78 mmHg Final Ao: 73/46 mmHg LV: Not performed Recommendations Recommendations: Medical Therapy and/or Counseling, CABG and Valve Replacement Radiation Exposure (mGy) 769 mGy, fluoroscopy time 2.4 minutes Contrast (mls) 65 cc Anesthesia 1 mg Versed, 25 mcg fentanyl. 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 Any exceptions are noted below. [facility] [place] Procedure Codes Cardiac Catheterization Procedure 1: Cardiovascular Cath Procedures: 40794 Coronaries Therapeutic Services & Ancillary Procedure 1: Cardiovascular Tx and Anc Procedures: 55322 Ultrasonic Guidance Vascular Access Moderate Sedation Procedure 1: Sedation/Anesthesia: 95660 Mod Sedation by the same physician;Init15 Min Child Age 5 & Up (Initial 15 minutes, start time 1021, end time 1036) PG Care Time/CCT Total # of Minutes Spent Total Time Spent with Patient: Total time spent is greater than 50% in coordination of care (as documented) at patient's floor/unit and/or counseling patient:
[2025-04-30] MEDS: PHENYLEPHRINE 100MCG/ML 5ML SYR ONE (11:09)
[2025-04-30] MEDS: AMIODARONE 360MG / 200ML D5W IV ONE ×2 (11:09)
[2025-04-30 12:09] LABS: Hematocrit (blood only) 44.3 % (42.0-52.0); Hemoglobin 14.8 g/dl (14.0-18.0); Mean Corpuscular Hemoglobin 31.1 pg (25.0-34.0); Mean Corpuscular Volume 93.1 fL (80.0-100.0); Platelet Count 200 K/uL (130-400); RDW Standard Deviation 46.2 fL (36.4-46.3); Red Blood Count 4.76 M/uL (4.70-6.10); White Blood Count 10.66 K/ul (4.8-10.8)
[2025-04-30 12:21] LABS: Alanine Aminotransferase 19.0 U/L (7-52); Albumin Globulin Ratio 1.4 (0.9-2); Albumin Level 3.8 gm/dl (3.4-5.0); Alkaline Phosphatase 47.0 U/L (34-104); Anion Gap 10.0 (3-11); Bilirubin,Total 1.2 mg/dl (0.2-1.0); Blood Urea Nitrogen 35.0 mg/dl (6-23); Calcium 8.7 mg/dl (8.6-10.3); Carbon Dioxide 27.0 mmol/L (21-32); Chloride 100.0 mmol/L (98-107); Creatinine Clr Calc Pharmacy 51.6 ml/min; Globulin 2.7 gm/dl (2.5-4.0); Glucose 138.0 mg/dl (70-99(Fasting)); Magnesium 2.2 mg/dl (1.7-2.4); Potassium 3.5 mmol/L (3.5-5.1); Sodium 137.0 mmol/L (136-145); Total Protein 6.5 gm/dl (6.0-8.3)
--- NOTE | 2025-04-30 13:11 | Electrocardiogram Report ---
Test Reason : Blood Pressure : */* mmHG Vent. Rate : 109 BPM Atrial Rate : * BPM P-R Int : * ms QRS Dur : 100 ms QT Int : 326 ms P-R-T Axes : * 50 140 degrees QTcB Int : 439 ms Atrial fibrillation with rapid ventricular response Minimal voltage criteria for LVH, may be normal variant ( Sokolow-[place] ) Cannot rule out Anterior infarct , age undetermined T wave abnormality, consider lateral ischemia Abnormal ECG When compared with ECG of 27-Apr-2025 14:57, Questionable change in QRS axis Non-specific change in ST segment in Inferior leads ST no longer depressed in Lateral leads Confirmed by Chris Caballero ([id number]) on 04/30/2025 1:10:43 PM Referred By: [facility] Confirmed By: Chris Caballero
--- NOTE | 2025-04-30 14:18 | Electrocardiogram Report ---
Test Reason : Blood Pressure : */* mmHG Vent. Rate : 114 BPM Atrial Rate : * BPM P-R Int : * ms QRS Dur : 100 ms QT Int : 376 ms P-R-T Axes : * 59 109 degrees QTcB Int : 518 ms Atrial fibrillation with rapid ventricular response Cannot rule out Anterior infarct (cited on or before 28-Apr-2025) Prolonged QT Abnormal ECG When compared with ECG of 28-Apr-2025 02:40, (unconfirmed) Serial changes of Anterior infarct Present Confirmed by Chris Caballero ([id number]) on 04/30/2025 2:18:00 PM Referred By: [facility] Confirmed By: Chris Caballero
--- NOTE | 2025-04-30 15:17 | Infectious Disease Consult ---
Date of Consultation April 30, 2025 Assessment & Plan (1) COVID: (2) Hypoxic respiratory failure: (3) CHF exacerbation: Plan This is a 80-year-old man with a history of CAD, CHF, aortic stenosis, CKD, depression, psychosis, currently incarcerated presents with shortness of breath cough for 3 to 4 days as well as chest discomfort on 04/27/2025. On admission he was afebrile, hypoxic with O2 sats of 81% on room air and required 15 L O2 via Ventimask, in A-fib and started on amiodarone infusion. Labs: WBC 7.85, ESR 51, BUN 15, creatinine 1.43, CRP 2.60,troponin 523.2--> [id number]. Respiratory viral panel positive for COVID. Chest x-ray with no acute findings. CTA chest with no pulmonary embolism. CHF versus pulmonary edema versus pneumonia. Repeat chest x-ray shows possible concurrent right lower lobe pneumonia. Transthoracic echocardiogram shows an EF of 25 to 30%, severe valvular aortic stenosis, moderate aortic regurgitation, moderate MR. He was started on antibiotics or possible pneumonia, remdesivir and Decadron. He was valuated by cardiology and underwent left heart cardiac catheterization. He remains on amiodarone. He is on 2 L nasal cannula. Infectious disease consulted for COVID An E consult without video evaluation completed as video/camera is not working Microbiology 04/27 RVPCOVID-positive Antibiotics Ceftriaxone 04/27 Cefepime 04/27current Zithromax urrent Doxycycline 04/27 Remdesivir urrent # COVID infection # Cardiomyopathy # Atrial fibrillation, V. tach Discussion: Patient presents with shortness of breath, hypoxia and found to be in A-fib. Respiratory status likely due to a combination of CHF and COVID infection. I think it is less likely that he has concomitant bacterial pneumonia. Recommendations: Complete 5 days of remdesivir Would discontinue cefepime and azithromycin. Thank you for this consult. ID will sign off. Man Marrufo MD, MPH Infectious Disease [facility] Call [phone] with questions Consultation Information This patient recommendation is based on a telemedicine consult request which was completed asynchronously through chart review and information provided by the primary physician. The patient was not seen or examined today. The evaluation is consultative in nature and all patient care and treatment decisions can either be accepted or rejected by the patient's primary hospital-based treating physic shaunna using their own independent medical judgment for their patient. Oxygen Therapy Technician contact information: Please call [facility] Call Center . (Phone Number For Physician Use Only) Time Spent Reviewing Chart: 31+ minutes History of Present Illness Reason for Consultation: Covid Requesting Physician: David Koch DO Attending Physician: David Koch DO History of Present Illness This is a 80-year-old man with a history of CAD, CHF, aortic stenosis, CKD, depression, psychosis, currently incarcerated presents with shortness of breath cough for 3 to 4 days as well as chest discomfort on 04/27/2025. On admission he was afebrile, hypoxic with O2 sats of 81% on room air and required 15 L O2 via Ventimask, in A-fib and started on amiodarone infusion. Labs: WBC 7.85, ESR 51, BUN 15, creatinine 1.43, CRP 2.60,troponin 523.2--> [id number]. Respiratory viral panel positive for COVID. Chest x-ray with no acute f indings. CTA chest with no pulmonary embolism. CHF versus pulmonary edema versus pneumonia. Repeat chest x-ray shows possible concurrent right lower lobe pneumonia. Transthoracic echocardiogram shows an EF of 25 to 30%, severe valvular aortic stenosis, moderate aortic regurgitation, moderate MR. He was started on antibiotics or possible pneumonia, remdesivir and Decadron. He was valuated by cardiology and underwent left heart cardiac catheterization. He remains on amiodarone. He is on 2 L nasal cannula. Infectious disease consulted for COVID An E consult without video evaluation completed as video/camera is not working Allergies Allergy/AdvReac Type Severity Reaction Status Date / Time No Known Drug Allergies Allergy Unknown Unverified 10/09/24 13:44 Home Medications Medication Instructions Recorded Confirmed Type amlodipine 10 mg tablet 10 mg PO DAILY 11/20/22 10/09/24 History aspirin 81 mg tablet,delayed 81 mg PO DAILY 11/20/22 10/09/24 History release (Adult Low Dose Aspirin) atenolol 50 mg tablet 50 mg PO DAILY 11/20/22 10/09/24 History lisinopril 40 mg tablet 40 mg PO DAILY 11/20/22 10/09/24 History rosuvastatin 5 mg tablet 5 mg PO DAILY 11/20/22 10/09/24 History vit B complex and vit C 1 tab PO DAILY 11/20/22 10/09/24 History no.24-ferrous fum 66 mg-folic 1,000 mcg tablet (Nephron FA) thiothixene 2 mg capsule See Rx Instructions PO .COMPLEX 01/19/23 10/09/24 History bumetanide 2 mg tablet 2 mg PO DAILY 10/09/24 10/09/24 History dapagliflozin propanediol 10 mg 10 mg PO DAILY 10/09/24 10/09/24 History tablet (Farxiga) omeprazole 20 mg capsule,delayed 20 mg PO DAILY 10/09/24 10/09/24 History release trihexyphenidyl 5 mg tablet 5 mg PO TID 10/09/24 10/09/24 History Patient History Medical History Cellulitis Major depressive disorder with psychotic features Degenerative disc disease Social History Smoking Status: Unknown if ever smoked Tobacco Type: Cigarettes Hx Alcohol Use: No Hx Substance Use: No Preferred Language: Georgian Communication Ability: Effective Visual Impairment: No Limitations Hearing Ability: Normal 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 Beliefs That Will Affect Care: None Current Living Situation: Other Current Living Situation Comment: [facility] [place] Feels Safe at Home: Yes Results & Data Vital Signs (Past 12 Hours) Vital Signs Temp Pulse Pulse Resp BP Pulse Ox O2 Del Method 04/30/25 14:08 80 04/30/25 14:02 37.2 C 93 H 16 109/76 100 Nasal Cannula 04/30/25 13:02 37.0 C 84 15 106/66 99 Nasal Cannula 04/30/25 12:02 37.1 C 15 101/64 95 Nasal Cannula 04/30/25 11:20 112 H 04/30/25 11:16 37.0 C 103 H 16 111/74 2 L Nasal Cannula 04/30/25 11:02 37.0 C 97 H 16 129/71 96 Nasal Cannula 04/30/25 08:10 83 18 140/85 95 Nasal Cannula 04/30/25 04:08 36.6 C 90 18 120/70 97 Nasal Cannula O2 Flow Rate 04/30/25 14:08 04/30/25 14:02 2 04/30/25 13:02 2 04/30/25 12:02 2 04/30/25 11:20 04/30/25 11:16 2 04/30/25 11:02 2 04/30/25 08:10 1 04/30/25 04:08 Laboratory Results Laboratory Results - last 48 hr 04/27/25 04/28/25 04/28/25 17:59 15:48 18:12 WBC RBC Hgb Hct MCV MCH MCHC RDW Std Deviation RDW Coeff of Demarcus Plt Count MPV Heparin Anti-Xa, Unfract Sodium Potassium Chloride Carbon Dioxide Anion Gap BUN Creatinine Est Cr Clr Drug Dosing eGFR BUN/Creatinine Ratio Glucose POC Glucose 139 H Calcium Magnesium Total Bilirubin AST ALT Alkaline Phosphatase Troponin I High Sens 65869.3 H* D Total Protein Albumin Globulin Albumin/Globulin Ratio Digoxin Urine Legionella Ag SEE NOTE 04/28/25 04/28/25 04/29/25 22:30 23:47 04:23 WBC 7.99 RBC 4.17 L Hgb 13.3 L Hct 38.6 L MCV 92.6 MCH 31.9 MCHC 34.5 RDW Std Deviation 47.0 H RDW Coeff of Demarcus 13.7 Plt Count 137 MPV 11.1 Heparin Anti-Xa, Unfract 0.51 Sodium 136 Potassium 4.1 Chloride 100 Carbon Dioxide 28 Anion Gap 8 BUN 29 H Creatinine 1.59 H Est Cr Clr Drug Dosing 43.8 eGFR 43.89 BUN/Creatinine Ratio 18.2 Glucose 129 H POC Glucose 116 H Calcium 8.7 Magnesium 2.4 Total Bilirubin 1.0 AST 132 H ALT 24 Alkaline Phosphatase 46 Troponin I High Sens 00436.3 H* 94544.6 H* Total Protein 6.1 Albumin 3.3 L Globulin 2.8 Albumin/Globulin Ratio 1.2 Digoxin Urine Legionella Ag 04/29/25 04/29/25 04/29/25 11:38 11:41 16:26 WBC RBC Hgb Hct MCV MCH MCHC RDW Std Deviation RDW Coeff of Demarcus Plt Count MPV Heparin Anti-Xa, Unfract Sodium Potassium Chloride Carbon Dioxide Anion Gap BUN Creatinine Est Cr Clr Drug Dosing eGFR BUN/Creatinine Ratio Glucose POC Glucose 153 H 127 H Calcium Magnesium Total Bilirubin AST ALT Alkaline Phosphatase Troponin I High Sens Total Protein Albumin Globulin Albumin/Globulin Ratio Digoxin 1.2 Urine Legionella Ag 04/29/25 04/30/25 04/30/25 20:52 07:30 07:42 WBC RBC Hgb Hct MCV MCH MCHC RDW Std Deviation RDW Coeff of Demarcus Plt Count MPV Heparin Anti-Xa, Unfract < 0.10 L Sodium Cancelled Potassium Cancelled Chloride Cancelled Carbon Dioxide Cancelled Anion Gap Cancelled BUN Cancelled Creatinine Cancelled Est Cr Clr Drug Dosing Cancelled eGFR Cancelled BUN/Creatinine Ratio Cancelled Glucose Cancelled POC Glucose 116 H Calcium Cancelled Magnesium Cancelled Total Bilirubin Cancelled AST Cancelled ALT Cancelled Alkaline Phosphatase Cancelled Troponin I High Sens Total Protein Cancelled Albumin Cancelled Globulin Cancelled Albumin/Globulin Ratio Cancelled Digoxin Urine Legionella Ag 04/30/25 04/30/25 11:31 11:40 WBC 10.66 RBC 4.76 Hgb 14.8 Hct 44.3 MCV 93.1 MCH 31.1 MCHC 33.4 RDW Std Deviation 46.2 RDW Coeff of Demarcus 13.6 Plt Count 200 MPV 10.6 Heparin Anti-Xa, Unfract Sodium 137 Potassium 3.5 Chloride 100 Carbon Dioxide 27 Anion Gap 10 BUN 35 H Creatinine 1.35 Est Cr Clr Drug Dosing 51.6 eGFR 53.41 BUN/Creatinine Ratio 25.9 H Glucose 138 H POC Glucose 175 H Calcium 8.7 Magnesium 2.2 Total Bilirubin 1.2 H AST 62 H ALT 19 Alkaline Phosphatase 47 Troponin I High Sens Total Protein 6.5 Albumin 3.8 Globulin 2.7 Albumin/Globulin Ratio 1.4 Digoxin Urine Legionella Ag Diagnostic Findings Chest X-Ray 04/27/25 15:00 XR chest 1V portable CLINICAL HISTORY: afib COMPARISON STUDY: None FINDINGS: There is mild cardiomegaly without pulmonary vascular congestion. No consolidation or pleural effusion. No pneumothorax. IMPRESSION: No acute findings. ACT 112: Negative or not required by law. Electronically signed by: Toni Thomas M.D. 04/27/2025 3:15 PM Chest CTA 04/27/25 15:08 CT angio chest PE protocol CT DOSE: 898.99 mGy.cm HISTORY: Dyspnea, afib, PNA. TECHNIQUE: Multiple CTA images of the chest were obtained after the intravenous administration of 120 ml Optiray. Coronal and sagittal MIPS were obtained from the axial data set and were submitted for review. All measurements were obtained according to NASCET criteria. A dose lowering technique was utilized adhering to the principles of ALARA. COMPARISON STUDY: None FINDINGS: There is motion artifact due to breathing. There are mild airway secretions. There is moderate cardiomegaly with mild prominence of the pulmonary vasculature consistent with CHF. There are trace bilateral pleural effusions. There is septal thickening in the lungs and patchy groundglass opacity at the mid and lower lungs which could represent pulmonary edema or pneumonia. There is bandlike opacity in the lung apices which likely represents scarring. No pneumothorax. No enlarged adenopathy. No thoracic aortic aneurysm. No pulmonary embolism seen. No acute osseous findings. IMPRESSION: 1. No pulmonary embolism. 2. CHF with pulmonary edema versus pneumonia. ACT 112: Negative or not required by law. The above report was generated using voice recognition software. It may contain grammatical, syntax or spelling errors. Electronically signed by: Toni Thomas M.D. 04/27/2025 3:45 PM Chest X-Ray 04/28/25 09:46 Technique: A frontal view of the chest was obtained Findings: There suspected mild pulmonary edema. There is more focal right lower lobe opacity. The heart is mildly enlarged. No pleural effusion or pneumothorax is seen. There is biapical pleural thickening No fracture is noted. No foreign body is seen Impression: 1. Mild cardiomegaly and mild pulmonary edema 2. Possible concurrent right lower lobe pneumonia ACT 112: Positive. There are findings on this exam that require communication between the performing entity and the patient following Patient Test Result Information Act ([place] ACT 112) guidelines. Electronically signed by Tyler Perez 04-28-2025 10:22 AM Medications Administered Home Medications Medication Instructions Recorded Confirmed Last Taken amlodipine 10 mg tablet 10 mg PO DAILY 11/20/22 10/09/24 Unknown aspirin 81 mg tablet,delayed 81 mg PO DAILY 11/20/22 10/09/24 Unknown release (Adult Low Dose Aspirin) atenolol 50 mg tablet 50 mg PO DAILY 11/20/22 10/09/24 Unknown lisinopril 40 mg tablet 40 mg PO DAILY 11/20/22 10/09/24 Unknown rosuvastatin 5 mg tablet 5 mg PO DAILY 11/20/22 10/09/24 Unknown vit B complex and vit C 1 tab PO DAILY 04/07/23 02/24/25 Unknown no.24-ferrous fum 66 mg-folic 1,000 mcg tablet (Nephron FA) thiothixene 2 mg capsule See Rx Instructions PO .COMPLEX 01/19/23 10/09/24 Unknown bumetanide 2 mg tablet 2 mg PO DAILY 10/09/24 10/09/24 Unknown dapagliflozin propanediol 10 mg 10 mg PO DAILY 10/09/24 10/09/24 Unknown tablet (Farxiga) omeprazole 20 mg capsule,delayed 20 mg PO DAILY 10/09/24 10/09/24 Unknown release trihexyphenidyl 5 mg tablet 5 mg PO TID 10/09/24 10/09/24 Unknown Active Medications Generic Name Dose Route Start Last Admin Trade Name Freq PRN Reason Stop Dose Admin Aspirin 81 mg 04/28/25 09:00 04/30/25 08:35 Aspirin 81 Mg Ectab PO 05/28/25 08:59 81 mg DAILY PB Administration Bumetanide 2 mg 04/28/25 09:00 04/30/25 08:37 Bumetanide 1 Mg Tab PO 05/28/25 08:59 2 mg DAILY PB Administration Guaifenesin 1,200 mg 04/27/25 21:00 04/30/25 08:35 Guaifenesin 600 Mg Tabcr PO 05/27/25 20:59 1,200 mg Q12 PB Administration Amiodarone HCl/Dextrose 360 mg in 200 mls @ 16.667 mls/hr 04/27/25 22:15 04/30/25 08:46 Nexterone / D5w IV 05/27/25 22:14 0.5 mg/min .Q12H PB 16.7 mls/hr Administration 0.5 MG/MIN Cefepime HCl 2,000 mg in 20 mls @ 5 mls/min 04/27/25 21:00 04/30/25 08:38 Maxipime 2000mg IV 05/02/25 20:59 5 mls/min Q12H PB Administration Protocol Heparin Sodium/Dextrose 25,000 units in 500 mls @ 0 mls/hr 04/27/25 17:30 04/30/25 04:02 Heparin 66239 Unit/500 Ml D5w IV 05/27/25 17:29 0 units/hr .Q0M PB 0 mls/hr Titration Protocol 0 UNITS/HR Remdesivir 100 mg/ Sodium 250 mls @ 250 mls/hr 04/29/25 12:00 04/30/25 13:37 Chloride IV 05/02/25 12:59 Infused Q24H PB Infusion Hydrocortisone Sodium 1 mls @ 4 mls/min 04/28/25 10:00 04/30/25 11:08 Succinate 50 mg/ Syringe IV 05/28/25 09:59 4 mls/min Q6H PB Administration Insulin Aspart 0 units 04/29/25 11:30 04/30/25 12:34 Insulin Aspart Per Unit Charge SC 05/29/25 11:29 7 units ACHS BP Administration Metoprolol Tartrate 12.5 mg 04/29/25 17:00 04/30/25 14:27 Metoprolol Tartrate 25 Mg Tab PO 05/29/25 16:59 12.5 mg TID PB Administration Ondansetron HCl 4 mg 04/27/25 21:23 04/27/25 21:36 Ondansetron Inj 2 Mg/Ml 2 Ml Vial IV 05/27/25 21:22 4 mg Q4H PRN Administration Nausea Pantoprazole Sodium 40 mg 04/28/25 09:00 04/30/25 08:36 Pantoprazole 40 Mg Tab PO 05/28/25 08:59 40 mg DAILY PB Administration Rosuvastatin Calcium 5 mg 04/28/25 09:00 04/30/25 08:35 Rosuvastatin Calcium 5 Mg Tab PO 05/28/25 08:59 5 mg DAILY PB Administration Thiothixene 3 mg 04/27/25 21:00 04/30/25 09:44 Thiothixene 1 Mg Cap PO 05/27/25 20:59 3 mg BID PB Administration Thiothixene 5 mg 04/27/25 21:00 04/30/25 08:35 Thiothixene 5 Mg Cap PO 05/27/25 20:59 5 mg BID PB Administration Trihexyphenidyl HCl 5 mg 04/27/25 18:30 04/30/25 12:35 Trihexyphenidyl Hcl 5 Mg Tab PO 05/27/25 18:29 5 mg TIDM PB Administration Vitamin B Complex/Folic Acid 1 cap 04/28/25 09:00 04/30/25 08:36 Nephrocaps PO 05/28/25 08:59 1 cap DAILY PB Administration
[2025-05-01 06:53] LABS: Hematocrit (blood only) 46.0 % (42.0-52.0); Hemoglobin 15.1 g/dl (14.0-18.0); Mean Corpuscular Hemoglobin 30.6 pg (25.0-34.0); Mean Corpuscular Volume 93.1 fL (80.0-100.0); Platelet Count 186 K/uL (130-400); RDW Standard Deviation 46.6 fL (36.4-46.3); Red Blood Count 4.94 M/uL (4.70-6.10); White Blood Count 10.18 K/ul (4.8-10.8)
[2025-05-01 07:15] LABS: Albumin Level 3.7 gm/dl (3.4-5.0); Anion Gap 12.0 (3-11); Bilirubin,Total 1.0 mg/dl (0.2-1.0); Calcium 8.7 mg/dl (8.6-10.3); Carbon Dioxide 24.0 mmol/L (21-32); Chloride 102.0 mmol/L (98-107); Potassium 3.8 mmol/L (3.5-5.1); Sodium 138.0 mmol/L (136-145)
[2025-05-01 07:24] LABS: Alanine Aminotransferase 18.0 U/L (7-52); Albumin Globulin Ratio 1.4 (0.9-2); Alkaline Phosphatase 45.0 U/L (34-104); Blood Urea Nitrogen 40.0 mg/dl (6-23); Creatinine Clr Calc Pharmacy 50.5 ml/min; Globulin 2.7 gm/dl (2.5-4.0); Glucose 113.0 mg/dl (70-99(Fasting)); Total Protein 6.4 gm/dl (6.0-8.3)
[2025-05-01] MEDS: AZITHROMYCIN 250 MG TAB PO SCH (08:46)
[2025-05-01] MEDS: Heparin IV Adult Wt-Based Standard *NO* INITIAL Bolus Protocol IV STA (11:13)
[2025-05-01] MEDS: HEPARIN 25000 UNIT/500 ML D5W 25,000 UNITS/500 ML BAG IV SCH (11:46)
--- NOTE | 2025-05-01 12:33 | Hospitalist Progress Note ---
Date of Service May 01, 2025 Assessment & Plan (1) A-fib: Plan: Mr.william maria is a 80 yo male, alf; with PMH of CAD, CHFpEF, aortic stenosis, mitral stenosis, CKD, depression with psychosis, hypertension on 04/27, presented from alf with cough, left side chest pain shortness of breath for 3-4 days, he been having coughing, shortness of breath for 3-4 days, also been having left side chest pain radiate into the forearm. he's was hypotensive, hypoxic needing 15-30 liter, and admitted to ICU he's was in A-fib and there is question of V-tach, started on amiodarone infusion, and heparin for ACS dose he's was started on remdesmivor for covid PNA, and maintain on cefepiome and doxycycyline 04/27, amiodarone, heparin for A-fib, ACS, cefepime and doxycycyline, needing 20- 30 liter informally spoke with [facility], they unable to determine appropriateness of remdemsivir 04/28, chest pain resolved; still on high flow oxygen, pulmonary started on remdemsivir on high flow, cardiology added low dose metoprolol 12.5 04/29, weaning to 3-4 liter oxygen, no chest pain , still on amiodarone and heparin 04/30/ cardiology plan for [facility] today; off heparin since 4am oxygen status stable, no chest pain, no shortness of breath 05/01; on room air; off IV antibiotics he was restarted on heparin drip at 11am. still on amiaodrone drip [place] CT surgeon aware of his case await cardiology clearance for transfer 1. acute A-fib/Vtach 2. acute hypoxic respiratory failure 3. pneumonia 4. covid infection. 5. aortic stenosis 6. CHF with preserved EF 7. CKD 8. hypertension 9. PMh of CAD 10. hx of overactive bladder overall plan await cardiology clearance for transfer to [place] troponin still elevated at 8829 still on amiodarone drip and heparin drip no cardiac symptoms; no pulmonary symptoms 1. acute A-fib, V-tach he's on metoprolol 12.5 BID and amiodarone he's on heparin ACS dose chest pain resolved. he's on crestor 5mg he's off home med of atenolol 2. STEMI, multivessel CAD troponin peak at 66,785 cardi[address]y noted inferior wall ST elevation and Q wave in the aVF and lateral ST depression s/p LHC on ,found multivesel cAD cycyle troponin, aspirin, heparin ACS dose. statin chest pain resolved for 48-72 hours 3. covid infection, acute respiratory failure decadron, restarted on remdemsivir he's on mucinex. he's weaning to 3 liter oxygen he's on room air today. ID dc cefepime. 4. aortic stenosis, avoid nitrate severe mitral regurgitation echo done in 2024, show moderate he need transfer to [facility] for aortic valve repair, communicated with CT surgeon from [place] 7. CHF, he's normally take atenolol 50mg and bumex 2mg daily he's was switch to metoprolol. lisinopril 40mg at home 8. GERD, he's on omeprazole 20mg at home 9. he's on thiothixene 2mg (4 caps) BID 8mg BID 10. code status: full code (2) V tach: (3) COVID: (4) Hypoxic respiratory failure: (5) Pneumonia: Admission and Anticipated Discharge Date Admission Date: April 27, 2025 Subjective he s/p LHC yesterday and found multivessel CAD heparin restart around 11:30am on room air; no chest pain; no chest pressure no diaphoresis, no shortness of breath, no sputum production no headache informally discussed with case with [facility] he need cardiology clearance prior to transfer to [place] he's on amiodarone drip, Physical Exam Physical Exam: VITALS: Reviewed. WEIGHT/BMI reviewed. GEN: Healthy appearing, well-developed, NAD. -Head: NC/AT; -Eyes: PERRL, EOMI. No discharge or redn ess; -Ears: External ears are normal. Normal TMs. -Nose: Normal nares. NECK: Supple, with no masses. CV: RRR, no m/r/g. + for murmur LUNGS: CTAB, no w/r/c. no wheezing; decrease breath sound ABD: Soft, NT/ND, NBS, no masses or organomegaly. : N/A MSK: No deformities, Normal gait. EXT: No clubbing, cyanosis, or edema. NEURO:AAOx3 Results & Data Results & Data Vital Signs (Past 12 Hours) Vital Signs Temp Pulse Pulse Resp BP Pulse Ox O2 Del Method 05/01/25 12:19 36.5 C 94 H 20 97/56 L 97 Room Air 05/01/25 08:00 89 05/01/25 07:42 36.4 C L 90 18 120/76 99 Room Air 05/01/25 02:38 36.5 C 72 18 112/71 96 Nasal Cannula Laboratory Results Laboratory Results - last 72 hr 04/27/25 04/28/25 04/28/25 17:59 15:48 18:12 WBC RBC Hgb Hct MCV MCH MCHC RDW Std Deviation RDW Coeff of Demarcus Plt Count MPV Heparin Anti-Xa, Unfract Sodium Potassium Chloride Carbon Dioxide Anion Gap BUN Creatinine Est Cr Clr Drug Dosing eGFR BUN/Creatinine Ratio Glucose POC Glucose 139 H Calcium Magnesium Total Bilirubin AST ALT Alkaline Phosphatase Troponin I High Sens 55384.3 H* D Total Protein Albumin Globulin Albumin/Globulin Ratio Digoxin Urine Legionella Ag SEE NOTE 04/28/25 04/28/25 04/29/25 22:30 23:47 04:23 WBC 7.99 RBC 4.17 L Hgb 13.3 L Hct 38.6 L MCV 92.6 MCH 31.9 MCHC 34.5 RDW Std Deviation 47.0 H RDW Coeff of Demarcus 13.7 Plt Count 137 MPV 11.1 Heparin Anti-Xa, Unfract 0.51 Sodium 136 Potassium 4.1 Chloride 100 Carbon Dioxide 28 Anion Gap 8 BUN 29 H Creatinine 1.59 H Est Cr Clr Drug Dosing 43.8 eGFR 43.89 BUN/Creatinine Ratio 18.2 Glucose 129 H POC Glucose 116 H Calcium 8.7 Magnesium 2.4 Total Bilirubin 1.0 AST 132 H ALT 24 Alkaline Phosphatase 46 Troponin I High Sens 60380.3 H* 84007.6 H* Total Protein 6.1 Albumin 3.3 L Globulin 2.8 Albumin/Globulin Ratio 1.2 Digoxin Urine Legionella Ag 04/29/25 04/29/25 04/29/25 11:38 11:41 16:26 WBC RBC Hgb Hct MCV MCH MCHC RDW Std Deviation RDW Coeff of Demarcus Plt Count MPV Heparin Anti-Xa, Unfract Sodium Potassium Chloride Carbon Dioxide Anion Gap BUN Creatinine Est Cr Clr Drug Dosing eGFR BUN/Creatinine Ratio Glucose POC Glucose 153 H 127 H Calcium Magnesium Total Bilirubin AST ALT Alkaline Phosphatase Troponin I High Sens Total Protein Albumin Globulin Albumin/Globulin Ratio Digoxin 1.2 Urine Legionella Ag 04/29/25 04/30/25 04/30/25 20:52 07:30 07:42 WBC RBC Hgb Hct MCV MCH MCHC RDW Std Deviation RDW Coeff of Demarcus Plt Count MPV Heparin Anti-Xa, Unfract < 0.10 L Sodium Cancelled Potassium Cancelled Chloride Cancelled Carbon Dioxide Cancelled Anion Gap Cancelled BUN Cancelled Creatinine Cancelled Est Cr Clr Drug Dosing Cancelled eGFR Cancelled BUN/Creatinine Ratio Cancelled Glucose Cancelled POC Glucose 116 H Calcium Cancelled Magnesium Cancelled Total Bilirubin Cancelled AST Cancelled ALT Cancelled Alkaline Phosphatase Cancelled Troponin I High Sens Total Protein Cancelled Albumin Cancelled Globulin Cancelled Albumin/Globulin Ratio Cancelled Digoxin Urine Legionella Ag 04/30/25 04/30/25 04/30/25 11:31 11:40 16:28 WBC 10.66 RBC 4.76 Hgb 14.8 Hct 44.3 MCV 93.1 MCH 31.1 MCHC 33.4 RDW Std Deviation 46.2 RDW Coeff of Demarcus 13.6 Plt Count 200 MPV 10.6 Heparin Anti-Xa, Unfract Sodium 137 Potassium 3.5 Chloride 100 Carbon Dioxide 27 Anion Gap 10 BUN 35 H Creatinine 1.35 Est Cr Clr Drug Dosing 51.6 eGFR 53.41 BUN/Creatinine Ratio 25.9 H Glucose 138 H POC Glucose 175 H 111 H Calcium 8.7 Magnesium 2.2 Total Bilirubin 1.2 H AST 62 H ALT 19 Alkaline Phosphatase 47 Troponin I High Sens Total Protein 6.5 Albumin 3.8 Globulin 2.7 Albumin/Globulin Ratio 1.4 Digoxin Urine Legionella Ag 04/30/25 05/01/25 05/01/25 20:51 06:32 07:29 WBC 10.18 RBC 4.94 Hgb 15.1 Hct 46.0 MCV 93.1 MCH 30.6 MCHC 32.8 RDW Std Deviation 46.6 H RDW Coeff of Demarcus 13.7 Plt Count 186 MPV 10.3 Heparin Anti-Xa, Unfract Sodium 138 Potassium 3.8 Chloride 102 Carbon Dioxide 24 Anion Gap 12 H BUN 40 H Creatinine 1.38 Est Cr Clr Drug Dosing 50.5 eGFR 52.02 BUN/Creatinine Ratio 29.0 H Glucose 113 H POC Glucose 110 H 125 H Calcium 8.7 Magnesium Total Bilirubin 1.0 AST 47 H ALT 18 Alkaline Phosphatase 45 Troponin I High Sens 8829.0 H* Total Protein 6.4 Albumin 3.7 Globulin 2.7 Albumin/Globulin Ratio 1.4 Digoxin Urine Legionella Ag 05/01/25 11:03 WBC RBC Hgb Hct MCV MCH MCHC RDW Std Deviation RDW Coeff of Demarcus Plt Count MPV Heparin Anti-Xa, Unfract Sodium Potassium Chloride Carbon Dioxide Anion Gap BUN Creatinine Est Cr Clr Drug Dosing eGFR BUN/Creatinine Ratio Glucose POC Glucose 139 H Calcium Magnesium Total Bilirubin AST ALT Alkaline Phosphatase Troponin I High Sens Total Protein Albumin Globulin Albumin/Globulin Ratio Digoxin Urine Legionella Ag Medications Administered Current Inpatient Medications Amlodipine Besylate (Amlodipine Besylate 5 Mg Tab) 10 mg PO DAILY PB Stop: 05/28/25 08:59 Aspirin (Aspirin 81 Mg Ectab) 81 mg PO DAILY PB Stop: 05/28/25 08:59 Last Admin: 05/01/25 08:51 Dose: 81 mg Azithromycin (Azithromycin 250 Mg Tab) 500 mg PO DAILY PB Stop: 05/03/25 11:00 Last Admin: 05/01/25 08:46 Dose: 500 mg Bumetanide (Bumetanide 1 Mg Tab) 2 mg PO DAILY PB Stop: 05/28/25 08:59 Last Admin: 05/01/25 08:50 Dose: 2 mg Dextrose (Dextrose 50% 50 Ml Syringe) 25 - 50 ml IV UD PRN; Protocol PRN Reason: Hypoglycemia Protocol Stop: 05/27/25 19:24 Glucagon (Glucagon For Inj 1 Mg Vial) 1 mg SQ UD PRN; Protocol PRN Reason: Hypoglycemia Protocol Stop: 05/27/25 19:24 Glucose (Glucose 40% Gel 15 Gm Tube) 15 - 30 gm PO UD PRN; Protocol PRN Reason: Hypoglycemia Protocol Stop: 05/27/25 19:24 Glucose (Glucose 10 Tab/Tube) 4 - 8 tab PO UD PRN; Protocol PRN Reason: Hypoglycemia Protocol Stop: 05/27/25 19:24 Guaifenesin (Guaifenesin 600 Mg Tabcr) 1,200 mg PO Q12 PB Stop: 05/27/25 20:59 Last Admin: 05/01/25 08:50 Dose: 1,200 mg Amiodarone HCl/Dextrose (Nexterone / D5w) 360 mg in 200 mls @ 16.667 mls/hr IV .Q12H [facility] Stop: 05/27/25 22:14 Last Admin: 05/01/25 09:10 Dose: 0.5 mg/min, 16.7 mls/hr Cefepime HCl (Maxipime 2000mg) 2,000 mg in 20 mls @ 5 mls/min IV Q12H [facility]; Protocol Stop: 05/02/25 20:59 Last Admin: 05/01/25 08:46 Dose: 5 mls/min Remdesivir 100 mg/ Sodium (Chloride) 250 mls @ 250 mls/hr IV Q24H [facility] Stop: 05/02/25 12:59 Last Admin: 05/01/25 11:35 Dose: 250 mls/hr Hydrocortisone Sodium (Succinate 50 mg/ Syringe) 1 mls @ 4 mls/min IV Q6H [facility] Stop: 05/28/25 09:59 Last Admin: 05/01/25 10:38 Dose: 4 mls/min Heparin Sodium/Dextrose (Heparin 47359 Unit/500 Ml D5w) 25,000 units in 500 mls @ 24 mls/hr IV .[id number] [facility]; Protocol Stop: 05/31/25 10:59 Last Titration: 05/01/25 11:53 Dose: 1,200 units/hr, 24 mls/hr Insulin Aspart (Insulin Aspart Per Unit Charge) 0 units SC ACHS [facility] Stop: 05/29/25 11:29 Last Admin: 05/01/25 11:47 Dose: 4 units Lisinopril (Lisinopril 40 Mg Tab) 40 mg PO DAILY [facility] Stop: 05/28/25 08:59 Metoprolol Tartrate (Metoprolol Tartrate 25 Mg Tab) 12.5 mg PO TID [facility] Stop: 05/29/25 16:59 Last Admin: 05/01/25 08:49 Dose: 12.5 mg Miscellaneous (Carbohydrates For Hypoglycemia ) 15 - 30 gm PO UD PRN PRN Reason: Hypoglycemia Protocol Stop: 05/27/25 19:24 Ondansetron HCl (Ondansetron Inj 2 Mg/Ml 2 Ml Vial) 4 mg IV Q4H PRN PRN Reason: Nausea Stop: 05/27/25 21:22 Last Admin: 04/27/25 21:36 Dose: 4 mg Pantoprazole Sodium (Pantoprazole 40 Mg Tab) 40 mg PO DAILY PB Stop: 05/28/25 08:59 Last Admin: 05/01/25 08:52 Dose: 40 mg Rosuvastatin Calcium (Rosuvastatin Calcium 5 Mg Tab) 5 mg PO DAILY PB Stop: 05/28/25 08:59 Last Admin: 05/01/25 08:51 Dose: 5 mg Thiothixene (Thiothixene 1 Mg Cap) 3 mg PO BID PB Stop: 05/27/25 20:59 Last Admin: 05/01/25 08:48 Dose: 3 mg Thiothixene (Thiothixene 5 Mg Cap) 5 mg PO BID PB Stop: 05/27/25 20:59 Last Admin: 05/01/25 08:52 Dose: 5 mg Trihexyphenidyl HCl (Trihexyphenidyl Hcl 5 Mg Tab) 5 mg PO TIDM [facility] Stop: 05/27/25 18:29 Last Admin: 05/01/25 11:38 Dose: 5 mg Vitamin B Complex/Folic Acid (Nephrocaps) 1 cap PO DAILY PB Stop: 05/28/25 08:59 Last Admin: 05/01/25 08:51 Dose: 1 cap PG Care Time/CCT Total # of Minutes Spent Total Time Spent with Patient: Total time spent is greater than 50% in coordination of care (as documented) at patient's floor/unit and/or counseling patient: Coding Level of Care Code 11839 SUB INP/OBS CARE /25MIN Diagnoses A-fib I48.91 V tach I47.20 COVID U07.1 Hypoxic respiratory failure J96.91 Pneumonia J18.9 Time Spent (min) 25
[2025-05-01 18:48] LABS: ANTI-Xa, UFH(UnfractionatedHep 0.41 IU/ml (0.3-0.7)
[2025-05-02 06:23] LABS: ANTI-Xa, UFH(UnfractionatedHep 0.65 IU/ml (0.3-0.7)
[2025-05-02 08:42] LABS: Hematocrit (blood only) 44.3 % (42.0-52.0); Hemoglobin 14.8 g/dl (14.0-18.0); Mean Corpuscular Hemoglobin 30.6 pg (25.0-34.0); Mean Corpuscular Volume 91.7 fL (80.0-100.0); Platelet Count 216 K/uL (130-400); RDW Standard Deviation 46.2 fL (36.4-46.3); Red Blood Count 4.83 M/uL (4.70-6.10); White Blood Count 13.24 K/ul (4.8-10.8)
[2025-05-02 09:45] LABS: Alanine Aminotransferase 22.0 U/L (7-52); Albumin Globulin Ratio 1.5 (0.9-2); Albumin Level 3.5 gm/dl (3.4-5.0); Alkaline Phosphatase 45.0 U/L (34-104); Anion Gap 11.0 (3-11); Bilirubin,Total 0.8 mg/dl (0.2-1.0); Blood Urea Nitrogen 39.0 mg/dl (6-23); Calcium 8.4 mg/dl (8.6-10.3); Carbon Dioxide 26.0 mmol/L (21-32); Chloride 101.0 mmol/L (98-107); Creatinine Clr Calc Pharmacy 53.6 ml/min; Globulin 2.4 gm/dl (2.5-4.0); Glucose 145.0 mg/dl (70-99(Fasting)); Potassium 3.2 mmol/L (3.5-5.1); Sodium 138.0 mmol/L (136-145); Total Protein 5.9 gm/dl (6.0-8.3)
--- NOTE | 2025-05-02 10:05 | Hospitalist Progress Note ---
Date of Service May 02, 2025 Assessment & Plan (1) A-fib: Plan: Mr.william maria is a 80 yo male, prisoner; with PMH of CAD, CHFpEF, aortic stenosis, mitral stenosis, CKD, depression with psychosis, hypertension on 04/27, presented from [facility] with cough, left side chest pain shortness of breath for 3-4 days, Covid positive hypotensive, hypoxic needing 15-30 liter, and admitted to ICU he's was in A-fib and there is question of V-tach, started on amiodarone infusion, and heparin for ACS dose he's was started on remdesmivor for covid PNA, and remains on doxycycline 04/30/ cardiology performs LHC shows left main disease and consideration of AoVr also teritary care referral oxygen status stable, no chest pain, no shortness of breath 1. acute A-fib/Vtach 2. acute hypoxic respiratory failure 3. pneumonia 4. covid infection. 5. aortic stenosis 6. CHF with preserved EF 7. CKD 8. hypertension 9. PMh of CAD 10. hx of overactive bladder # STEMI, multivessel CAD troponin peak at 66,[address] noted inferior wall ST elevation and Q wave in the aVF and lateral ST depression s/p LHC on 04/30/,found multivesel cAD pt does not want to have referral to tertiary center, will uptitrate metoprolol convert amiodarone to po, transtion heparin to eliquis for afib may need polst form prior to return to custodial acute A-fib, V-tach he's on metoprolol 50 BID and amiodarone he's on crestor 5mg covid infection, acute respiratory failure decadron, completed remdemsivir he's on mucinex. he's weaning oxygen ID dc cefepime. HFrEF, he's normally take atenolol 50mg and bumex 2mg daily he's was switch to metoprolol. will consider if need to reduce bumex dose and continue lisinpril . psychosis he's on thiothixene 2mg (4 caps) BID 8mg BID code status: full code will discuss further (2) V tach: (3) COVID: (4) Hypoxic respiratory failure: (5) Pneumonia: Admission and Anticipated Discharge Date Admission Date: April 27, 2025 Subjective called to pt room this am, pt states does not want transferred as does not want surgery educated pt on reason, he reflected back to me understanding, will need to transition off meds to have pt stable to return to custodial not clear if polst is appropriate but pt states he knows he can did poorly with attempts at ambulation Physical Exam Physical Exam: irregular heart beat with riley cw aortic stenosis lungs are clear Results & Data Results & Data Vital Signs (Past 12 Hours) Vital Signs Temp Pulse Resp BP Pulse Ox O2 Del Method 05/02/25 07:16 98.1 F 94 H 18 104/68 98 Nasal Cannula 05/02/25 04:00 97.5 F L 82 18 132/79 97 Room Air Laboratory Results review cbc review chemistry discussed case with Dr Lynn PG Care Time/CCT Total # of Minutes Spent Total Time Spent with Patient: Total time spent is greater than 50% in coordination of care (as documented) at patient's floor/unit and/or counseling patient: Coding Level of Care Code 80094 SUB INP/OBS CARE 3/50MIN Diagnoses A-fib I48.91 V tach I47.20 COVID U07.1 Hypoxic respiratory failure J96.91 Pneumonia J18.9
--- NOTE | 2025-05-02 11:45 | Electrocardiogram Report ---
Test Reason : Blood Pressure : */* mmHG Vent. Rate : 81 BPM Atrial Rate : * BPM P-R Int : * ms QRS Dur : 100 ms QT Int : 398 ms P-R-T Axes : * 44 134 degrees QTcB Int : 462 ms Atrial fibrillation Minimal voltage criteria for LVH, may be normal variant ( S[place]olow-[place] ) Cannot rule out Anterior infarct (cited on or before 28-Apr-2025) Abnormal ECG When compared with ECG of 28-Apr-2025 14:42, (unconfirmed) No significant change was found Confirmed by Chris Caballero ([id number]) on 05/02/2025 11:45:32 AM Referred By: [facility] Confirmed By: Chris Caballero
[2025-05-02] MEDS: METOPROLOL TARTRATE 25 MG TAB PO ONE (13:16)
[2025-05-02] MEDS: AMIODARONE 200 MG TAB PO SCH (17:24)
[2025-05-02] MEDS: POLYETHYLENE (MIRALAX) 17 GM PACK PO ONE (20:33)
[2025-05-02] MEDS: METOPROLOL TARTRATE 50 MG TAB PO SCH (20:35)
[2025-05-02] MEDS: APIXABAN 5 MG TABLET PO SCH (20:39)
[2025-05-02] MEDS: HEPARIN STOP ORDER ONE (20:47)
[2025-05-02] MEDS ORDERED: METOPROLOL TARTRATE 25 MG TAB PO SCH (21:00)
[2025-05-03 08:22] LABS: Hematocrit (blood only) 41.4 % (42.0-52.0); Hemoglobin 13.8 g/dl (14.0-18.0); Mean Corpuscular Hemoglobin 30.7 pg (25.0-34.0); Mean Corpuscular Volume 92.0 fL (80.0-100.0); Platelet Count 187 K/uL (130-400); RDW Standard Deviation 46.2 fL (36.4-46.3); Red Blood Count 4.50 M/uL (4.70-6.10); White Blood Count 10.71 K/ul (4.8-10.8)
[2025-05-03 08:29] LABS: Alanine Aminotransferase 22.0 U/L (7-52); Albumin Globulin Ratio 1.5 (0.9-2); Albumin Level 3.4 gm/dl (3.4-5.0); Alkaline Phosphatase 45.0 U/L (34-104); Anion Gap 7.0 (3-11); Bilirubin,Total 0.8 mg/dl (0.2-1.0); Blood Urea Nitrogen 38.0 mg/dl (6-23); Calcium 8.3 mg/dl (8.6-10.3); Carbon Dioxide 31.0 mmol/L (21-32); Chloride 101.0 mmol/L (98-107); Creatinine Clr Calc Pharmacy 54.4 ml/min; Globulin 2.3 gm/dl (2.5-4.0); Glucose 105.0 mg/dl (70-99(Fasting)); Potassium 3.2 mmol/L (3.5-5.1); Sodium 139.0 mmol/L (136-145); Total Protein 5.7 gm/dl (6.0-8.3)
[2025-05-03] MEDS: POTASSIUM CHLORIDE CRTAB 20 MEQ TABCR PO STA (09:19)
[2025-05-03] MEDS: DICLOFENAC SOD 1% GEL 100 GM TUBE EXT ONE (11:11)
--- NOTE | 2025-05-03 13:09 | Psychiatric Consultation ---
Date of Consultation May 03, 2025 Impression / Recommendations Impression Diagnostically no evidence for a current mood condition nor psychosis negatively impacting his decision to decline cardiac surgery. Based on Aid to Capacity Evaluation he is able to state how he came to his decision, alternatives, his medical problems, and the risks/benefits of accepting and refusing recommended treatment. His acute risk of self-harm is low given denial of SI and future- oriented. He is deemed to have decision making capacity to decline cardiac surgery. He explains that for him the risks of potentially dying or having major complications from surgery outweigh the potential benefits as he feels no current cardiac pain and prefers to return to [facility]. States he would consider further medical interventions in the future if he experienced cardiac symptoms or started to develop issues that impacted his functioning. He understands the risk of but feels this risk is higher with the surgery than without based on discussions he had with past providers and with his current doctors. Overall, I spent a total of 60 minutes with this case including review of chart records, review of labwork, direct evaluation of the patient at bedside, counseling the patient, discussion of the patient with the Nurse and with the hospitalist provider, discussion with the psychiatric liason during clinical rounds and documentation in the electronic health record. (1) Encounter for assessment of healthcare decision-making capacity: (2) CHF exacerbation: (3) Elevated troponin: Plan -He has decision making capacity to decline surgery -No imminent safety concerns Telehealth Telehealth Options: Telephone only For the duration of the visit, provider was performing the assessment from: The same facility as the patient After establishing a telemedicine visit, patient was: Patient was verified with two unique identifiers, Patient/authorized rep acknowledged consent and understanding and Gave permission to continue telehealth session Total Time Spent (minutes): 60 Psych History Identifying Data Prince Hansen is a 80 yo man and inmate at [facility] with a history of CAD, CHFpEF, aortic stenosis, mitral stenosis, CKD, depression with psychosis, hypertension admitted medically for SOB and found to have COVID and multivessel CAD. Psychiatry consulted per jail request for decision making capacity eval/rule out suicide contributing to his refusal for escalated medical transfer and cardiac surgical intervention. Chief Complaint "No if I wanted that [suicide] I'd take the chance with the surgery". History of Present Illness Consulted to see Prince following his decision to refuse cardiac surgery to assess for any potential contribution of depressive symptoms in this decision. He reports experiencing bilateral arm pain lasting 5 minutes which he reported to jail staff the day before admission which prompted his hospitalization. Upon admission states he was also diagnosed with COVID-19 and diabetes which surprised him as he had not been having any symptoms of these. Prince states he had no cardiac symptoms upon arrival reporting "no pain or nothing". He states in speaking with the doctors here they have informed him that the proposed surgery carries very high risk due to his age with significant possibility that he could from the procedure, "now they're saying high risk at my age that I might not make it through surgery". This information led Prince to decline the procedure despite acknowledging he could potentially sooner without it. He expresses some uncertainty about alternative treatments stating "I do not know" when asked about other options but asks that we "send me back to [facility]" and knows that it is an option to decline surgery and continue taking medications. He acknowledges that without surgery he "probably" could get sicker or but he feels "Why would I have an operation when I had no symptoms when I came here and could live 3 days, 3 weeks 3 years" without the surgery especially since he denies any current cardiac symptoms. He feels the current risk-benefit ratio favors declining the procedure given the potential for serious side effects or during the procedure due to his age. He also references that about 3 years ago when he had a heart attack that the doctor at that time told him " if it is working do not fix it". Looking back he now suspects his arm pain prior to admission may have been due to the stress factors of COVID-19 and diabetes. 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 He reports that this does cause him to feel down at times but reports his mood is "alright" and that he has some hope and he does enjoy his day-to-day life and wants to continue living hopefully for many years. He describes his daily activities that bring enjoyment including playing guitar, watching TV (he particularly sports has been watching the Steelers and references players", and listening to the radio. He denies having friends at the facility. He denies current suicidal ideations stating "no if I wanted that I take the grace nce with the surgery". He affirms feeling deserving of medical treatment for future health issues, denies any belief that he is being punished, denies feeling that he is a bad person, reports some hope for the future and denies any paranoia, sense that anyone is trying to harm him and reports that he feels he can trust his doctors and nurses. Allergies Allergy/AdvReac Type Severity Reaction Status Date / Time No Known Drug Allergies Allergy Unknown Unverified 10/09/24 13:44 Home Medications Medication Instructions Recorded Confirmed Type amlodipine 10 mg tablet 10 mg PO DAILY 11/20/22 10/09/24 History aspirin 81 mg tablet,delayed 81 mg PO DAILY 11/20/22 10/09/24 History release (Adult Low Dose Aspirin) atenolol 50 mg tablet 50 mg PO DAILY 11/20/22 10/09/24 History lisinopril 40 mg tablet 40 mg PO DAILY 11/20/22 10/09/24 History rosuvastatin 5 mg tablet 5 mg PO DAILY 11/20/22 10/09/24 History vit B complex and vit C 1 tab PO DAILY 11/20/22 10/09/24 History no.24-ferrous fum 66 mg-folic 1,000 mcg tablet (Nephron FA) thiothixene 2 mg capsule See Rx Instructions PO .COMPLEX 01/19/23 10/09/24 History bumetanide 2 mg tablet 2 mg PO DAILY 10/09/24 10/09/24 History dapagliflozin propanediol 10 mg 10 mg PO DAILY 10/09/24 10/09/24 History tablet (Farxiga) omeprazole 20 mg capsule,delayed 20 mg PO DAILY 10/09/24 10/09/24 History release trihexyphenidyl 5 mg tablet 5 mg PO TID 10/09/24 10/09/24 History amiodarone 200 mg tablet 200 mg PO BIDM #60 tabs 05/03/25 Rx apixaban 5 mg tablet (Eliquis) 5 mg PO BID #60 tabs 05/03/25 Rx metoprolol tartrate 50 mg tablet 50 mg PO BID #60 tabs 05/03/25 Rx Patient History Medical History Cellulitis Major depressive disorder with psychotic features Degenerative disc disease Social History Smoking Status: Unknown if ever smoked Tobacco Type: Cigarettes Hx Alcohol Use: No Hx Substance Use: No Preferred Language: Malagasy Communication Ability: Effective Visual Impairment: No Limitations Hearing Ability: Normal Cardiac Cath Lab Manager Required: No Beliefs That Will Affect Care: None Current Living Situation: Other Current Living Situation Comment: [facility] Feels Safe at Home: Yes Physical Exam Vital Signs (Past 24 Hours): Last Vital Signs Temp 36.7 C 05/03/25 07:54 Pulse 108 H 05/03/25 11:08 Resp 18 05/03/25 07:54 BP 101/63 05/03/25 11:08 Pulse Ox 97 05/03/25 07:54 O2 Del Method Room Air 05/03/25 07:54 O2 Flow Rate 1 04/30/25 16:02 FiO2 40 04/29/25 03:10 Results & Data (PSY) Medications Administered Amiodarone HCl (Amiodarone 200 Mg Tab) 200 mg PO BIDM [facility] Stop: 06/01/25 16:59 Last Admin: 05/03/25 09:23 Dose: 200 mg Documented By: Admin: 05/02/25 17:24 Dose: 200 mg Documented By: YRN Apixaban (Apixaban 5 Mg Tablet) 5 mg PO BID PB Stop: 05/09/25 09:01 Last Admin: 05/03/25 09:23 Dose: 5 mg Documented By: Admin: 05/02/25 20:39 Dose: 5 mg Documented By: YRN Aspirin (Aspirin 81 Mg Ectab) 81 mg PO DAILY PB Stop: 05/28/25 08:59 Last Admin: 05/03/25 09:25 Dose: 81 mg Documented By: Admin: 05/02/25 09:45 Dose: 81 mg Documented By: Admin: 05/01/25 08:51 Dose: 81 mg Documented By: Admin: 04/30/25 08:35 Dose: 81 mg Documented By: Admin: 04/29/25 08:47 Dose: 81 mg Documented By: Admin: 04/28/25 08:23 Dose: 81 mg Documented By: LAVERNE Bumetanide (Bumetanide 1 Mg Tab) 2 mg PO DAILY PB Stop: 05/28/25 08:59 Last Admin: 05/02/25 09:44 Dose: 2 mg Documented By: Admin: 05/01/25 08:50 Dose: 2 mg Documented By: Admin: 04/30/25 08:37 Dose: 2 mg Documented By: Insulin Aspart (Insulin Aspart Per Unit Charge) 0 units SC ACHS PB Stop: 05/29/25 11:29 Last Admin: 05/03/25 09:36 Dose: 5 units Documented By: AM Co-signed By: ALFREDA Admin: 05/02/25 20:46 Dose: Not Given Documented By: Admin: 05/02/25 17:28 Dose: 3 units Documented By: YRN Co-signed By: AAGe Admin: 05/02/25 12:15 Dose: 5 units Documented By: YRN Co-signed By: KENDALL Admin: 05/02/25 08:00 Dose: 6 units Documented By: YRN Co-signed By: KENDALL Admin: 05/01/25 20:19 Dose: Not Given Documented By: Admin: 05/01/25 17:25 Dose: 9 units Documented By: YRN Co-signed By: DTT Admin: 05/01/25 11:47 Dose: 4 units Documented By: YRN Co-signed By: DELILAH Admin: 05/01/25 08:45 Dose: 4 units Documented By: YRN Co-signed By: DELILAH Admin: 04/30/25 20:58 Dose: Not Given Documented By: Admin: 04/30/25 17:11 Dose: 5 units Documented By: Co-signed By: AM Admin: 04/30/25 12:34 Dose: 7 units Documented By: Co-signed By: MILAGRO Admin: 04/30/25 08:33 Dose: Not Given Documented By: Admin: 04/29/25 20:54 Dose: Not Given Documented By: Admin: 04/29/25 16:58 Dose: 4 units Documented By: MICHELLE Co-signed By: iza Admin: 04/29/25 11:51 Dose: 5 units Documented By: LAVERNE Co-signed By: ELIUD Metoprolol Tartrate (Metoprolol Tartrate 50 Mg Tab) 50 mg PO BID PB Stop: 06/01/25 20:59 Last Admin: 05/03/25 11:09 Dose: 50 mg Documented By: Admin: 05/02/25 20:35 Dose: 50 mg Documented By: YRN Ondansetron HCl (Ondansetron Inj 2 Mg/Ml 2 Ml Vial) 4 mg IV Q4H PRN PRN Reason: Nausea Stop: 05/27/25 21:22 Last Admin: 04/27/25 21:36 Dose: 4 mg Documented By: CATY Pantoprazole Sodium (Pantoprazole 40 Mg Tab) 40 mg PO DAILY PB Stop: 05/28/25 08:59 Last Admin: 05/03/25 09:26 Dose: 40 mg Documented By: Admin: 05/02/25 09:45 Dose: 40 mg Documented By: Admin: 05/01/25 08:52 Dose: 40 mg Documented By: Admin: 04/30/25 08:36 Dose: 40 mg Documented By: Admin: 04/29/25 08:47 Dose: 40 mg Documented By: Admin: 04/28/25 08:22 Dose: 40 mg Documented By: LAVERNE Rosuvastatin Calcium (Rosuvastatin Calcium 5 Mg Tab) 5 mg PO DAILY PB Stop: 05/28/25 08:59 Last Admin: 05/03/25 09:26 Dose: 5 mg Documented By: Admin: 05/02/25 09:44 Dose: 5 mg Documented By: Admin: 05/01/25 08:51 Dose: 5 mg Documented By: Admin: 04/30/25 08:35 Dose: 5 mg Documented By: Admin: 04/29/25 08:47 Dose: 5 mg Documented By: Admin: 04/28/25 08:22 Dose: 5 mg Documented By: LAVERNE Thiothixene (Thiothixene 1 Mg Cap) 3 mg PO BID PB Stop: 05/27/25 20:59 Last Admin: 05/03/25 09:24 Dose: 3 mg Documented By: Admin: 05/02/25 20:34 Dose: 3 mg Documented By: Admin: 05/02/25 09:43 Dose: 3 mg Documented By: Admin: 05/01/25 20:22 Dose: 3 mg Documented By: Admin: 05/01/25 08:48 Dose: 3 mg Documented By: Admin: 04/30/25 21:03 Dose: 3 mg Documented By: Admin: 04/30/25 09:44 Dose: 3 mg Documented By: Admin: 04/29/25 21:00 Dose: 3 mg Documented By: Admin: 04/29/25 08:46 Dose: 3 mg Documented By: [facility] Admin: 04/28/25 20:38 Dose: 3 mg Documented By: Admin: 04/28/25 08:21 Dose: 3 mg Documented By: [facility] Admin: 04/27/25 21:14 Dose: 3 mg Documented By: CATY Thiothixene (Thiothixene 5 Mg Cap) 5 mg PO BID PB Stop: 05/27/25 20:59 Last Admin: 05/03/25 09:26 Dose: 5 mg Documented By: Admin: 05/02/25 20:39 Dose: 5 mg Documented By: Admin: 05/02/25 09:44 Dose: 5 mg Documented By: Admin: 05/01/25 20:22 Dose: 5 mg Documented By: Admin: 05/01/25 08:52 Dose: 5 mg Documented By: Admin: 04/30/25 21:06 Dose: 5 mg Documented By: Admin: 04/30/25 08:35 Dose: 5 mg Documented By: Admin: 04/29/25 21:02 Dose: 5 mg Documented By: Admin: 04/29/25 08:47 Dose: 5 mg Documented By: [facility] Admin: 04/28/25 20:38 Dose: 5 mg Documented By: Admin: 04/28/25 08:21 Dose: 5 mg Documented By: [facility] Admin: 04/27/25 21:14 Dose: 5 mg Documented By: ANNA Trihexyphenidyl HCl (Trihexyphenidyl Hcl 5 Mg Tab) 5 mg PO TIDM PB Stop: 05/27/25 18:29 Last Admin: 05/03/25 09:20 Dose: 5 mg Documented By: Admin: 05/02/25 16:27 Dose: 5 mg Documented By: [facility] Admin: 05/02/25 12:11 Dose: 5 mg Documented By: [facility] Admin: 05/02/25 08:11 Dose: 5 mg Documented By: [facility] Admin: 05/01/25 16:28 Dose: 5 mg Documented By: [facility] Admin: 05/01/25 11:38 Dose: 5 mg Documented By: Admin: 05/01/25 08:47 Dose: 5 mg Documented By: Admin: 04/30/25 17:11 Dose: 5 mg Documented By: Admin: 04/30/25 12:35 Dose: 5 mg Documented By: Admin: 04/30/25 08:36 Dose: 5 mg Documented By: Admin: 04/29/25 16:59 Dose: 5 mg Documented By: Admin: 04/29/25 11:32 Dose: 5 mg Documented By: [facility] Admin: 04/29/25 08:46 Dose: 5 mg Documented By: [facility] Admin: 04/28/25 16:22 Dose: 5 mg Documented By: [facility] Admin: 04/28/25 12:45 Dose: 5 mg Documented By: [facility] Admin: 04/28/25 08:25 Dose: 5 mg Documented By: [facility] Admin: 04/27/25 19:04 Dose: Not Given Documented By: [facility] Vitamin B Complex/Folic Acid (Nephrocaps) 1 cap PO DAILY PB Stop: 05/28/25 08:59 Last Admin: 05/03/25 09:25 Dose: 1 cap Documented By: Admin: 05/02/25 09:45 Dose: 1 cap Documented By: Admin: 05/01/25 08:51 Dose: 1 cap Documented By: Admin: 04/30/25 08:36 Dose: 1 cap Documented By: Admin: 04/29/25 08:46 Dose: 1 cap Documented By: [facility] Admin: 04/28/25 08:21 Dose: 1 cap Documented By: [facility] Coding Level of Care Code 53272 IN/OBS CONSULT LVL 4,60M Diagnoses Encounter for assessment of healthcare decision-making capacity Z02.79 CHF exacerbation I50.9 Elevated troponin R79.89
--- NOTE | 2025-05-03 13:47 | Palliative Care Consultation ---
Date of Consultation May 03, 2025 Assessment & Plan (1) Palliative care by specialist: Met with pt at bedside, two SCI guards were present for entire visit. Introduced Palliative Medicine and explained our role in advanced care planning, symptom management and navigation through the progression of life limiting disease. Patient was receptive to palliative services for goals of care discussions. Reviewed we are different from hospice, a home health nurse visiting service. (2) SOB (shortness of breath) on exertion: (3) Chest pain: Ischemic chest pain type: stable angina pectoris (4) Counseling regarding goals of care: Discussed pt's values and GOC for 30 minutes today. We discussed at length the patient's acute and chronic medical conditions, general prognosis, treatment options, and goals of care. Pt shared that he was offered surgery for his "bad valves" but he feels that the surgery would not be worth the potential risks and he would like to return to the intermediate rather than stay in hospital any longer. Pt verbalized understanding that he has "blocked arteries and bad valves" and that he would need to go to [facility] for surgery, but states that he is not willing to undergo any surgery. He is aware that without surgery he will likely from heart failure. He is aware of risks involved and is not willing to accept surgical intervention. Given pt's advanced heart disease and poor prognosis, we discussed code status and helped patient understand that CPR is only done after a person has and involves uncomfortable and invasive procedures that, if successful. 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 Pt initially stated that he would be ok being resuscitated if he could get better, but faced with the fact that getting better would require heart surgery, he is now requesting DNR/DNI status. He did clearly state that he does wish to continue all therapies to keep his heart beating, but in the event of his NO resuscitation. He stated that in the event his heart or his breathing were to stop, he would wish for a peaceful natural . He does not wish to be dependent on mechanical ventilation in any case. Plan We will sign off on this patient as goals of care are clearly established for DNR/DNI but continue all other life prolonging therapies Thank you for including Palliative Care in the management of this patient. Please call with any questions or concerns regarding this consultation. History of Present Illness Reason for Consultation: goals of care Requesting Physician: Raul Davis MD Attending Physician: Raul Davis MD History of Present Illness Mr. Prince Hansen is a 80 yo male with PMH of CAD, CHFpEF, aortic stenosis, mitral stenosis, CKD, depression with psychosis, hypertension who presented from intermediate on 04/27 with cough, left side chest pain, shortness of breath for 3- 4 days. He was found to be COVID+, started on remdesmivor, cefepiome and doxycyline. 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 Cardiology recs transfer to [facility] for surgery which pt refused. Palliative care consulted for assistance with GOC. Allergies Allergy/AdvReac Type Severity Reaction Status Date / Time No Known Drug Allergies Allergy Unknown Unverified 10/09/24 13:44 Home Medications Medication Instructions Recorded Confirmed Type amlodipine 10 mg tablet 10 mg PO DAILY 11/20/22 10/09/24 History aspirin 81 mg tablet,delayed 81 mg PO DAILY 11/20/22 10/09/24 History release (Adult Low Dose Aspirin) atenolol 50 mg tablet 50 mg PO DAILY 11/20/22 10/09/24 History lisinopril 40 mg tablet 40 mg PO DAILY 11/20/22 10/09/24 History rosuvastatin 5 mg tablet 5 mg PO DAILY 11/20/22 10/09/24 History vit B complex and vit C 1 tab PO DAILY 11/20/22 10/09/24 History no.24-ferrous fum 66 mg-folic 1,000 mcg tablet (Nephron FA) thiothixene 2 mg capsule See Rx Instructions PO .COMPLEX 01/19/23 10/09/24 History bumetanide 2 mg tablet 2 mg PO DAILY 10/09/24 10/09/24 History dapagliflozin propanediol 10 mg 10 mg PO DAILY 10/09/24 10/09/24 History tablet (Farxiga) omeprazole 20 mg capsule,delayed 20 mg PO DAILY 10/09/24 10/09/24 History release trihexyphenidyl 5 mg tablet 5 mg PO TID 10/09/24 10/09/24 History amiodarone 200 mg tablet 200 mg PO BIDM #60 tabs 05/03/25 Rx apixaban 5 mg tablet (Eliquis) 5 mg PO BID #60 tabs 05/03/25 Rx metoprolol tartrate 50 mg tablet 50 mg PO BID #60 tabs 05/03/25 Rx Patient History Medical History Cellulitis Major depressive disorder with psychotic features Degenerative disc disease Social History Smoking Status: Unknown if ever smoked Tobacco Type: Cigarettes Hx Alcohol Use: No Hx Substance Use: No Preferred Language: Azeri Communication Ability: Effective Visual Impairment: No Limitations Hearing Ability: Normal Group Home Paraprofessional Required: No Beliefs That Will Affect Care: None Current Living Situation: Other Current Living Situation Comment: [facility] [place] Feels Safe at Home: Yes Review of Systems Review of Systems: All systems reviewed & are unremarkable except as noted in HPI & below Physical Exam Constitutional: WD/WN, vitals as above Eyes: PERRL, conjunctivae normal, anicteric sclerae Respiratory: normal respiratory effort, lungs clear to auscultation Cardiovascular: Rate/Rhythm: + irregularly irregular Extremities: normal capillary refill; no edema Gastrointestinal (Abdomen): normal bowel sounds, soft, nontender, no hepatosplenomegaly Skin: no rashes, warm and dry Neurologic: PERRL, EOMI, accommodation nl, no face palsy, no dysarthria Psychiatric: A+Ox3, euthymic affect Results & Data Vital Signs (Past 12 Hours) Vital Signs Temp Pulse Pulse Resp BP Pulse Ox O2 Del Method 05/03/25 11:08 108 H 101/63 05/03/25 07:54 36.7 C 104 H 18 99/71 L 97 Room Air 05/03/25 07:32 86 05/03/25 02:46 36.6 C 73 18 104/61 96 Room Air Laboratory Results Abnormal lab results 05/02/25 05/03/25 Range/Units 20:36 07:46 RBC 4.50 L (4.70-6.10) M/uL Hgb 13.8 L (14.0-18.0) g/dl Hct 41.4 L (42.0-52.0) % Potassium 3.2 L (3.5-5.1) mmol/L BUN 38 H (6-23) mg/dl BUN/Creatinine Ratio 29.7 H (10-20) Glucose 105 H (70-99(Fasting)) mg/dl POC Glucose 110 H (70-99) mg/dl Calcium 8.3 L (8.6-10.3) mg/dl Total Protein 5.7 L (6.0-8.3) gm/dl Globulin 2.3 L (2.5-4.0) gm/dl Diagnostic Findings Chest CTA 04/27/25 15:08 CT angio chest PE protocol CT DOSE: 898.99 mGy.cm HISTORY: Dyspnea, afib, PNA. TECHNIQUE: Multiple CTA images of the chest were obtained after the intravenous administration of 120 ml Optiray. Coronal and sagittal MIPS were obtained from the axial data set and were submitted for review. All measurements were obtained according to NASCET criteria. A dose lowering technique was utilized adhering to the principles of ALARA. COMPARISON STUDY: None FINDINGS: There is motion artifact due to breathing. There are mild airway secretions. There is moderate cardiomegaly with mild prominence of the pulmonary vasculature consistent with CHF. There are trace bilateral pleural effusions. There is septal thickening in the lungs and patchy groundglass opacity at the mid and lower lungs which could represent pulmonary edema or pneumonia. There is bandlike opacity in the lung apices which likely represents scarring. No pneumothorax. No enlarged adenopathy. No thoracic aortic aneurysm. No pulmonary embolism seen. No acute osseous findings. IMPRESSION: 1. No pulmonary embolism. 2. CHF with pulmonary edema versus pneumonia. ACT 112: Negative or not required by law. The above report was generated using voice recognition software. It may contain grammatical, syntax or spelling errors. Electronically signed by: Toni Thomas M.D. 04/27/2025 3:45 PM Chest X-Ray 04/28/25 09:46 Technique: A frontal view of the chest was obtained Findings: There suspected mild pulmonary edema. There is more focal right lower lobe opacity. The heart is mildly enlarged. No pleural effusion or pneumothorax is seen. There is biapical pleural thickening No fracture is noted. No foreign body is seen Impression: 1. Mild cardiomegaly and mild pulmonary edema 2. Possible concurrent right lower lobe pneumonia ACT 112: Positive. There are findings on this exam that require communication between the performing entity and the patient following Patient Test Result Information Act ([place] ACT 112) guidelines. Electronically signed by Tyler Perez 04-28-2025 10:22 AM Medications Administered Current Inpatient Medications Amiodarone HCl (Amiodarone 200 Mg Tab) 200 mg PO BIDM [facility] Stop: 06/01/25 16:59 Last Admin: 05/03/25 09:23 Dose: 200 mg Amlodipine Besylate (Amlodipine Besylate 5 Mg Tab) 10 mg PO DAILY PB Stop: 05/28/25 08:59 Apixaban (Apixaban 5 Mg Tablet) 5 mg PO BID PB Stop: 05/09/25 09:01 Last Admin: 05/03/25 09:23 Dose: 5 mg Aspirin (Aspirin 81 Mg Ectab) 81 mg PO DAILY PB Stop: 05/28/25 08:59 Last Admin: 05/03/25 09:25 Dose: 81 mg Bumetanide (Bumetanide 1 Mg Tab) 2 mg PO DAILY PB Stop: 05/28/25 08:59 Last Admin: 05/02/25 09:44 Dose: 2 mg Dextrose (Dextrose 50% 50 Ml Syringe) 25 - 50 ml IV UD PRN; Protocol PRN Reason: Hypoglycemia Protocol Stop: 05/27/25 19:24 Glucagon (Glucagon For Inj 1 Mg Vial) 1 mg SQ UD PRN; Protocol PRN Reason: Hypoglycemia Protocol Stop: 05/27/25 19:24 Glucose (Glucose 40% Gel 15 Gm Tube) 15 - 30 gm PO UD PRN; Protocol PRN Reason: Hypoglycemia Protocol Stop: 05/27/25 19:24 Glucose (Glucose 10 Tab/Tube) 4 - 8 tab PO UD PRN; Protocol PRN Reason: Hypoglycemia Protocol Stop: 05/27/25 19:24 Insulin Aspart (Insulin Aspart Per Unit Charge) 0 units SC ACHS PB Stop: 05/29/25 11:29 Last Admin: 05/03/25 13:09 Dose: 1 units Lisinopril (Lisinopril 40 Mg Tab) 40 mg PO DAILY PB Stop: 05/28/25 08:59 Metoprolol Tartrate (Metoprolol Tartrate 50 Mg Tab) 50 mg PO BID PB Stop: 06/01/25 20:59 Last Admin: 05/03/25 11:09 Dose: 50 mg Miscellaneous (Carbohydrates For Hypoglycemia ) 15 - 30 gm PO UD PRN PRN Reason: Hypoglycemia Protocol Stop: 05/27/25 19:24 Ondansetron HCl (Ondansetron Inj 2 Mg/Ml 2 Ml Vial) 4 mg IV Q4H PRN PRN Reason: Nausea Stop: 05/27/25 21:22 Last Admin: 04/27/25 21:36 Dose: 4 mg Pantoprazole Sodium (Pantoprazole 40 Mg Tab) 40 mg PO DAILY PB Stop: 05/28/25 08:59 Last Admin: 05/03/25 09:26 Dose: 40 mg Rosuvastatin Calcium (Rosuvastatin Calcium 5 Mg Tab) 5 mg PO DAILY PB Stop: 05/28/25 08:59 Last Admin: 05/03/25 09:26 Dose: 5 mg Thiothixene (Thiothixene 1 Mg Cap) 3 mg PO BID PB Stop: 05/27/25 20:59 Last Admin: 05/03/25 09:24 Dose: 3 mg Thiothixene (Thiothixene 5 Mg Cap) 5 mg PO BID PB Stop: 05/27/25 20:59 Last Admin: 05/03/25 09:26 Dose: 5 mg Trihexyphenidyl HCl (Trihexyphenidyl Hcl 5 Mg Tab) 5 mg PO TIDM PB Stop: 05/27/25 18:29 Last Admin: 05/03/25 13:14 Dose: 5 mg Vitamin B Complex/Folic Acid (Nephrocaps) 1 cap PO DAILY PB Stop: 05/28/25 08:59 Last Admin: 05/03/25 09:25 Dose: 1 cap PG Care Time/CCT Total # of Minutes Spent Total Time Spent with Patient: Total time spent is greater than 50% in coordination of care (as documented) at patient's floor/unit and/or counseling patient: Advanced Care Planning 21393 Advanced Care Planning 30 [place] [address] IN/OBS CONSULT LVL 3,45M Patient Type New History Expanded Problem Focused Exam Expanded Problem Focused Medical Decision Making Moderate Complexity Diagnoses Palliative care by specialist Z51.5 SOB (shortness of breath) on exertion R06.02 Chest pain R07.9 Ischemic chest pain type: stable angina pectoris Counseling regarding goals of care Z71.89 Additional Codes Advanced Care Planning - 63821 Advanced Care Planning 30 Min: 82684 Advanced Care Planning 30 Min ([id number])
--- NOTE | 2025-05-03 14:30 | Hospitalist Progress Note ---
Date of Service May 03, 2025 Assessment & Plan (1) A-fib: Plan: Mr.william maria is a 80 yo male, prisoner; with PMH of CAD, CHFpEF, aortic stenosis, mitral stenosis, CKD, depression with psychosis, hypertension on 04/27, [facility] from jail with cough, left side chest pain shortness of breath for 3-4 days, Covid positive hypotensive, hypoxic needing 15-30 liter, and admitted to ICU he's was in A-fib and there is question of V-tach, started on amiodarone infusion, and heparin for ACS dose he's was started on remdesmivor for covid PNA, and remains on doxycycline 04/30/ cardiology performs LHC shows left main disease and consideration of AoVr also teritary care referral oxygen status stable, no chest pain, no shortness of breath # STEMI, multivessel CAD troponin peak at 66,[address] cardi[address]y noted inferior wall ST elevation and Q wave in the aVF and lateral ST depression s/p LHC on ,found multivessel cAD pt does not want to have referral to tertiary center, does not want to take risk of surgery, tolerated uptitration of metoprolol, converted amiodarone to po, transition heparin to eliquis for afib Palliative care did speak to pt, will make dnr while inpatient, consider further discussions of polst upon return to jail acute A-fib, V-tach he's on metoprolol 50 BID and amiodarone he's on crestor 5mg . eliquis covid infection, acute respiratory failure decadron x 10 days LD 05/07, completed remdemsivir he's on mucinex. he's weaning oxygen ID dc cefepime. HFrEF, he's normally take atenolol 50mg and bumex 2mg daily he's was switch to metoprolol. will consider if need to reduce bumex dose( on hold with lower blood pressure) and continue lisinpril . psychosis he's on thiothixene 2mg (4 caps) BID 8mg BID, Psychiatrist reports that pt has sound reasoning in his decision making capacity to refuse revascularization code status: full code will discuss further (2) V tach: (3) COVID: (4) Hypoxic respiratory failure: (5) Pneumonia: Admission and Anticipated Discharge Date Admission Date: April 27, 2025 Subjective Discussed with pt as since declining recommendation for revascularization and valve repair, will as palliative care to see patient. [facility] directed asked for psychiatry evaluation to determine fitness of competency to make decision Physical Exam Physical Exam: irregular heart beat with riley cw aortic stenosis lungs are clear Results & Data Results & Data Vital Signs (Past 12 Hours) Vital Signs Temp Pulse Pulse Resp BP Pulse Ox O2 Del Method 05/03/25 11:08 108 H 101/63 05/03/25 07:54 98.1 F 104 H 18 99/71 L 97 Room Air 05/03/25 07:32 86 05/03/25 02:46 97.9 F 73 18 104/61 96 Room Air PG Care Time/CCT Total # of Minutes Spent Total Time Spent with Patient: Total time spent is greater than 50% in coordination of care (as documented) at patient's floor/unit and/or counseling patient: Coding Level of Care Code 83038 SUB INP/OBS CARE 3/50MIN Diagnoses A-fib I48.91 V tach I47.20 COVID U07.1 Hypoxic respiratory failure J96.91 Pneumonia J18.9
[2025-05-04 07:52] LABS: Hematocrit (blood only) 40.9 % (42.0-52.0); Hemoglobin 13.5 g/dl (14.0-18.0); Mean Corpuscular Hemoglobin 30.6 pg (25.0-34.0); Mean Corpuscular Volume 92.7 fL (80.0-100.0); Platelet Count 162 K/uL (130-400); RDW Standard Deviation 47.0 fL (36.4-46.3); Red Blood Count 4.41 M/uL (4.70-6.10); White Blood Count 9.66 K/ul (4.8-10.8)
[2025-05-04 08:09] VITALS: BP 120/75; RESP 20; TEMP 98.1; O2SAT 97
[2025-05-04 08:19] LABS: Alanine Aminotransferase 40.0 U/L (7-52); Albumin Globulin Ratio 1.3 (0.9-2); Albumin Level 3.2 gm/dl (3.4-5.0); Alkaline Phosphatase 140.0 U/L (34-104); Anion Gap 5.0 (3-11); Bilirubin,Total 0.9 mg/dl (0.2-1.0); Blood Urea Nitrogen 33.0 mg/dl (6-23); Calcium 8.5 mg/dl (8.6-10.3); Carbon Dioxide 31.0 mmol/L (21-32); Chloride 103.0 mmol/L (98-107); Creatinine Clr Calc Pharmacy 57.1 ml/min; Globulin 2.5 gm/dl (2.5-4.0); Glucose 108.0 mg/dl (70-99(Fasting)); Potassium 3.8 mmol/L (3.5-5.1); Sodium 139.0 mmol/L (136-145); Total Protein 5.7 gm/dl (6.0-8.3)
[2025-05-04 09:50] VITALS: PULSE 80
--- NOTE | 2025-05-04 11:18 | Discharge Summary ---
Date of Service May 04, 2025 Admission HPI Per Admitting Provider Mr. Prince Maria is a 80 yo male, he live [facility]. PMH of Aortic stenosis, cAD, CHF with preserve EF, HTN, mitral regurgitation. since 3-4 days ago, he been having shortness of breath, congestion and diffic ulty breathing since yesterday, he was also having chest discomfort episode. he's normally can walk around his [facility] block ([address] fe[address]) several times per day. his last echo show EF of 70% on 04/27/2025, he's was [facility] for evaluation, he's was found to has hypoxic and need 15 liter via ventimask his CTA negative for PE, but found PNA versus volume overload, he's covid positive he's was found to has A-fib episode, seen by ED physician and started on amaiodarone infusion ED colleague started him on ceftriaxone, doxycycycline. he's s/p lasix on evaluation at 4:45pm, his BP was soft in the 100, and HR in 120 he's was AAOx3; no dizziness. he's requested for full code he's denied updating the daughter Admission Exam (Per Admitting) Constitutional The patient is awake, alert and oriented 3, well developed and well nourished, normocephalic and atraumatic, lying in bed and in no acute distress. HEENT--PERRL, EOMI, mucous membranes and oropharynx mildly dry Neck--supple. No JVD. No bruits. Thyroid normal, trachea midline, no adenopathy. Heart--normal S1 and S2. No murmurs, rubs or gallops. Lungs--clear bilaterally, no respiratory distress, no accessory muscle use. Abdomen--normal bowel sounds and soft. Extremities--no cyanosis or clubbing. No edema. Dermatologic--normal skin turgor, normal color, no abnormal lymph nodes, no rash. Neurologic--cranial nerves II through XII grossly intact. Rheumatologic--normal range of motion. Psychiatric--normal affect. Discharge Data Consultations 04/27/25 16:17 ED Decision to Admit Stat 04/27/25 16:41 Consult Head Athletic Trainer Routine 04/28/25 02:53 Consult Cardiology Routine 04/28/25 10:43 Consult Infectious Diseases Routine 05/03/25 10:01 Consult Palliative Care Routine Consult Psychiatry Routine Procedures Performed Operation Date: 04/30/25 08:00 Actual Procedures p Cineradiography w/Routine Exam - Octavio Lynn MD, PhD p Cath, Coronaries ONLY (no LV) - Octavio Lynn MD, PhD Hospital Course (1) A-fib: Mr.william maria is a 80 yo male, prisoner; with PMH of CAD, CHFpEF, aortic stenosis, mitral stenosis, CKD, depression with psychosis, hypertension on 04/27, presented [facility] with cough, left side chest pain shortness of breath for 3-4 days, Covid positive hypotensive, hypoxic needing 15-30 liter, and admitted to ICU he's was in A-fib and there is question of V-tach, started on amiodarone infusion, and heparin for ACS dose he's was started on remdesmivor for covid PNA, and remains on doxycycline 04/30/ cardiology performs LHC shows left main disease and consideration of AoVr also teritary care referral oxygen status stable, no chest pain, no shortness of breath # STEMI, multivessel CAD troponin peak at 66,785 cardiologyy noted inferior wall ST elevation and Q wave in the aVF and lateral ST depression s/p LHC on ,found multivessel cAD pt does not want to have referral to tertiary center, does not want to take risk of surgery, tolerated uptitration of metoprolol, converted amiodarone to po, transition heparin to eliquis for afib Palliative care did speak to pt, will make dnr while inpatient, consider further discussions of polst upon return to [facility] acute A-fib, V-tach he's on metoprolol 50 BID and amiodarone he's on crestor 5mg . eliquis covid infection, acute respiratory failure decadron x 10 days LD 05/07, completed remdemsivir he's on mucinex. he's weaning oxygen ID dc cefepime. HFrEF, he's normally take atenolol 50mg and bumex 2mg daily he's was switch to metoprolol. will consider if need to reduce bumex dose( on hold with lower blood pressure) and continue lisinpril . psychosis he's on thiothixene 2mg (4 caps) BID 8mg BID, Psychiatrist reports that pt has sound reasoning in his decision making capacity to refuse revascularization code status: full code will discuss further (2) V tach: (3) COVID: (4) Hypoxic respiratory failure: (5) Pneumonia: Coding Level of Care Code 14909 INP/OBS DISCH >30 MIN Diagnoses A-fib I48.91 V tach I47.20 COVID U07.1 Hypoxic respiratory failure J96.91 Pneumonia J18.9 Time Spent (min) 35
== END 2025-05-04 11:33 | DRG 280 ==
LOC: SUATTDRO → ED 14:52 → 1E 16:41 → SUATTDRO 16:41 → 1E 17:43 → 2S 04-29 14:21
PROC: CLB.CCO (2025-04-30 08:00)